=== PATIENT | male | born 1975 | race Two or more races ===

== ENCOUNTER 2022-07-15 07:40 | Day surgery (SDC) | payer MEDICAID, SELFPAY ==
--- NOTE | 2022-07-14 12:22 | HO.ANESPROP2 ---
Documented by User: Kerry Kan NP 07/14/22 12:22 HPI - Anesthesia Eval Consult details Narrative: 47yo M for Colonoscopy [facility] Past Medical History Medical History (Updated 07/14/22 @ 12:02 by Kezia Muller, CASEY) Arthritis Depression H/O non-insulin dependent diabetes mellitus HTN (hypertension) Hyperlipidemia Neuropathy Right cataract Social History Social History Patient Tobacco Use Status: Former Tobacco user Quit Date: 22 years ago Use of substances other than those prescribed or required for medical reasons: No Are you DNR?: No Advance Directives: No Advance Directives Information Provided: Yes Meds Allergies Allergy/AdvReac Type Severity Reaction Status Date / Time No Known Allergies Allergy Unverified 04/16/20 14:38 dust Allergy Unknown Uncoded 11/10/17 00:00 Home Medications Medication Instructions Recorded Confirmed Last Taken Type atorvastatin 20 mg tablet 1 tab PO DAILY 07/14/22 07/14/22 Unknown History dulaglutide 0.75 mg/0.5 mL mg subcut QWEEK 07/14/22 Unknown History subcutaneous pen injector (Trulicity) gabapentin 100 mg capsule 1 cap PO BID 07/14/22 07/14/22 Unknown History metformin 1,000 mg tablet 1 tab PO DAILY 07/14/22 07/15/22 Unknown History ustekinumab 90 mg/mL subcutaneous mg subcut 07/14/22 Unknown History syringe (Stelara) venlafaxine 37.5 mg 1 cap PO DAILY 07/14/22 07/14/22 Unknown History capsule,extended release 24 hr Exam Exam Date and Time: July 14, 2022 1222 Assessment and Plan Assessment Anesthesia Assessment: Chart Reviewed Documented by User: Jackeline Truong MD 07/15/22 09:35 [facility] Active Problems Active Problems: Denies AUDELIA but does snore Past Medical History Medical History (Updated 07/14/22 @ 12:02 by Kezia Muller RN) Arthritis Depression H/O non-insulin dependent diabetes mellitus HTN (hypertension) Hyperlipidemia Neuropathy Right cataract Family History Family history of problems with anesthesia: No Surgical History History of Problems with Anesthesia: No Social History Social History Patient Tobacco Use Status: Former Tobacco user Quit Date: 22 years ago Use of substances other than those prescribed or required for medical reasons: No Are you DNR?: No Advance Directives: No Advance Directives Information Provided: Yes Meds Allergies Allergy/AdvReac Type Severity Reaction Status Date / Time No Known Allergies Allergy Unverified 04/16/20 14:38 dust Allergy Unknown Uncoded 11/10/17 00:00 Home Medications Medication Instructions Recorded Confirmed Last Taken Type atorvastatin 20 mg tablet 1 tab PO DAILY 07/14/22 07/14/22 Unknown History dulaglutide 0.75 mg/0.5 mL mg subcut QWEEK 07/14/22 Unknown History subcutaneous pen injector (Trulicity) gabapentin 100 mg capsule 1 cap PO BID 07/14/22 07/14/22 Unknown History metformin 1,000 mg tablet 1 tab PO DAILY 07/14/22 07/15/22 Unknown History ustekinumab 90 mg/mL subcutaneous mg subcut 07/14/22 Unknown History syringe (Stelara) venlafaxine 37.5 mg 1 cap PO DAILY 07/14/22 07/14/22 Unknown History capsule,extended release 24 hr Exam Height,Weight and Vital Signs: Height 5 ft 5 in Weight 131.542 kg Vital Signs Temp Pulse Resp BP Pulse Ox O2 Del Method 07/15/22 08:13 97.0 F 83 18 159/80 H 97 Room Air Pertinent Lab Results Pertinent Lab Results: Lab Results 07/15/22 Range/Units 08:10 POC Glucose 139 H (60-115) mg/dL Airway Mallampati Class: II (Big neck) TM Dist: >3cm Neck ROM: Full Loose/Missing/Broken Teeth: Yes (Missing bottom left) Heart: RRR Lungs: CTAB Assessment and Plan Assessment Anesthesia Assessment: Anesthesia Plan Discussed Final Anesthetic Review Family History of Problems with Anesthesia: No History of Problems with Anesthesia: No NPO: Yes ASA Class: III Final Preanesthetic Review: No Changes in Pt Med Stat, Meds/Allgs Chart Reviewed, Consent Obtained/Reviewed and Anes Risks/Benef Reviewed Patient Risk: Intermediate Procedure Risk: Low Assessment/Block/Sedation in SS: Assess/Block/Sedation-SS Anesthetic Plan Anesthetic Plan: GA and MAC: Disposition: Standard PACU
[2022-07-15 08:13] VITALS: BP 159/80; PULSE 83; RESP 18; TEMP 36.1; O2SAT 97; BMI 48.2
[2022-07-15 08:22] LABS: Glucose, Whole Blood 139 mg/dL (60-115)
[2022-07-15] MEDS: Sodium Phosphate,Mono-Dibasic 133 ML ENEMA PR ×2 (08:52→09:00)
[2022-07-15] MEDS: Lactated Ringers 1,000 ML 100 ML IVCONT (08:59)
[2022-07-15 09:53] VITALS: BP 126/70; PULSE 100; RESP 20; TEMP 36.9; O2SAT 89
[2022-07-15 09:54] VITALS: O2SAT 98
--- NOTE | 2022-07-15 09:54 | PM.OP ---
Brief Operative Note Date of Service: 07/15/22 Pre-op diagnosis: Screening Post-op diagnosis: other (Diverticulosis) Procedure: Colonoscopy to the cecum and TI Surgeon: Jonathan Harvey Anesthesia: MAC Was an Maritime Guard used for this Procedure?: No Estimated blood loss (mL): 0 Pathology: none sent Condition: stable Disposition: PACU
[2022-07-15 10:08] VITALS: BP 127/69; PULSE 86; RESP 20; TEMP 36.3; O2SAT 97
--- NOTE | 2022-07-15 10:47 | OP_ITS ---
SURGEON: Jonathan Harvey MD INDICATIONS: The patient presents for evaluation of colorectal cancer screening. Full consent has been obtained from him for this, including risks of bleeding and perforation. PREOPERATIVE DIAGNOSIS: Colorectal cancer screening. POSTOPERATIVE DIAGNOSIS: PROCEDURE PERFORMED: Colonoscopy to the cecum and terminal ileum. ESTIMATED BLOOD LOSS: COMPLICATIONS: ANESTHESIA: Monitored anesthesia care. ASSISTANTS: SPECIMENS: POSTOPERATIVE DIAGNOSES: Colorectal cancer screening, mild sigmoid diverticulosis, small internal hemorrhoids. DESCRIPTION OF PROCEDURE: The patient was placed in the left lateral decubitus position. The digital rectal exam revealed no abnormalities. The Olympus video pediatric colonoscope was entered into the rectum and advanced easily to the cecum. Once in the cecum, I did identify a normal-appearing cecal pouch with appendiceal orifice and a normal-appearing ileocecal valve. The terminal ileum was cannulated and appeared normal. The scope was withdrawn back in the colon. The entire cecum and ileocecal valve appeared normal. The scope was slowly withdrawn assessing all mucosal surfaces carefully. For the most part, preparation was very good throughout the colon, although in the portions of the rectum and sigmoid colon, there was some residual stool and liquid, which were all irrigated and suctioned away as best as possible. I did not visualize any sign of polyps, colitis, nor angiodysplasia. There was a mild amount of sigmoid diverticulosis. In the rectum, the scope was retroflexed visualizing some internal hemorrhoids. The scope was straightened and withdrawn from the patient. He tolerated the procedure well and was returned to the recovery area in stable condition. IMPRESSION: 1. Mild sigmoid diverticulosis. 2. Small internal hemorrhoids. PLAN: Given today's negative exam and no family history of colon cancer, I would recommend a followup colonoscopy in 10 years for screening. He will otherwise see me on a p.r.n. basis. MD HE Templeton/ZAYRA / [id number]
== END 2022-07-15 10:50 | disposition home or self-care (01) ==
PROVIDERS: PCP Internal Medicine; Visit Provider Internal Medicine
PROC: 0DJD8ZZ Inspection of Lower Intestinal Tract, Via Natural or Artificial Opening Endoscopic (ICD-10-PCS; CPT 45378; principal; 2022-07-15 09:00)
DX: Z12.11 Encounter for screening for malignant neoplasm of colon (principal); Z83.71 Family history of colonic polyps; K57.30 Diverticulosis of large intestine without perforation or abscess without bleeding; K64.8 Other hemorrhoids; I10 Essential (primary) hypertension; E78.5 Hyperlipidemia, unspecified; E11.9 Type 2 diabetes mellitus without complications; G62.9 Polyneuropathy, unspecified; Z79.85 Long-term (current) use of injectable non-insulin antidiabetic drugs; Z79.899 Other long term (current) drug therapy; Z87.891 Personal history of nicotine dependence
CPT/HCPCS: 45378; 82947

== ENCOUNTER 2022-08-18 13:22 | Outpatient (REF) | payer MEDICAID, SELFPAY ==
--- NOTE | 2022-08-18 08:15 | EMG_ITS ---
Bilateral median and ulnar motor and sensory studies were performed. Bilateral radial sensory studies were performed and paraspinal muscles were tested with a needle. IMPRESSION: 1. Moderately severe bilateral median neuropathy across carpal tunnel. 2. [id number] bilateral ulnar neuropathy across cubital tunnel. MD SOLANGE Justice/JASONL / [id number]
== END 2022-08-18 13:23 | disposition home or self-care (01) ==
LOC: HO.NEURO 13:22
PROVIDERS: PCP Internal Medicine; Visit Provider Family Medicine
DX: R20.0 Anesthesia of skin (principal); E11.65 Type 2 diabetes mellitus with hyperglycemia
CPT/HCPCS: 95886; 95911

== ENCOUNTER → 2022-09-16 10:07 | Outpatient (BNVA) | payer MEDICAID, SELFPAY | PROVIDERS: PCP Internal Medicine; Visit Provider Nurse Practitioner Family | DX: G47.19 Other hypersomnia (principal); R06.83 Snoring; R40.0 Somnolence; I10 Essential (primary) hypertension | CPT/HCPCS: 99202 ==

== ENCOUNTER → 2022-10-07 14:00 | Outpatient (REF) | payer MEDICAID, SELFPAY | LOC: HO.SL 14:00 | PROVIDERS: Visit Provider Nurse Practitioner Family | DX: G47.33 Obstructive sleep apnea (adult) (pediatric) (principal); R06.83 Snoring; G47.19 Other hypersomnia; I10 Essential (primary) hypertension | CPT/HCPCS: 95806 ==

== ENCOUNTER 2022-11-02 10:50 | Outpatient (REF) | payer MEDICAID, SELFPAY ==
--- NOTE | ~2022-11-02 | XR_ITS ---
EXAMINATION: XR FOOT, LEFT CLINICAL INFORMATION: Anterior, dorsal pain. COMPARISON: Radiographs dated 03/30/2017. TECHNIQUE: AP, lateral, and oblique views of the left foot. FINDINGS: Bony alignment and mineralization are normal. No dislocation or right ankle joint effusion is seen. There is mild osteoarthritic change of the tibiotalar joint. At the anterior articular margin of the distal tibia, there are tiny avulsion fragments noted, possibly chronic avulsed osteophytes. An old, healed fracture is noted of the posterior malleolus. Boehler's angle is normal. There is a tiny posterior calcaneal spur. There are atherosclerotic calcifications. No focal soft tissue swelling, gas or foreign body is seen. XR/XR foot LT min 3V IMPRESSION: 1. At the anterior margin of the tibiotalar joint, there are tiny avulsions fragments, possibly chronically avulsed osteophytes. This requires clinical correlation. 2. No dislocation or left ankle joint effusion is seen. 3. There is a tiny posterior calcaneal spur.
== END 2022-11-02 10:51 | disposition home or self-care (01) ==
LOC: HO.XRAY 10:50
PROVIDERS: PCP Family Medicine; Visit Provider Family Medicine
DX: M79.672 Pain in left foot (principal)
CPT/HCPCS: 73630

== ENCOUNTER → 2022-11-30 10:59 | Outpatient (BNVA) | payer MEDICAID, SELFPAY | PROVIDERS: PCP Family Medicine; Visit Provider Orthopaedic Surgery | DX: G56.03 Carpal tunnel syndrome, bilateral upper limbs (principal); G56.23 Lesion of ulnar nerve, bilateral upper limbs | CPT/HCPCS: 99202 ==

== ENCOUNTER 2022-12-05 12:20 | Day surgery (SDC) | payer MEDICAID, SELFPAY ==
--- NOTE | 2022-12-05 09:29 | W.PM.OPN ---
Operative Note Operative Note Date of Service: 12/05/22 Narrative: Preop diagnosis: 1. Right Carpal tunnel syndrome Postop diagnosis: same Procedure: 1. Right Carpal tunnel release Surgeon: Sarah Gary MD Anesthesia: local block using 1% lidocaine with epinephrine Findings: Thickened transverse carpal ligament. EBL: Less than 5 mL Specimens: None Complications: None Disposition: Brought to recovery room in stable condition Plan: Follow-up for 10-14 days for wound check and suture removal Indications: The patient is 47 years old, with right carpal tunnel syndrome that has been unresponsive to nonoperative management. The risks and benefits of operative treatment including but not limited to risk of damage to blood vessels, nerves, tendons, infection, persistent pain, persistent symptoms, or possible need for additional surgery were discussed with the patient and the patient wishes to proceed with surgery. Procedure: Once consent was obtained a local block was performed using a combination of 1% lidocaine with epinephrine. The patient was then brought back to the operating suite and placed on the operative table in supine position. The right upper extremity was prepped and draped in a standard surgical fashion. Once assured that we had a good block, a 2.0 cm longitudinal incision was made centered over the carpal tunnel. The incision was made through the skin to the subcutaneous tissues using a #15 blade. Dissection was made down to the level of the transverse carpal ligament with care being taken to protect the palmar cutaneous nerve. Once the transverse carpal ligament was clearly visualized, a longitudinal incision was made in the transverse carpal ligament 1st using a #15 blade, then using tenotomy scissors under direct visualization. Care was taken to look for and protect the motor branch of the median nerve when seen in this area. Once satisfied with our carpal tunnel release the wound was copiously irrigated with normal saline and hemostasis was obtained with a brief period of local pressure. The skin edges were reapproximated with some 5.0 nylon suture material and a sterile dressing was applied. The patient appears to have tolerated the procedure well and with no complications. All digits were well vascularized at the conclusion of the case.
[2022-12-05 12:30] VITALS: BP 151/82; PULSE 87; RESP 18; TEMP 36.7; O2SAT 97; BMI 50.6
--- NOTE | 2022-12-05 14:45 | MHC.SHP ---
Pre-Procedural Eval Section A Date of Service: 12/05/22 Section B Chief Complaint: Carpal tunnel syndrome, right upper limb Allergies: Allergies Allergy/AdvReac Type Severity Reaction Status Date / Time No Known Allergies Allergy Unverified 11/30/22 11:29 Plan I have reviewed the history and physical and performed a pertinent physical examination on my patient. No changes have occurred unless specified. Time Spent With Patient Time: Total time managing care of this patient today ____ minutes.
--- NOTE | 2022-12-05 15:23 | MHC.SHP ---
Pre-Procedural Eval Section A Date of Service: 12/05/22 The patient is an INPATIENT: No Changes since office visit: No Cold of Flu in the past 2 weeks, No New Medical Problems, No Changes in Medication and No Patient answered all questions The History & Physical has been completed within 30 days and I have reviewed it.: Yes Section B Chief Complaint: Carpal tunnel syndrome, right upper limb Allergies: Allergies Allergy/AdvReac Type Severity Reaction Status Date / Time No Known Allergies Allergy Unverified 11/30/22 11:29 Plan I have reviewed the history and physical and performed a pertinent physical examination on my patient. No changes have occurred unless specified. Time Spent With Patient Time: Total time managing care of this patient today ____ minutes.
== END 2022-12-05 16:04 | disposition home or self-care (01) ==
PROVIDERS: Visit Provider Orthopaedic Surgery
PROC: (CPT 64721; principal; 2022-12-05 16:00)
DX: G56.01 Carpal tunnel syndrome, right upper limb (principal); R20.0 Anesthesia of skin; R20.2 Paresthesia of skin; I10 Essential (primary) hypertension; E78.5 Hyperlipidemia, unspecified; G62.9 Polyneuropathy, unspecified; E11.9 Type 2 diabetes mellitus without complications; L30.9 Dermatitis, unspecified; Z79.899 Other long term (current) drug therapy; Z87.891 Personal history of nicotine dependence
CPT/HCPCS: 64721; J0171

== ENCOUNTER → 2022-12-20 09:14 | Outpatient (BNVA) | payer MEDICAID, SELFPAY | PROVIDERS: Visit Provider Orthopaedic Surgery | DX: G56.03 Carpal tunnel syndrome, bilateral upper limbs (principal); G56.23 Lesion of ulnar nerve, bilateral upper limbs | CPT/HCPCS: 99212 ==

== ENCOUNTER → 2022-12-28 07:57 | Outpatient (BNVA) | payer MEDICAID, SELFPAY | PROVIDERS: PCP Family Medicine; Visit Provider Orthopaedic Surgery | DX: Z48.811 Encounter for surgical aftercare following surgery on the nervous system (principal); G56.02 Carpal tunnel syndrome, left upper limb | CPT/HCPCS: 99212 ==

== ENCOUNTER 2023-01-02 10:55 | Day surgery (SDC) | payer MEDICAID, SELFPAY ==
[2023-01-02 10:02] VITALS: BMI 50.5
[2023-01-02 11:10] VITALS: BP 175/61; PULSE 82; RESP 20; TEMP 36.6; O2SAT 97
--- NOTE | 2023-01-02 13:19 | MHC.SHP ---
Pre-Procedural Eval Section A Date of Service: 01/02/23 The patient is an INPATIENT: No Changes since office visit: No Cold of Flu in the past 2 weeks, No New Medical Problems, No Changes in Medication and No Patient answered all questions The History & Physical has been completed within 30 days and I have reviewed it.: Yes Section B Chief Complaint: Carpal tunnel syndrome, left upper limb Allergies: Allergies Allergy/AdvReac Type Severity Reaction Status Date / Time No Known Allergies Allergy Unverified 12/28/22 08:14 Plan I have reviewed the history and physical and performed a pertinent physical examination on my patient. No changes have occurred unless specified. Time Spent With Patient Time: Total time managing care of this patient today ____ minutes.
--- NOTE | 2023-01-02 13:19 | W.PM.OPN ---
Operative Note Operative Note Date of Service: 01/02/23 Narrative: Preop diagnosis: 1. left Carpal tunnel syndrome Postop diagnosis: same Procedure: 1. left Carpal tunnel release Surgeon: Sarah Gary MD Anesthesia: local block using 1% lidocaine with epinephrine Findings: Thickened transverse carpal ligament. EBL: Less than 5 mL Specimens: None Complications: None Disposition: Brought to recovery room in stable condition Plan: Follow-up for 10-14 days for wound check and suture removal Indications: The patient is 47 years old, with left carpal tunnel syndrome that has been unresponsive to nonoperative management. The risks and benefits of operative treatment including but not limited to risk of damage to blood vessels, nerves, tendons, infection, persistent pain, persistent symptoms, or possible need for additional surgery were discussed with the patient and the patient wishes to proceed with surgery. Procedure: Once consent was obtained a local block was performed using a combination of 1% lidocaine with epinephrine. The patient was then brought back to the operating suite and placed on the operative table in supine position. The left upper extremity was prepped and draped in a standard surgical fashion. Once assured that we had a good block, a 2.0 cm longitudinal incision was made centered over the carpal tunnel. The incision was made through the skin to the subcutaneous tissues using a #15 blade. Dissection was made down to the level of the transverse carpal ligament with care being taken to protect the palmar cutaneous nerve. Once the transverse carpal ligament was clearly visualized, a longitudinal incision was made in the transverse carpal ligament 1st using a #15 blade, then using tenotomy scissors under direct visualization. Care was taken to look for and protect the motor branch of the median nerve when seen in this area. Once satisfied with our carpal tunnel release the wound was copiously irrigated with normal saline and hemostasis was obtained with a brief period of local pressure. The skin edges were reapproximated with some 5.0 nylon suture material and a sterile dressing was applied. The patient appears to have tolerated the procedure well and with no complications. All digits were well vascularized at the conclusion of the case.
== END 2023-01-02 13:40 | disposition home or self-care (01) ==
PROVIDERS: PCP Family Medicine; Visit Provider Orthopaedic Surgery
PROC: (CPT 64721; principal; 2023-01-02 11:20)
DX: G56.02 Carpal tunnel syndrome, left upper limb (principal); E11.9 Type 2 diabetes mellitus without complications; G62.9 Polyneuropathy, unspecified; I10 Essential (primary) hypertension; E78.5 Hyperlipidemia, unspecified; F32.A Depression, unspecified; L30.9 Dermatitis, unspecified; Z87.891 Personal history of nicotine dependence; Z79.899 Other long term (current) drug therapy
CPT/HCPCS: 64721; J0171

== ENCOUNTER → 2023-01-17 08:59 | Outpatient (BNVA) | payer MEDICAID, SELFPAY | PROVIDERS: PCP Family Medicine; Visit Provider Orthopaedic Surgery | DX: Z47.89 Encounter for other orthopedic aftercare (principal); Z86.69 Personal history of other diseases of the nervous system and sense organs | CPT/HCPCS: 99212 ==

== ENCOUNTER 2023-04-05 11:15 | Outpatient (AMB) | payer MEDICAID, SELFPAY ==
--- NOTE | 2023-04-05 11:18 | A.OFFVIS_ITS ---
Intake Vital Signs 04/05/23 11:27 Weight 289 lb BP 128/82 Blood Pressure Location Lt brachial Position Sitting Pulse 78 Pulse Source Pulse Oximeter Pulse Oximetry (%) 97 Oxygen Delivery Method Room Air Intake Visit Reasons: 2m follow up AUDELIA-Confirmed Intake Note: F/U AUDELIA Garment Fitter Required: No Allergies No Known Allergies Allergy (Unverified 04/05/23 11:19) HPI HPI Comments History of Present Illness Details 47 y/o male patient presents for follow up of sleep study. The home sleep study result was significant for severe degree of sleep apnea. The AHI was 32/hr and oxygen rukhsana was 73%. Pt started APAP [id number]. The CPAP compliance and therapy response reviewed. Pt is not compliant his CPAP. He reports PTSD and having difficulty using CPAP mask. He has psychiatry and having next and plans to start some medications. He only can sleep 4 hrs with CPAP. [facility] Medical History (Updated 05/03/23 @ 22:11 by Brittney Pierre CNP) Cataract Right cataract Neuropathy Depression Hyperlipidemia Arthritis HTN (hypertension) H/O non-insulin dependent diabetes mellitus Surgical History (Updated 04/05/23 @ 11:26 by Manasa Lacey CMA) History of carpal tunnel surgery Family History Mother HTN (hypertension) Age related osteoporosis Cancer Dementia Father Alzheimer disease Social History (Updated 04/05/23 @ 11:26 by Manasa Lacey CMA) Alcohol intake: never Patient Tobacco Use Status: Former Tobacco user Quit Date: 22 years ago Review of Systems Const All systems reviewed & are unremarkable except as noted in HPI and below ENT Reports Normal hearing present Neuro Reports Normal hearing present Physical Exam Vital Signs: Last Vital Signs Pulse 78 04/05/23 11:27 BP 128/82 04/05/23 11:27 Pulse Ox 97 04/05/23 11:27 Oxygen Delivery Method Room Air 04/05/23 11:27 Const General: cooperative Nutritional Appearance: obese Orientation/consciousness: patient oriented x3 HEENT Throat: Yes other (mallampati grade 4) Neck Neck: Yes full ROM and Yes supple Resp Effort & Inspection: normal respiratory effort and able to speak in complete sentences Neuro General: patient oriented x3, gait normal and moves all extremities Cranial nerves: Yes Bilaterally intact EOM present, Yes Normal facial strength present, Yes Midline tongue present, Yes Symmetric palate elevation present, Yes Normal hearing present, Yes Ability to bilaterally rotate head present and Yes Ability to bilaterally elevate shoulders present Cognition (Neuro): normal cognition Gait exam (Neuro): Normal gait present Motor exam (neuro): 5/5 motor strength present throughout, Pronator motor function not present and no tremor noted Psych Appearance: grossly normal Mental Status: mental status grossly normal Affect: normal affect Attitude: cooperative Assessment & Plan Assessment & Plan (1) AUDELIA on CPAP: Code(s): G47.33 - Obstructive sleep apnea (adult) (pediatric) Plan Advised patient to try CPAP while he is awake, when he watches TV or rest. Contineu to try to use CPAP nightly and more than 4 hrs to get use to it. F/u with psychiatrist to treat PTSD. Coding Level of Care Code Est Pt Level 3 (54671) Diagnoses AUDELIA on CPAP G47.33
[2023-04-05 11:27] VITALS: BP 128/82; PULSE 78; O2SAT 97
== END 2023-04-05 11:38 | disposition home or self-care (01) ==
PROVIDERS: Visit Provider Nurse Practitioner Family
DX: G47.33 Obstructive sleep apnea (adult) (pediatric) (principal)
CPT/HCPCS: 99213

== ENCOUNTER → 2023-04-05 11:15 | Outpatient (BNVA) | payer MEDICAID, SELFPAY | PROVIDERS: Visit Provider Nurse Practitioner Family | DX: G47.33 Obstructive sleep apnea (adult) (pediatric) (principal) | CPT/HCPCS: 99212 ==

== ENCOUNTER 2023-06-14 11:52 | Outpatient (REF) | payer MEDICAID, SELFPAY ==
[2023-06-14 13:23] LABS: MANUAL DIFF FLAG NO
[2023-06-14 13:35] LABS: Basophils Absolute Auto 0.1 X10*3/uL (0.0-0.2); Basophils Percent Auto 0.7 % (0-2); Eosinophils Absolute Auto 0.5 X10*3/uL (0.0-0.4); Hematocrit 40.2 % (42.0-52.0); Hemoglobin 13.2 g/dl (14.0-18.0); Imm Gran Abs Auto 0.04 X10*3/uL (0.00-0.03); Imm Gran Pct Auto 0.4 % (0.0-0.4); Lymphocytes Absolute Auto 2.7 X10*3/uL (1.2-4.9); Lymphocytes Percent Auto 26.5 % (20-40); Mean Corpuscular HGB Conc 32.8 g/dl (31.0-36.0); Mean Corpuscular Hemoglobin 27.5 pg (27.0-33.0); Mean Corpuscular Volume 83.8 fL (80.0-98.0); Mean Platelet Volume 10.1 fL (9.4-12.4); Monocytes Absolute Auto 0.6 X10*3/uL (0.1-1.2); Monocytes Percent Auto 6.4 % (2-11); Neutrophils Absolute Auto 6.1 x10*3/uL (2.0-8.3); Platelet Count 266 X10*3/uL (160-400); Red Cell Distribution Width 13.2 % (11.0-16.0); White Blood Count 10.1 X10*3/uL (4.8-10.8)
[2023-06-14 13:51] LABS: Alanine Aminotransferase 68 U/L (0-40); Alkaline Phosphatase 92 U/L (39-117); Anion Gap 9 (12-20); Aspartate Amino Transferase 31 U/L (5-37); Bilirubin Total 0.3 mg/dL (0.0-1.0); Blood Urea Nitrogen 9 mg/dL (9-16); C Reactive Protein 0.81 mg/dL (< or = 0.50); Calcium 9.5 mg/dL (8.4-10.2); Carbon Dioxide 28 mmol/L (22-29); Chloride 104 mmol/L (96-108); Estimated Glomerular Filt Rate > 60; Glucose Random 168 mg/dL (60-115); Potassium 4.4 mmol/L (3.3-5.1); Sodium 137 mmol/L (135-145); Total Protein 7.4 g/dL (6.5-8.0)
[2023-06-14 14:06] LABS: TSH reflex Free T4 1.35 uIU/mL (0.32-4.0)
[2023-06-14 14:07] LABS: Cholesterol 103 mg/dL (<200); HDL Cholesterol 33 mg/dL (>40); LDL Cholesterol Calculated 48 mg/dL (<100); Triglycerides 113 mg/dL (<150)
[2023-06-14 14:16] LABS: Erythrocyte Sedimentation Rate 26 MM/HR (0-15)
[2023-06-14 14:32] LABS: Creatinine Urine 74.34 mg/dL
[2023-06-14 14:52] LABS: Reflex LDLD? No
== END 2023-06-14 11:53 | disposition home or self-care (01) ==
LOC: HO.HHCL 11:52
PROVIDERS: Visit Provider Family Medicine
DX: M25.50 Pain in unspecified joint (principal); M79.10 Myalgia, unspecified site; E11.65 Type 2 diabetes mellitus with hyperglycemia
CPT/HCPCS: 36415; 80053; 80061; 82043; 82550; 82570; 84443; 85025; 85652; 86140

== ENCOUNTER 2023-07-12 13:41 | Outpatient (REF) | payer MEDICAID, SELFPAY ==
--- NOTE | ~2023-07-12 | XR_ITS ---
EXAMINATION: Bilateral hand series. Bilateral foot series. CLINICAL INFORMATION: Pain in the joints COMPARISON: X-ray the left foot October 2022 TECHNIQUE: 3 views of each hand. 3 views of each foot FINDINGS: Right hand: Bones joints and soft tissues are normal. No erosions. Arterial calcification noted. Left hand: The bones joints and soft tissues are normal. No erosions. Arterial calcification noted. Right foot: There is mild to moderate osteoarthritis of the first metatarsophalangeal joint with marginal osteophytes and mild joint space narrowing. There are small calcaneal spurs. Radiopaque metallic object overlies the ankle region. Arterial calcification. Left foot: Small calcaneal spurs. Arterial calcification. Bones joints and soft tissues otherwise unremarkable. XR/XR hand RT min 3V IMPRESSION: RIGHT HAND: Normal. Calcific atherosclerotic disease LEFT HAND: Normal. Calcific atherosclerotic disease. Right foot: Mild to moderate osteoarthritis of the first metatarsophalangeal joint. Calcific atherosclerotic disease. Calcaneal spurs Left foot: Calcaneal spurs. Calcific atherosclerotic disease.
--- NOTE | ~2023-07-12 | XR_ITS ---
EXAMINATION: XR SACROILIAC JOINTS CLINICAL INFORMATION: Pain in the joint COMPARISON: None available. TECHNIQUE: 3 views of the sacroiliac joints FINDINGS: Bones and soft tissues are normal. No fracture. Alignment is anatomic. Sacroiliac joint spaces are well-maintained without erosions or surrounding sclerosis. XR/XR sacroiliac joint min 3V IMPRESSION: Normal sacroiliac joints.
--- NOTE | ~2023-07-12 | XR_ITS ---
EXAMINATION: Bilateral hand series. Bilateral foot series. CLINICAL INFORMATION: Pain in the joints COMPARISON: X-ray the left foot October 2022 TECHNIQUE: 3 views of each hand. 3 views of each foot FINDINGS: Right hand: Bones joints and soft tissues are normal. No erosions. Arterial calcification noted. Left hand: The bones joints and soft tissues are normal. No erosions. Arterial calcification noted. Right foot: There is mild to moderate osteoarthritis of the first metatarsophalangeal joint with marginal osteophytes and mild joint space narrowing. There are small calcaneal spurs. Radiopaque metallic object overlies the ankle region. Arterial calcification. Left foot: Small calcaneal spurs. Arterial calcification. Bones joints and soft tissues otherwise unremarkable. XR/XR hand LT min 3V IMPRESSION: RIGHT HAND: Normal. Calcific atherosclerotic disease LEFT HAND: Normal. Calcific atherosclerotic disease. Right foot: Mild to moderate osteoarthritis of the first metatarsophalangeal joint. Calcific atherosclerotic disease. Calcaneal spurs Left foot: Calcaneal spurs. Calcific atherosclerotic disease.
--- NOTE | ~2023-07-12 | XR_ITS ---
EXAMINATION: Bilateral hand series. Bilateral foot series. CLINICAL INFORMATION: Pain in the joints COMPARISON: X-ray the left foot October 2022 TECHNIQUE: 3 views of each hand. 3 views of each foot FINDINGS: Right hand: Bones joints and soft tissues are normal. No erosions. Arterial calcification noted. Left hand: The bones joints and soft tissues are normal. No erosions. Arterial calcification noted. Right foot: There is mild to moderate osteoarthritis of the first metatarsophalangeal joint with marginal osteophytes and mild joint space narrowing. There are small calcaneal spurs. Radiopaque metallic object overlies the ankle region. Arterial calcification. Left foot: Small calcaneal spurs. Arterial calcification. Bones joints and soft tissues otherwise unremarkable. XR/XR foot RT 2V IMPRESSION: RIGHT HAND: Normal. Calcific atherosclerotic disease LEFT HAND: Normal. Calcific atherosclerotic disease. Right foot: Mild to moderate osteoarthritis of the first metatarsophalangeal joint. Calcific atherosclerotic disease. Calcaneal spurs Left foot: Calcaneal spurs. Calcific atherosclerotic disease.
--- NOTE | ~2023-07-12 | XR_ITS ---
EXAMINATION: Bilateral hand series. Bilateral foot series. CLINICAL INFORMATION: Pain in the joints COMPARISON: X-ray the left foot October 2022 TECHNIQUE: 3 views of each hand. 3 views of each foot FINDINGS: Right hand: Bones joints and soft tissues are normal. No erosions. Arterial calcification noted. Left hand: The bones joints and soft tissues are normal. No erosions. Arterial calcification noted. Right foot: There is mild to moderate osteoarthritis of the first metatarsophalangeal joint with marginal osteophytes and mild joint space narrowing. There are small calcaneal spurs. Radiopaque metallic object overlies the ankle region. Arterial calcification. Left foot: Small calcaneal spurs. Arterial calcification. Bones joints and soft tissues otherwise unremarkable. XR/XR foot LT 2V IMPRESSION: RIGHT HAND: Normal. Calcific atherosclerotic disease LEFT HAND: Normal. Calcific atherosclerotic disease. Right foot: Mild to moderate osteoarthritis of the first metatarsophalangeal joint. Calcific atherosclerotic disease. Calcaneal spurs Left foot: Calcaneal spurs. Calcific atherosclerotic disease.
--- NOTE | ~2023-07-12 | XR_ITS ---
EXAMINATION: XR CERVICAL SPINE CLINICAL INFORMATION: Psoriasis, unspecified COMPARISON: None available. TECHNIQUE: 4 views of the cervical spine were obtained. FINDINGS: The tip of the odontoid is obscured on the open-mouth view. C7 is obscured by the soft tissues of the patient's shoulder on the lateral view. Is partly seen on the Swimmer's view. There is straightening of the usual cervical lordosis which can be seen with muscle spasm or be due to patient positioning. There is no fracture or subluxation. Prevertebral soft tissues are within normal limits. Anterior marginal osteophytes extend off the inferior endplate of C6. There is no significant disc space narrowing. XR/XR cervical spine 3V IMPRESSION: 1. Straightening of the usual cervical lordosis which can be seen with muscle spasm or be due to patient positioning. 2. Anterior marginal osteophytes extend off the inferior endplate of C6.
--- NOTE | ~2023-07-12 | XR_ITS ---
EXAMINATION: XR LUMBOSACRAL SPINE CLINICAL INFORMATION: Pain in unspecified joint COMPARISON: None available. TECHNIQUE: Three views of the lumbosacral spine. FINDINGS: There are 5 nonrib-bearing lumbar-type vertebral bodies. The height of the vertebral bodies is well-maintained. There is no disc space narrowing. There is no spondylolisthesis. There is slight straightening of the usual lumbar lordosis which can be seen with muscle spasm. There are small early anterior marginal osteophytes from L2 through L5. Mild degenerative facet joint disease seen at L4-L5 and L5-S1. There is mild sclerosis noted about the inferior aspects of both sacroiliac joints. XR/XR lumbar spine 2-3V IMPRESSION: 1. Muscle spasm. 2. Mild degenerative facet joint disease at L4-L5 and L5-S1. 3. Mild sclerosis about the inferior aspects of the sacroiliac joints. Dedicated radiographs of the cingulate joints could be obtained.
[2023-07-12 15:12] LABS: MANUAL DIFF FLAG NO
[2023-07-12 15:28] LABS: Basophils Absolute Auto 0.1 X10*3/uL (0.0-0.2); Basophils Percent Auto 0.7 % (0-2); Eosinophils Absolute Auto 0.4 X10*3/uL (0.0-0.4); Eosinophils Percent Auto 4.1 % (0-4); Hemoglobin 12.9 g/dl (14.0-18.0); Imm Gran Abs Auto 0.05 X10*3/uL (0.00-0.03); Imm Gran Pct Auto 0.5 % (0.0-0.4); Lymphocytes Absolute Auto 2.8 X10*3/uL (1.2-4.9); Lymphocytes Percent Auto 27.9 % (20-40); Mean Corpuscular HGB Conc 33.9 g/dl (31.0-36.0); Mean Corpuscular Hemoglobin 28.5 pg (27.0-33.0); Mean Corpuscular Volume 84.1 fL (80.0-98.0); Mean Platelet Volume 10.3 fL (9.4-12.4); Monocytes Absolute Auto 0.7 X10*3/uL (0.1-1.2); Monocytes Percent Auto 6.7 % (2-11); Neutrophils Percent Auto 60.1 % (45-73); Platelet Count 236 X10*3/uL (160-400); Red Blood Count 4.52 X10*6/uL (4.60-5.80); Red Cell Distribution Width 13.2 % (11.0-16.0); White Blood Count 9.9 X10*3/uL (4.8-10.8)
[2023-07-12 16:53] LABS: Alanine Aminotransferase 92 U/L (0-40); Alkaline Phosphatase 95 U/L (39-117); Anion Gap 12 (12-20); Aspartate Amino Transferase 46 U/L (5-37); Bilirubin Total 0.3 mg/dL (0.0-1.0); Blood Urea Nitrogen 11 mg/dL (9-16); Calcium 9.6 mg/dL (8.4-10.2); Carbon Dioxide 28 mmol/L (22-29); Chloride 101 mmol/L (96-108); Estimated Glomerular Filt Rate > 60; Glucose Random 164 mg/dL (60-115); Potassium 3.9 mmol/L (3.3-5.1); Sodium 137 mmol/L (135-145); Total Protein 7.4 g/dL (6.5-8.0)
[2023-07-14 14:28] LABS: SM/Ribonucleoprotein Ab <1.0 NEG AI (<1.0 NEG); Smith Protein <1.0 NEG AI (<1.0 NEG)
[2023-07-17 23:03] LABS: HLA B27 Negative (Negative)
[2023-07-18 11:14] LABS: Anti Nuclear Antibody Screen NEGATIVE (NEGATIVE)
== END 2023-07-12 13:42 | disposition home or self-care (01) ==
LOC: HO.XRAY 13:41
PROVIDERS: PCP Family Medicine; Visit Provider Nurse Practitioner Family
DX: M25.50 Pain in unspecified joint (principal); L40.9 Psoriasis, unspecified; E11.42 Type 2 diabetes mellitus with diabetic polyneuropathy; M15.9 Polyosteoarthritis, unspecified
CPT/HCPCS: 36415; 72040; 72100; 72202; 73130; 73620; 80053; 85025; 86038; 86235; 86812; 99212

== ENCOUNTER 2023-07-12 13:41 | Outpatient (AMB) | payer MEDICAID, SELFPAY ==
--- NOTE | 2023-07-12 13:52 | MHC.OFFVIS ---
Intake Vital Signs 07/12/23 13:54 Height 5 ft 5 in Weight 287 lb 11.252 oz BMI 47.9 BP 140/72 H Blood Pressure Location Lt brachial Position Sitting Respiration 17 Pulse 63 Pulse Source Pulse Oximeter Temp 97.2 F Temp Source Tympanic Pulse Oximetry (%) 98 Oxygen Delivery Method Room Air Intake Visit Reasons: Polyarthralgia Local Delivery Truck Driver Required: No Allergies No Known Allergies Allergy (Unverified 07/12/23 13:55) Medication List - Last Reconciled 07/12/23 by Cece Ruiz RN atorvastatin 20 mg PO BEDTIME dulaglutide (Trulicity) mg subcut QWEEK gabapentin 1 cap PO BID losartan 100 mg PO DAILY metformin 1,000 mg PO BID sertraline 25 mg PO QAM sildenafil (Viagra) 50 mg PO DAILY PRN triamcinolone acetonide 0.1% appl topical ustekinumab (Stelara) mg subcut HPI HPI Comments History of Present Illness Details Dalton is a 47 y/o male patient with history of psoriasis, HTN and T2DM, sleep apnea, who presents for evaluation of joint pain, possibly psoriatic arthritis. The patient reports he has been suffering from increasing joint pain for many years, more in the last 2 years. He does endorse that his knees are [id number] per Ortho and the pain has lessened in both knees since he has lost weight. His main concern is stiffness and pain in upper back, his neck and shoulders. He also reports pain/tenderness at the dorsum of his feet and burning to the dorsum of his hands. He has had bilateral carpal tunnel surgery less than a year ago and reports residual tenderness to the incision sites. He currently is on Stelara for psoriasis. He has had 3 injections for Stelara and is due for the next injection within a month. He reports that Stelara has been very effective in clearing up and managing his psoriasis. He denies any side effects from Stelara. His psoriasis was always treated with topicals, therefore Stelara is the 1st immunomodulator he is prescribed. When asked, the patient denies erythematous, warm, swollen joints, plantar fasciitis, uveitis, sacroiliitis and SI joint pain, lower back pain, chronic tendinitis, and Achilles tendons pain. He denies morning stiffness lasting more than 10 minutes. He states when he gets up in the morning he does feel some stiffness but once he gets moving he is fine within 5-10 minutes. Patient denies Raynaud's phenomenon, butterfly rash on face or other rashes; denies photosensitivity - getting sick or developing a rash from being out in the sun; denies blood or froth in urine; patient denies SOB urelated to his deconditioned state, chest pain. Patient denies hx of Carditis or Pleuritis. Patient denies any history of DVT/PE. Denies fevers, excessive fatigue, unexplained weight-loss or weight-gain; Denies: thinning hair or hair loss. Denies: dry, itchy eyes, red burning eyes needing steroids to treat; dry mouth, mouth sores or ulcers; nose bleed; ringing in the ear Denies abdominal pain, blood or mucous in stool; nausea, vomiting and diarrhea , difficulty swallowing, heartburn. He has no personal or known family history of inflammatory or autoimmune processes, Crohn's or ulcerative colitis. FOR[facility]LY [facility] Medical History Cataract Right cataract Neuropathy Depression Hyperlipidemia Arthritis HTN (hypertension) H/O non-insulin dependent diabetes mellitus Surgical History History of carpal tunnel surgery Family History Mother HTN (hypertension) Age related osteoporosis Cancer Dementia Father Alzheimer disease Social History Alcohol intake: never Patient Tobacco Use Status: Former Tobacco user Quit Date: 22 years ago Review of Systems Const All systems reviewed & are unremarkable except as noted in HPI and below Physical Exam Vital Signs: Last Vital Signs Temp 97.2 F 07/12/23 13:54 Pulse 63 07/12/23 13:54 Resp 17 07/12/23 13:54 BP 140/72 H 07/12/23 13:54 Pulse Ox 98 07/12/23 13:54 Oxygen Delivery Method Room Air 07/12/23 13:54 BMI result Body Mass Index 47.9 APPEARANCE: Patient in no acute distress EYES no redness, pupils equal and reactive to light, eyelids normal EARS:? External ear normal, canal clear and tympanic membrane normal. NOSE/SINUS:? Airflow through both nares, no nasal discharge, no bleeding THROAT:? Oral mucosa moist, no ulcerations NECK:? No thyromegaly or masses, no adenopathy, trachea midline. HEART:? Regular rhythm, S1-S2 heard, no murmurs, rubs or gallops. LUNG:? Clear to percussion and auscultation ABD:? Normal bowel sounds, no organomegaly, masses or tenderness. EXTREMITIES:? No edema, no calf tenderness, normal peripheral pulses. NEURO:? Oriented and alert x3.? No focal weakness.? Reflexes symmetric.? Gait normal. SKIN:? There are no skin lesions evident. No objective signs of Raynaud's phenomenon. JOINT EXAM: ?? Cervical Spine:.? Full range of motion without pain; no tenderness. Thoracic Spine:.? No scoliosis.? No tenderness on palpation. Lumbar Spine:.? Alignment normal.? Full range of motion without pain, no tenderness. Chest Wall:.? No tenderness, swelling, increased warmth or erythema. Hands:.? Normal pain-free range of motion without tenderness, swelling, increased warmth or erythema. Able to make a full fist and has a good blower insulator strength. No active synovitis otherwise Wrists:.? Normal pain-free range of motion without tenderness, swelling, increased warmth or erythema. Elbows:. Normal pain-free range of motion without tenderness, swelling, increased warmth or erythema. Shoulders:.?? Full range of motion without pain. No tenderness, weakness, swelling, increased warmth or erythema. Hips:.? Full range of motion without pain. Hip bursa:.? No tenderness. Knees:.?? Normal pain-free range of motion without tenderness, swelling, increased warmth or erythema.? There is no effusion or crepitation Ankles:.? Bilateral Normal range of motion with mild discomfort on the left ankle, with tenderness, trace swelling but no increased warmth or erythema. Ankle monitor in place Feet:.? Normal pain-free range of motion without swelling, increased warmth or erythema. Tenderness to bilateral dorsum Tender points:? No tenderness to digital palpation at the occiput, trapezius, second rib, lateral epicondyle, knees, greater trochanter and gluteal area bilaterally. ? Results Reviewed Results Reviewed: Laboratory Tests 06/14/23 06/14/23 11:57 11:59 Hgb 13.2 L Hct 40.2 L Eos % (Auto) 5.0 H ESR 26 H ALT 68 H C-Reactive Protein 0.81 H Microalb/Creat Ratio 47.0 H 11/02/2022 EXAMINATION: XR FOOT, LEFT CLINICAL INFORMATION: Anterior, dorsal pain. COMPARISON: Radiographs dated 03/30/2017. TECHNIQUE: AP, lateral, and oblique views of the left foot. FINDINGS: Bony alignment and mineralization are normal. No dislocation or right ankle joint effusion is seen. There is mild osteoarthritic change of the tibiotalar joint. At the anterior articular margin of the distal tibia, there are tiny avulsion fragments noted, possibly chronic avulsed osteophytes. An old, healed fracture is noted of the posterior malleolus. Boehler's angle is normal. There is a tiny posterior calcaneal spur. There are atherosclerotic calcifications. No focal soft tissue swelling, gas or foreign body is seen. XR/XR foot LT min 3V IMPRESSION: 1. At the anterior margin of the tibiotalar joint, there are tiny avulsions fragments, possibly chronically avulsed osteophytes. This requires clinical correlation. 2. No dislocation or left ankle joint effusion is seen. 3. There is a tiny posterior calcaneal spur. Assessment & Plan Assessment & Plan (1) Polyarthralgia: Code(s): M25.50 - Pain in unspecified joint (2) Psoriasis: Code(s): L40.9 - Psoriasis, unspecified (3) Type 2 diabetes mellitus with diabetic polyneuropathy: Code(s): E11.42 - Type 2 diabetes mellitus with diabetic polyneuropathy Qualifiers: Diabetes mellitus jail insulin use: without jail use Qualified Code(s): E11.42 - Type 2 diabetes mellitus with diabetic polyneuropathy (4) Primary osteoarthritis involving multiple joints: Code(s): M15.9 - Polyosteoarthritis, unspecified Plan #Polyarthralgia: Zeferino, 46 year old male, is here on referral from his PCP for evaluation of arthralgias, questioning psoriatic arthritis (PsA), given his history of psoriasis and mild elevations in the ESR(26) and CRP(0.81). After careful initial review of his medical history, diagnostic and a physical examination, it is not clear to me that patient has an inflammatory arthritis, psoriatic arthritis. Features of psoriatic arthritis can include uveitis, chronic tendinitis, Achilles tendonitis, lower back pain and red, warm, swollen joints. The patient has denied these features and none observed on PE. The mild elevations in his acute phase reactants may be related to his T2DM. Patients with type 2 diabetes mellitus can have persistent elevation in the sed rate. Additionally, if the patient does have (PsA), the joint pain attributed to PSA is likely being addressed by Stelara. Consequently, I believe the residual joint discomfort is related to osteoarthritis. If were were to treat the patient for PsA, the options would be limited a non-biologic DMARD such as Methotrexate, Leflunomide or sulfasalzine. However, a review of his labs show elevation in the ALT (68) which already shows a potential risk for liver toxicity on these medications. Patient is unaware that is liver enzyme is elevated and denies a known history of fatty liver. The ALT could be due to the STELARA or the atorvastatin. I will start him on a 1 month course of Prednisone and reassess for improvement to joint pain of neck and shoulder, dorsum of feet and hands. #Osteoarthritis: I do think he has osteoarthritis that may be complicated by obesity. Patient did share that his knees are [id number] per Ortho and his knee pains did improve after his weight loss (down from 350 to 287). I also think that the pain and tenderness to the dorsum of his bilateral feet is likely related to his weight. I encouraged patient to continue with his weight loss and to make sure to wear proper shoes that support the arches of his foot. In addition he does have diabetic neuropathy. I will order labs and x-rays for further evaluation. #Psoriasis:His skin is clear and there was no evidence of rash on PE. The patient should continue with the Stelara as prescribed and continue to follow with derm. #T2DM: Patient will be taking the prednisone, I cautioned him to monitor his blood sugar closely. Patient had reported that he does not do fingersticks daily. I encouraged him that it is important to keep his blood sugar under 200 while on prednisone and patient knows to call the office. If his blood sugar consistently gets over 200 we will temporarily prescribe after sliding scale insulin. Orders: Orders XR sacroiliac joint min 3V 07/12/23 L40.9 - Psoriasis, unspecified, M25.50 - Pain in unspecified joint HLA B27 07/12/23 L40.9 - Psoriasis, unspecified, M25.50 - Pain in unspecified joint BELA Reflex Titer and Pattern 07/12/23 L40.9 - Psoriasis, unspecified, M25.50 - Pain in unspecified joint Anti Extractable Nuclear Ag 07/12/23 L40.9 - Psoriasis, unspecified, M25.50 - Pain in unspecified joint XR cervical spine 3V 07/12/23 L40.9 - Psoriasis, unspecified, M25.50 - Pain in unspecified joint XR hand LT min 3V 07/12/23 L40.9 - Psoriasis, unspecified, M25.50 - Pain in unspecified joint XR foot RT 2V 07/12/23 L40.9 - Psoriasis, unspecified, M25.50 - Pain in unspecified joint XR lumbar spine 2-3V 07/12/23 L40.9 - Psoriasis, unspecified, M25.50 - Pain in unspecified joint Complete Blood Count Auto Diff 07/12/23 L40.9 - Psoriasis, unspecified, M25.50 - Pain in unspecified joint Comprehensive Met. Panel 07/12/23 L40.9 - Psoriasis, unspecified, M25.50 - Pain in unspecified joint XR hand RT min 3V 07/12/23 L40.9 - Psoriasis, unspecified, M25.50 - Pain in unspecified joint XR foot LT 2V 07/12/23 L40.9 - Psoriasis, unspecified, M25.50 - Pain in unspecified joint Medications: New prednisone 4 tablets per day x 7 days, 3 tablets per day x 7 days; 2 tablets per day x 7 days, 1 tablet per day x 7 days stop; 75 tabs 0RF Coding Level of Care Code New Pt Level 5 (60936) Diagnoses Polyarthralgia M25.50 Psoriasis L40.9 Type 2 diabetes mellitus with diabetic polyneuropathy, without long-term current use of insulin E11.42 Diabetes mellitus credit cashier insulin use: without jail use Primary osteoarthritis involving multiple joints M15.9
[2023-07-12 13:54] VITALS: BP 140/72; PULSE 63; RESP 17; TEMP 36.2; O2SAT 98; BMI 47.9
== END 2023-07-12 14:38 | disposition home or self-care (01) ==
LOC: HO.RHE 13:41
PROVIDERS: PCP Family Medicine; Visit Provider Nurse Practitioner Family
DX: M15.9 Polyosteoarthritis, unspecified (principal); M25.50 Pain in unspecified joint; L40.9 Psoriasis, unspecified; E11.42 Type 2 diabetes mellitus with diabetic polyneuropathy
CPT/HCPCS: 99204

== ENCOUNTER 2023-08-04 11:47 | Outpatient (REF) | payer MEDICAID, SELFPAY | END 2023-08-04 11:48 | disposition home or self-care (01) | LOC: HO.HHCL 11:47 | PROVIDERS: Visit Provider Internal Medicine | DX: Z11.1 Encounter for screening for respiratory tuberculosis (principal); L40.9 Psoriasis, unspecified | CPT/HCPCS: 36415; 86481 ==

== ENCOUNTER 2023-08-15 08:03 | Outpatient (REF) | payer MEDICAID, SELFPAY ==
--- NOTE | ~2023-08-15 | US_ITS ---
EXAMINATION: US ABDOMEN COMPLETE CLINICAL INFORMATION: Elevated ALT. COMPARISON: None available. TECHNIQUE: Real-time imaging of the abdominal viscera. FINDINGS: PANCREAS: Normal. ABDOMINAL AORTA: The proximal, mid, and distal segments are normal in caliber. INFERIOR VENA CAVA: Visualized portions are normal. LIVER: The liver is normal in size. The liver contour is normal. Diffuse increased echogenicity of liver parenchyma. No focal hepatic lesion. There is no intrahepatic biliary duct dilatation seen. GALLBLADDER: Normal. The gallbladder is physiologically distended without evidence of stones, sludge, polyps, wall thickening or pericholecystic fluid. COMMON BILE DUCT: Normal in caliber measuring 0.20 cm in diameter. RIGHT KIDNEY: Normal. No hydronephrosis. No renal calculi or focal parenchymal lesions. The kidney measures 12.2 cm in maximum dimension. LEFT KIDNEY: Normal. No hydronephrosis. No renal calculi or focal parenchymal lesions. The kidney measures 14.4 cm in maximum dimension. SPLEEN: Spleen is enlarged. The spleen measures 15.0 cm in maximum dimension. FREE FLUID: None. US/US abdomen complete IMPRESSION: * Splenomegaly. * Diffuse increased echogenicity of liver parenchyma likely reflects hepatic steatosis.
== END 2023-08-15 08:04 | disposition home or self-care (01) ==
LOC: HO.US 08:03
PROVIDERS: PCP Family Medicine; Visit Provider Family Medicine
DX: R74.01 Elevation of levels of liver transaminase levels (principal)
CPT/HCPCS: 76700

== ENCOUNTER 2023-08-23 11:54 | Outpatient (AMB) | payer MEDICAID, SELFPAY ==
[2023-08-23 12:24] VITALS: BP 136/68; PULSE 86; RESP 16; TEMP 36.3; O2SAT 95; BMI 47.9
--- NOTE | 2023-08-23 12:24 | MHC.OFFVIS ---
Intake Vital Signs 08/23/23 12:24 Height 5 ft 5 in Weight 287 lb 11.252 oz BMI 47.9 BP 136/68 Blood Pressure Location Lt brachial Position Sitting Respiration 16 Pulse 86 Pulse Source Pulse Oximeter Temp 97.3 F Temp Source Tympanic Pulse Oximetry (%) 95 Oxygen Delivery Method Room Air Intake Visit Reasons: Polyarthralgia, PsO Web Press Operator Assistant Required: No Accompanied by: partner Allergies No Known Allergies Allergy (Unverified 08/23/23 12:26) Medication List - Last Reconciled 08/23/23 by Cece Ruiz RN atorvastatin 20 mg PO BEDTIME dulaglutide (Trulicity) mg subcut QWEEK gabapentin 1 cap PO BID losartan 100 mg PO DAILY metformin 1,000 mg PO BID prednisone 4 tablets per day x 7 days, 3 tablets per day x 7 days; 2 tablets per day x 7 days, 1 tablet per day x 7 days stop; sertraline 25 mg PO QAM sildenafil (Viagra) 50 mg PO DAILY PRN triamcinolone acetonide 0.1% appl topical ustekinumab (Stelara) mg subcut HPI HPI Comments History of Present Illness Details Dalton is a 47 y/o male patient with history of psoriasis, returns for follow-up evaluation of Polyarthralgia. Since last visit, patient is reporting that the joint pain has resolved. He has taken the prednisone completely and that could be the reason or he is saying his mind is now preoccupied with the challenges of his dying father and concerns for his mother. Either way hos joints are feeling better. He continues on Stelara. He reports that his PCP ordered an US of the Abdomen to check his liver because of the elevated liver enzymes I had called him about. Prior Visit: Dalton is a 47 y/o male patient with history of psoriasis, HTN and T2DM, sleep apnea, who presents for evaluation of joint pain, possibly psoriatic arthritis. The patient reports he has been suffering from increasing joint pain for many years, more in the last 2 years. He does endorse that his knees are [id number] per Ortho and the pain has lessened in both knees since he has lost weight. His main concern is stiffness and pain in upper back, his neck and shoulders. He also reports pain/tenderness at the dorsum of his feet and burning to the dorsum of his hands. He has had bilateral carpal tunnel surgery less than a year ago and reports residual tenderness to the incision sites. He currently is on Stelara for psoriasis. He has had 3 injections for Stelara and is due for the next injection within a month. He reports that Stelara has been very effective in clearing up and managing his psoriasis. He denies any side effects from Stelara. His psoriasis was always treated with topicals, therefore Stelara is the 1st immunomodulator he is prescribed. When asked, the patient denies erythematous, warm, swollen joints, plantar fasciitis, uveitis, sacroiliitis and SI joint pain, lower back pain, chronic tendinitis, and Achilles tendons pain. He denies morning stiffness lasting more than 10 minutes. He states when he gets up in the morning he does feel some stiffness but once he gets moving he is fine within 5-10 minutes. Patient denies Raynaud's phenomenon, butterfly rash on face or other rashes; denies photosensitivity - getting sick or developing a rash from being out in the sun; denies blood or froth in urine; patient denies SOB urelated to his deconditioned state, chest pain. Patient denies hx of Carditis or Pleuritis. Patient denies any history of DVT/PE. Denies fevers, excessive fatigue, unexplained weight-loss or weight-gain; Denies: thinning hair or hair loss. Denies: dry, itchy eyes, red burning eyes needing steroids to treat; dry mouth, mouth sores or ulcers; nose bleed; ringing in the ear Denies abdominal pain, blood or mucous in stool; nausea, vomiting and diarrhea , difficulty swallowing, heartburn. He has no personal or known family history of inflammatory or autoimmune processes, Crohn's or ulcerative colitis. [facility] Medical History (Updated 08/23/23 @ 12:53 [facility] Fatty liver disease, nonalcoholic Elevated liver enzymes Cataract Right cataract Neuropathy Depression Hyperlipidemia Arthritis HTN (hypertension) H/O non-insulin dependent diabetes mellitus Surgical History History of carpal tunnel surgery Family History Mother HTN (hypertension) Age related osteoporosis Cancer Dementia Father Alzheimer disease Social History Alcohol intake: never Patient Tobacco Use Status: Former Tobacco user Quit Date: 22 years ago Physical Exam Vital Signs: Last Vital Signs Temp 97.3 F 08/23/23 12:24 Pulse 86 08/23/23 12:24 Resp 16 08/23/23 12:24 BP 136/68 08/23/23 12:24 Pulse Ox 95 08/23/23 12:24 Oxygen Delivery Method Room Air 08/23/23 12:24 BMI result Body Mass Index 47.9 APPEARANCE: Patient in no acute distress EYES no redness, eyelids normal HEART:? Regular rhythm, S1-S2 heard, no murmurs, rubs or gallops. LUNG:? Clear to percussion and auscultation EXTREMITIES:? No edema, no calf tenderness, normal peripheral pulses. NEURO:? Oriented and alert x3.? No focal weakness.? Reflexes symmetric.? Gait normal. SKIN:? There are no skin lesions evident. No objective signs of Raynaud's phenomenon. JOINT EXAM: Cervical Spine:.? Full range of motion without pain; no tenderness. Thoracic Spine:.? No scoliosis.? No tenderness on palpation. Lumbar Spine:.? Alignment normal.? Full range of motion without pain, no tenderness. Chest Wall:.? No tenderness, swelling, increased warmth or erythema. Hands:.? Normal pain-free range of motion without tenderness, swelling, increased warmth or erythema. Able to make a full fist and has a good patient care secretary strength. No active synovitis otherwise Wrists:.? Normal pain-free range of motion without tenderness, swelling, increased warmth or erythema. Elbows:. Normal pain-free range of motion without tenderness, swelling, increased warmth or erythema. Shoulders:.?? Full range of motion without pain. No tenderness, weakness, swelling, increased warmth or erythema. Hips:.? Full range of motion without pain. Hip bursa:.? No tenderness. Knees:.?? Normal pain-free range of motion without tenderness, swelling, increased warmth or erythema.? There is no effusion or crepitation Ankles:.? Bilateral Normal range of motion with mild discomfort on the left ankle, with tenderness, trace swelling but no increased warmth or erythema. Ankle monitor in place Feet:.? Normal pain-free range of motion without swelling, increased warmth or erythema. Tenderness to bilateral dorsum Tender points:? No tenderness to digital palpation at the occiput, trapezius, second rib, lateral epicondyle, knees, greater trochanter and gluteal area bilaterally. ? Assessment & Plan Assessment & Plan (1) Polyarthralgia: Code(s): M25.50 - Pain in unspecified joint (2) Psoriasis: Code(s): L40.9 - Psoriasis, unspecified (3) Primary osteoarthritis involving multiple joints: Code(s): M15.9 - Polyosteoarthritis, unspecified (4) Elevated liver enzymes: Code(s): R74.8 - Abnormal levels of other serum enzymes (5) Fatty liver disease, nonalcoholic: Code(s): K76.0 - Fatty (change of) liver, not elsewhere classified Plan #Polyarthralgia: Zeferino, 46 year old male, is reporting today that his joint pain have resolved for the last month. He did have some heartburn side effects from the prednisone. I believe the prednisone has help to resolve and provide improvement to joint pain of neck and shoulder, dorsum of feet and hands and such that his back is not bothersome to him currently. He is satisfied right now and wants to hold off on further treatment. If we were to treat the patient for PsA, the options would be limited to a non-biologic DMARD such as Methotrexate, Leflunomide or sulfasalzine. However, a review of the last two sets of labs show a trending elevation in liver enzymes, which means a potential risk for liver toxicity on these medications. Elevated Liver Enzymes/Fatty Liver: PCP ordered an US which shows fatty liver but one also wonders if the atorvastatin is contributory to the elevated liver enzymes. Upon further discussion, the patient shares that he remembers that a different times in the past that there was mention of liver enzymes being elevated. As I shared with the patient, I do not have enough history to speak on the prior values. We will continue to monitor to see if this up trend continues or it is cyclical. It may be necessary to use an alternate to Atorvastatin. For now we will hold to start any medication and will reassess in 5 months, or patient will call earlier if the need arise. #Osteoarthritis: I do think he has osteoarthritis that may be complicated by obesity. Patient did share that his knees are [id number] per Ortho and his knee pains did improve after his weight loss (down from 350 to 287). I also think that the pain and tenderness to the dorsum of his bilateral feet is likely related to his weight. I encouraged patient to continue with his weight loss and to make sure to wear proper shoes that support the arches of his foot. In addition he does have diabetic neuropathy. I will order labs and x-rays for further evaluation. #Psoriasis:His skin is clear and there was no evidence of rash on PE. The patient should continue with the Stelara as prescribed and continue to follow with derm. I spent 20 minutes reviewing chart, evaluating the patient and documenting. F/u 5 mths Orders: Orders C Reactive Protein Today K76.0 - Fatty (change of) liver, not elsewhere classified, L40.9 - Psoriasis, unspecified, R74.8 - Abnormal levels of other serum enzymes Erythrocyte Sedimentation Rate Today K76.0 - Fatty (change of) liver, not elsewhere classified, L40.9 - Psoriasis, unspecified, R74.8 - Abnormal levels of other serum enzymes Alanine Aminotransferase Today K76.0 - Fatty (change of) liver, not elsewhere classified, L40.9 - Psoriasis, unspecified, R74.8 - Abnormal levels of other serum enzymes, Z79.899 - Other intermediate designer (current) drug therapy Aspartate Amino Transferase Today K76.0 - Fatty (change of) liver, not elsewhere classified, L40.9 - Psoriasis, unspecified, R74.8 - Abnormal levels of other serum enzymes, Z79.899 - Other intermediate designer (current) drug therapy Coding Level of Care Code Est Pt Level 3 (48448) Diagnoses Polyarthralgia M25.50 Psoriasis L40.9 Primary osteoarthritis involving multiple joints M15.9 Elevated liver enzymes R74.8 Fatty liver disease, nonalcoholic K76.0
== END 2023-08-23 12:55 | disposition home or self-care (01) ==
PROVIDERS: PCP Family Medicine; Visit Provider Nurse Practitioner Family
DX: M25.50 Pain in unspecified joint (principal); L40.9 Psoriasis, unspecified; M15.9 Polyosteoarthritis, unspecified; R74.8 Abnormal levels of other serum enzymes; K76.0 Fatty (change of) liver, not elsewhere classified
CPT/HCPCS: 99213

== ENCOUNTER → 2023-08-23 11:54 | Outpatient (BNVA) | payer MEDICAID, SELFPAY | PROVIDERS: PCP Family Medicine; Visit Provider Nurse Practitioner Family | DX: M25.50 Pain in unspecified joint (principal); M15.9 Polyosteoarthritis, unspecified; L40.9 Psoriasis, unspecified; R74.8 Abnormal levels of other serum enzymes; K76.0 Fatty (change of) liver, not elsewhere classified | CPT/HCPCS: 99212 ==

== ENCOUNTER 2023-10-10 13:38 | Outpatient (REF) | payer MEDICAID, SELFPAY ==
[2023-10-10 16:18] LABS: Appearance Urine Clear; Color Urine Yellow; Glucose Urine UA Negative (Negative); Leukocyte Esterase Urine Trace (Negative); Nitrite Urine Negative (Negative); PH 7.5 (5.0-9.0); UMIC TRIGGER UACC YES; Urine Blood Negative (Negative); Urine Ketones Negative (Negative); Urine Protein Negative (Neg-Trace)
[2023-10-10 16:28] LABS: Bacteria Urine Trace (None Seen); Hyaline Casts Urine 0-2 /LPF (0-2); RBC Urine 0-2 /HPF (0-2); UACC Culture Trigger YES
[2023-10-10 16:57] LABS: Alanine Aminotransferase 64 U/L (0-40); Aspartate Amino Transferase 36 U/L (5-37); C Reactive Protein 0.87 mg/dL (< or = 0.50)
[2023-10-10 17:55] LABS: Prostate Specific Antigen 0.98 ng/mL (<0.05-4.0)
[2023-10-10 18:10] LABS: Erythrocyte Sedimentation Rate 30 MM/HR (0-15)
[2023-10-11 05:49] LABS: CT PCR NOT DETECTED (Not Detect.); NG PCR NOT DETECTED (Not Detect.)
[2023-10-15 14:43] LABS: Testosterone, Total 386 ng/dL (250-1100)
== END 2023-10-10 13:39 | disposition home or self-care (01) ==
LOC: HO.HHCL 13:38
PROVIDERS: Nurse Practitioner Family; Visit Provider Family Medicine
DX: R39.12 Poor urinary stream (principal); N52.9 Male erectile dysfunction, unspecified; R30.0 Dysuria; L40.9 Psoriasis, unspecified; R74.8 Abnormal levels of other serum enzymes; K76.0 Fatty (change of) liver, not elsewhere classified; Z79.899 Other long term (current) drug therapy
CPT/HCPCS: 0353U; 36415; 81001; 84153; 84403; 84450; 84460; 85652; 86140; 87086

== ENCOUNTER 2024-09-24 10:45 | Outpatient (REF) | payer MEDICAID, SELFPAY ==
--- NOTE | ~2024-09-24 | XR_ITS ---
EXAMINATION: XR ELBOW, LEFT CLINICAL INFORMATION: PAIN COMPARISON: None available. TECHNIQUE: AP, lateral, and oblique views of the left elbow. FINDINGS: No acute cortical disruption or malalignment. Small marginal osteophyte formation along the ulnar aspect of the coronoid process of the ulna. No joint effusion. No lytic or blastic lesions. No subcutaneous emphysema. No metallic or radiopaque foreign body. XR/XR elbow LT min 3V IMPRESSION: Degenerative changes, coronoid processes of the ulna. Electronically signed by: Blake Pacheco MD 09/24/2024 12:30 PM [facility]
[2024-09-24 12:28] LABS: Creatinine Urine 216.86 mg/dL; Microalbum/Creatinine Ratio Ur 20.2 ug/mg cr (<30)
[2024-09-24 12:48] LABS: Alanine Aminotransferase 106 U/L (0-40); Albumin Level 4.1 g/dL (3.5-5.0); Alkaline Phosphatase 110 U/L (39-117); Anion Gap 12 (12-20); Aspartate Amino Transferase 52 U/L (5-37); Bilirubin Direct 0.1 mg/dL (0.0-0.5); Bilirubin Total 0.3 mg/dL (0.0-1.0); Blood Urea Nitrogen 14 mg/dL (9-16); Calcium 9.7 mg/dL (8.4-10.2); Carbon Dioxide 28 mmol/L (22-29); Chloride 101 mmol/L (96-108); Cholesterol 95 mg/dL (<200); Estimated Glomerular Filt Rate > 60; Glucose Fasting 253 mg/dL (60-99); HDL Cholesterol 31 mg/dL (>40); LDL Cholesterol Calculated 32 mg/dL (<100); Potassium 4.1 mmol/L (3.3-5.1); Sodium 137 mmol/L (135-145); Total Protein 7.8 g/dL (6.5-8.0); Triglycerides 160 mg/dL (<150)
--- OUTSIDE RECORDS SUMMARY | 2024-09-24 12:54 | XMS_ITS | Encounter Summary ---
Author Organization [employer] Address [address] [place] [address] Care Team Providers Care Paper Core Machine Operator Name Role Phone Maria A Chavez MD Primary Care Provider [phone] Florian Rojas PharmD Unavailable [phone] Reason for Visit * Reason Comments Med Refill Encounter Details Date Type Department Care Team ([facility] st Contact Info) Description 09/24/2024 Refill [facility] [address] [place], [place] [phone] Florian Rojas, PharmD [address] [place] [address] Type 2 diabetes mellitus with hyperglycemia, without long-term current use of insulin ([facility]) Social History Tobacco Use Types Packs/Day Years Used Date Smoking Tobacco: Former Cigarettes 2 1997 Passive Smoke Exposure: Never Smokeless Tobacco: Never Housing Stability Answer Date Recorded What is your housing situation today? I have realsarah jack 05/24/[address] you li ve. Do you have problems with any of the following? None of the above 05/24/2023 Food Insecurity Answer Date Recorded Within the past 12 months, y ou worried that your food would run out before you got money to buy more: Never True 05/24/2023 Within the past 12 months,th e food you bought just didn't last and you didn't have enough money to get more: Never True Transportation Answer Date Recorded In the past 12 months, has l ack of transportation kept you from medical appts, meetings, work or from getting things needed for daily living? No 05/24/2023 Utilities Answer Date Recorded In the past 12 months, has t he electric, gas, oil or water company threatened to shut off services in your home? No 05/24/2023 Sex and Gender Information Value Date Recorded Sex Assigned at Male 05/30/2022 10:31 AM EDT Legal Sex Male 10:31 AM EDT Gender Identity Male 05/30/2022 10:31 AM EDT Sexual Orientation Straight 05/30/2022 10 :31 AM EDT documented as of this encounter Plan of Treatment Upcoming Encounters Date Type Department Care Team (Late st Contact Info) Description 09/25/2024 2:00 PM EST Telemedicine [facility] MEDICINE [address] [place] [address] Florian Rojas PharmD [address] [place] [address] documented as of this encounter Goals Goal Patient Goal Type Associated Problems Recent Progress Patient-Stated? Author Blood Pressure < 140/90 Blood Pressure 140/80(2024 10:20 AM EST) No Florian Rojas PharmD Hemoglobin A1c < 7 Result Component 12.6(09/24/19 10:05 AM EST) No Florian Rojas PharmD documented as of this encounter Visit Diagnoses Diagnosis Type 2 diabetes mellitus with hyperglycemia, without long-term current use of insulin ([facility]) documented in this encounter Care Teams Paper Core Machine Operator Relationship Specialty Start Date End Date Maria A Chavez MD [address] [place] [id number] PCP - General Family Medicine 06/20/22 Florian Rojas, RayaD [address] [place] [phone] Pharmacist Internal Medicine 05/03/23 documented as of this encounter
--- OUTSIDE RECORDS SUMMARY | 2024-09-24 12:54 | XMS_ITS | Encounter Summary ---
Author Organization [employer] Address [address] [facility] [address] [place] [address] Care Team Providers Care Wood Engraver Name Role Phone Maria A Chavez MD Primary Care Provider [phone] Florian Rojas PharmD Unavailable [phone] Reason for Visit * Reason Comments Med Refill Encounter Details Date Type Department Care Team ([facility] st Contact Info) Description 06/28/2024 Refill [facility] [address] [place], [place] [phone] Maria A Chavez MD [address] [place], [place] [phone] Neuropathy Social History Tobacco Use Types Packs/Day Years Used Date Smoking Tobacco: Former Cigarettes 2 - 1997 Passive Smoke Exposure: Never Smokeless Tobacco: Never Housing Stability Answer Date Recorded What is your housing situation today? I have rela jack 05/24/[address] you [...] Info) Description 09/25/2024 2:00 PM EST Telemedicine [facility] [address] [place] [address] Florian Rojas PharmD [address] [place] [address] documented as of this encounter Goals Goal Patient Goal Type Associated Problems Recent Progress Patient-Stated? Author Blood Pressure < 140/90 Blood Pressure 140/80(2024 10:20 AM EST) No Florian Rojas PharmD Hemoglobin A1c < 7 Result Component 12.6(09/24/19 10:05 AM EST) No Florian Rojas PharmD documented as of this encounter Visit Diagnoses Diagnosis Neuropathy Mononeuritis of unspecified site documented in this encounter Care Teams Wood Engraver Relationship Specialty Start Date End Date Maria A Chavez MD [address] [place] [id number] PCP - General Family Medicine 06/20/22 Florian Rojas PharmD [address] [place] [id number] Pharmacist Internal Medicine 05/03/23 documented as of this encounter
--- OUTSIDE RECORDS SUMMARY | 2024-09-24 12:54 | XMS_ITS | Encounter Summary ---
Author Organization [employer] Address [address] [place] [address] Care Team Providers Care Digital Asset Specialist Name Role Phone Mari aA Chavez MD Primary Care Provider [phone] Florian Rojas PharmD Unavailable [phone] Reason for Referral * Consultation (Routine) - Pending Review Specialty Diagnoses / Procedures Referred By Prudence rainey Referred To Contact Pharmacy Diagnoses Type 2 diabetes mellitus with hyperglycemia, without long-term current use of insulin (CMS/HCC) Hypertension, unspecified type Maria A Chavez MD [address] [place] [address] Phone: tel: fax: Referral ID Status Reason Start Date Expiration Date Visits Requested Visits Authorized [id number] Pending Review Consult and Treat 4 06/11/2025 6 6 Encounter Details Date Type Department Care Team (Late st Contact Info) Description 06/11/2024 Orders Only [facility] MEDICINE [address] [place], [place] [phone] Maria A Chavez MD [address] [place], [place] [phone] Type 2 diabetes mellitus with hyperglycemia, without long-term current use of insulin (CMS/HCC) (Primary Dx); Hypertension, unspecified type Social History Tobacco Use Types Packs/Day Years Used Date Smoking Tobacco: Former Cigarettes 2 10 988 - 1997 Passive Smoke Exposure: Never Smokeless Tobacco: Never Housing Stability Answer Date Recorded What is your housing situation today? I have real jack 05/24/[address] you [...] Info) Description 09/25/2024 2:00 PM EST Telemedicine [facility] MEDICINE [address] [place] [address] Florian Rojas PharmD [address] [place] [address] Scheduled Referrals Name Type Priority Associated Diagnoses Orde r Schedule Referral to Pharmacy CDTM Outpatient Referral Routine Type 2 diabetes mellitus with hyperglycemia, without long-term current use of insulin ([facility]) Hypertension, unspecified type Ordered: 06/11/2024 documented as of this encounter Goals Goal Patient Goal Type Associated Problems Recent Progress Patient-Stated? Author Blood Pressure < 140/90 Blood Pressure 140/80(2024 10:20 AM EST) No Florian Rojas, Esa Hemoglobin A1c < 7 Result Component 12.6(09/24/19 10:05 AM EST) No Florian Rojas PharmD documented as of this encounter Visit Diagnoses Diagnosis Type 2 diabetes mellitus with hyperglycemia, without long-term current use of insulin ([facility])- Primary Hypertension, unspecified type documented in this encounter Care Teams Digital Asset Specialist Relationship Specialty Start Date End Date Maria A Chavez MD [address] [place], [place] [phone] PCP - General Family Medicine 06/20/22 Florian Rojas, RayaD [address] [place] [address] Pharmacist Internal Medicine 05/03/23 documented as of this encounter
--- OUTSIDE RECORDS SUMMARY | 2024-09-24 12:54 | XMS_ITS | Encounter Summary ---
Author Organization [employer] Address 75 [facility] [address] [place] [address] Care Team Providers Care Resident Service Coordinator Name Role Phone Maria A Chavez MD Primary Care Provider [phone] Florian Rojas PharmD Unavailable [phone] Encounter Details Date Type Department Care Team (Latest Contact Info) Description 09/24/2024 10:30 AM EST Office Visit [facility] [address] [place], [place] [phone] Maria A Chavez MD [address] [place], [place] [phone] AUDELIA (obstructive sleep apnea) (Primary Dx); Hypertension, unspecified type; Type 2 diabetes mellitus with hyperglycemia, without long-term current use of insulin (CMS/HCC); Dyslipidemia; At increased risk for cardiovascular disease; Psoriasis; Moderate major depression, single episode (CMS/HCC); Elevated alanine aminotransferase (ALT) level; Left elbow pain Social History Tobacco Use Types Packs/Day Years [...] AM EDT documented as of this encounter Last Filed Vital Signs Vital Sign Reading Time Taken Comments Blood Pressure 140/80 09/24/2024 10:20 AM EST Pulse 74 09/24/2024 10:03 AM EST Temperature 36.3 ??C (97.3 ??F) 09/24/2024 10:[address] Respiratory Rate 15 09/24/2024 10:03 AM EST Oxygen Saturation 99% 09/24/2024 10:03 AM EST Inhaled Oxygen Concentration - - Weight 128 kg (282 lb 12.8 oz) 09/24/2024 10:03 AM EST Height 165.1 cm (5' 5 ) 09/24/2024 10:03 AM EST Body Mass Index 47.06 09/24/2024 10:03 AM EST documented in this encounter Miscellaneous Notes * Assessment & Plan Note - Anna Maharaj MA - 09/24/2024 8:56 AM ESTAssociated Problem(s): Elevated alanine aminotransferase (ALT) level - negative hepatitis profile - will recommend hepatitis A and B immunizations - evaluate with US - avoid hepatotoxic substances * Assessment & Plan Note - Anna Maharaj MA - 09/24/2024 8:56 AM ESTAssociated Problem(s): At increased risk for cardiovascular disease - last lipid profile: 06/14/23 total cholesterol 103; triglyceride 113; LDL 48; HDL 33 - current medication: Atorvastatin 20 mg at bedtime - continue current medication and lifestyle modifications * Assessment & Plan Note - Anna Maharaj MA - 09/24/2024 8:56 AM ESTAssociated Problem(s): Dyslipidemia - last lipid profile: 06/14/23 total cholesterol 103; triglyceride 113; LDL 48; HDL 33 - current medication: Atorvastatin 20 mg at bedtime - continue current medication and lifestyle modifications * Assessment & Plan Note - Anna Maharaj MA - 09/24/2024 8:56 AM ESTAssociated Problem(s): Psoriasis Following with Catalyst Operator Chief -Continue Triamcinolone 0.1% cream, 80g compounded with 1lb of CeraVe after showers and before bedtime. -Continue ustekunimab injection as prescribed -Evaluated by fitness teacher for possible arthritis. Unlikely to have psoriatic arthritis. ElevatedESR and CRP likely due to obesity. * Assessment & Plan Note - Anna Maharaj MA - 09/24/2024 8:56 AM ESTAssociated Problem(s): Moderate major depression, single episode (CMS/HCC) -[facility] provider: Glo, therapist Diana Balderrama -pt is interested in trying a new antidepressant -previously tried venlafaxine, which was discontinued due to ineffectiveness -continue sertraline 25 mg daily. -continue exercising at gym, which seems to help with his symptoms -able to contract his safety today * Assessment & Plan Note - Anna Maharaj MA - 09/24/2024 8:55 AM ESTAssociated Problem(s): Type 2 diabetes mellitus (CMS/HCC) - A1c 12.6% on 09/24/24, 9.2% on 06/14/23, no significant improvement from 9.5% on 6/21/23 despite increasing dulaglutide - questionable medication adherence and dietary modification (Hx self-adjustment of medications) -Continue Metformin 1000 mg BID -Continue dulaglutide to 3.0 mg weekly -He will benefit from having CGM Last Eye Exam: 07/19/23 Eye and Lasik. Mild non-proliferative diabetic retinopathy bilateral. Last Foot Exam: 10/24/22 Last Microalbumin Test: 06/14/23 UACR 47 Last Lipid profile: 06/14/23 total cholesterol 103; triglyceride 113; LDL 48; HDL 33 Follow up in 3 mo or sooner prn * Assessment & Plan Note - Anna Maharaj MA - 09/24/2024 8:55 AM ESTAssociated Problem(s): HTN (hypertension) Goal BP <140/90 per JNC-8, < 130/80 per ACC/AHA guideline -BP not at goal today (consecutively) -Co-managed with our pharmacist, Florian Rojas [facility], PharmD, through [facility] -Continue working on lifestyle modifications -continue monitoring BP at home (send a new script) -continue Losartan 100mg daily -continue chlorthalidone 12.5 mg daily -continue working on lifestyle modifications - follow up in 3 mo or sooner prn * Assessment & Plan Note - Anna Maharaj MA - 09/24/2024 8:55 AM ESTAssociated Problem(s): AUDELIA (obstructive sleep apnea) Following with [facility] -Sleep Study on 10/17/22 confirmed AUDELIA Patient has difficulty using CPAP due to discomfort. Patient will consult with Sleep Medicine Clinic Provider. documented in this encounter Plan of Treatment Upcoming Encounters Date Type Department Care Team (Late st Contact Info) Description 09/25/2024 2:00 PM EST Telemedicine [facility] [address] [place] [address] Florian Rojas, Esa [address] [place] [address] Scheduled Orders Name Type Priority Associated Diagnoses Orde r Schedule XR Elbow 3+ Views Left Imaging Routine Left elbow pain Expected: 09/24/2024, Expires: 09/24/2025 documented as of this encounter Goals Goal Patient Goal Type Associated Problems Recent Progress Patient-Stated? Author Blood Pressure < 140/90 Blood Pressure 140/80(2024 10:20 AM EST) No Florian Rojas, Esa Hemoglobin A1c < 7 Result Component 12.6(09/24/19 10:05 AM EST) No Florian Rojas PharmD documented as of this encounter Procedures Procedure Name Priority Date/Time Associated Diagnosis Comments HEPATIC FUNCTION PANEL Routine 09/24/2024 10:47 AM EST Dyslipidemia POCT GLYCOSYLATED HEMOGLOBIN (HGB A1C) Routine 09/24/2024 10:05 AM EST Type 2 diabetes mellitus with hyperglycemia, without long-term current use of insulin ([facility]) POCT GLUCOSE Routine 09/24/2024 10:04 AM EST Type 2 diabetes mellitus with hyperglycemia, without long-term current use of insulin ([facility]) documented in this encounter Results * (ABNORMAL) Hepatic Function Panel (09/24/2024 10:47 AM EST) Bilirubin, Total 0.3 0.0 - 1.0 mg/dL [facility] Bilirubin, Direct 0.1 0.0 - 0.5 mg/dL [facility] Aspartate Amino Transferase 52(H) 5 - 37 U/L [facility] Alanine Aminotransferase 106(H) 0 - 40 U/L [facility] Total Protein 7.8 6.5 - 8.0 g/dL [facility] Albumin Level 4.1 3.5 - 5.0 g/dL [facility] Alkaline Phosphatase 110 39 - 117 U/L [facility] Blood Venous blood specimen / Unknown 09/24/2024 10:47 AM EST 09/24/2024 11:35 AM EST Maria A Chavez MD LAB BLOOD ORDERABLES Final Resul t [facility] [address] [place] [address] [phone] * (ABNORMAL) POCT glycosylated hemoglobin (Hgb A1c) (09/24/2024 10:05 AM EST) Hemoglobin A1C 12.6(A) 4.0 - 6.0 % QC Media Lot # [id number] Lot# Expiration Date Blood Capillary blood specimen / Unknown 09/24/2024 10:05 AM EST Maria A Chavez MD POINT OF CARE TEST ENTER/EDIT OR DERABLES Final Result * (ABNORMAL) POCT glucose manually resulted (09/24/2024 10:04 AM EST) Glucose Blood, POC 308(A) 60 - 200 mg/dL QC Media Lot # [id number] Lot# Expiration Date 025 Blood Capillary blood specimen / Unknown 09/24/2024 10:04 AM EST Maria A Chavez MD POINT OF CARE TEST ENTER/EDIT OR DERABLES Final Result documented in this encounter Visit Diagnoses Diagnosis AUDELIA (obstructive sleep apnea)- Primary Obstructive sleep apnea (adult) (pediatric) Hypertension, unspecified type Type 2 diabetes mellitus with hyperglycemia, without long-term current use of insulin (CMS/[facility]) Dyslipidemia Other and unspecified hyperlipidemia At increased risk for cardiovascular disease Psoriasis Other psoriasis Moderate major depression, single episode (CMS/HCC) Major depressive disorder, single episode, moderate Elevated alanine aminotransferase (ALT) level Left elbow pain Pain in joint, upper arm documented in this encounter Care Teams Resident Service Coordinator Relationship Specialty Start Date End Date Maria A Chavez MD [address] [place] [address] PCP - General Family Medicine 06/20/22 Florian Rojas, PharmD [address] [place] [address] [place] [address] Pharmacist Internal Medicine 05/03/23 documented as of this encounter
--- OUTSIDE RECORDS SUMMARY | 2024-09-24 12:54 | XMS_ITS | Encounter Summary ---
Author Organization [employer] Address [address] [place] [address] Care Team Providers Care Dividing Machine Operator Name Role Phone Maria A Chavez MD Primary Care Provider [phone] Florian Rojas PharmD Unavailable [phone] Reason for Visit * Reason Comments Med Refill Encounter Details Date Type Department Care Team ([facility] Contact Info) Description 07/26/2024 Refill [facility] [address] [place], [place] [phone] Maria A Chavez MD [address] [place] [address] Social History Tobacco Use Types Packs/Day Years [...] Info) Description 09/25/2024 2:00 PM EST Telemedicine [facility] [address] [place] [address] Florian Rojsa PharmD [address] [place] [address] documented as of this encounter Goals Goal Patient Goal Type Associated Problems Recent Progress Patient-Stated? Author Blood Pressure < 140/90 Blood Pressure 140/80(2024 10:20 AM EST) No Florian Rojas PharmD Hemoglobin A1c < 7 Result Component 12.6(09/24/19 10:05 AM EST) No Florian Rojas PharmD documented as of this encounter Visit Diagnoses Not on filedocumented in this encounter Care Teams Dividing Machine Operator Relationship Specialty Start Date End Date Maria A Chavez MD [address] [place] [address] PCP - General Family Medicine 06/20/22 Florian Rojas PharmD [address] [place] [phone] Pharmacist Internal Medicine 05/03/23 documented as of this encounter
--- OUTSIDE RECORDS SUMMARY | 2024-09-24 12:54 | XMS_ITS | Encounter Summary ---
Author Organization [employer] Address [address] [place] [address] Care Team Providers Care Human Resources District Manager Name Role Phone Maria A Chavez MD Primary Care Provider [phone] Florian Rojas PharmD Unavailable [phone] Reason for Visit * Reason Comments Med Refill Encounter Details Date Type Department Care Team ([facility] Contact Info) Description 07/25/2024 Refill [facility] [address] [place], [place] [phone] Maria A Chavez MD [address] [place] [address] Social History Tobacco Use Types Packs/Day Years [...] Info) Description 09/25/2024 2:00 PM EST Telemedicine [facility] [address] [place] [address] Florian Rojas PharmD [address] [place] [address] documented as of this encounter Goals Goal Patient Goal Type Associated Problems Recent Progress Patient-Stated? Author Blood Pressure < 140/90 Blood Pressure 140/80(2024 10:20 AM EST) No Florian Rojas PharmD Hemoglobin A1c < 7 Result Component 12.6(09/24/19 10:05 AM EST) No Florian Rojas PharmD documented as of this encounter Visit Diagnoses Not on filedocumented in this encounter Care Teams Human Resources District Manager Relationship Specialty Start Date End Date Maria A Chavez MD [address] [place] [phone] PCP - General Family Medicine 06/20/22 Florian Rojas PharmD [address] [place] [phone] Pharmacist Internal Medicine 05/03/23 documented as of this encounter
--- OUTSIDE RECORDS SUMMARY | 2024-09-24 12:55 | XMS_ITS | Encounter Summary ---
Author Organization [employer] Address [address] [place] [address] Care Team Providers Care Administrative Underwriter Name Role Phone Maria A Chavez MD Primary Care Provider [phone] Florian Rojas PharmD Unavailable [phone] Reason for Visit * Reason Comments Med Refill Encounter Details Date Type Department Care Team ([facility] Contact Info) Description 07/18/2023 Refill [facility] [address] [place], [place] [phone] Name, MD Franck [address] [place] [address] Essential hypertension Social History Tobacco Use Types Packs/Day Years [...] Info) Description 09/25/2024 2:00 PM EST Telemedicine [facility] [address] [place] [address] Florian Rojas PharmD [address] [place] [address] documented as of this encounter Goals Goal Patient Goal Type Associated Problems Recent Progress Patient-Stated? Author Blood Pressure < 140/90 Blood Pressure 140/80(2024 10:20 AM EST) No Florian Rojas PharmD Hemoglobin A1c < 7 Result Component 12.6(09/24/19 10:05 AM EST) No Florian Rojas PharmD documented as of this encounter Visit Diagnoses Diagnosis Essential hypertension Unspecified essential hypertension documented in this encounter Care Teams Administrative Underwriter Relationship Specialty Start Date End Date Maria A Chavez MD [address] [place] [address] PCP - General Family Medicine 06/20/22 Florian Rojas PharmD [address] [place] [address] Pharmacist Internal Medicine 05/03/23 documented as of this encounter
--- OUTSIDE RECORDS SUMMARY | 2024-09-24 12:55 | XMS_ITS | Encounter Summary ---
Author Organization [employer] Address [address] [place] [address] Care Team Providers Care Knuckle Bender Name Role Phone Maria A Chavez MD Primary Care Provider [phone] Florian Rojas PharmD Unavailable [phone] Reason for Visit * Reason Onset Date Comments Chart Prep 09/18/2024 Encounter Details Date Type Department Care Team ([facility] st Contact Info) Description 09/18/2024 Telephone [facility] [address] [place], [place] [phone] Maria A Chavez MD [address] [place], [place] [phone] Chart Prep Social History Tobacco Use Types Packs/Day Years [...] AM EDT documented as of this encounter Miscellaneous Notes * Telephone Encounter - Lynn Franklin MA - 09/18/2024 11:53 AM EST Chart Prep Labs: done Images: not applicable Vaccines due: Covid Due, Flu Due, and Shingles in pharmacy Due Referrals: Not Applicable Screenings: Eye Exam and Foot Exam Overdue care gaps: A1C, Glucose, Sbirt, SDOH, PHQ-9, and Oral Health documented in this encounter Plan of Treatment Upcoming Encounters Date Type Department Care Team (Late st Contact Info) Description 09/25/2024 2:00 PM EST Telemedicine [facility] [address] [place] [address] Florian Rojas PharmD [address] [place] [address] documented as of this encounter Goals Goal Patient Goal Type Associated Problems Recent Progress Patient-Stated? Author Blood Pressure < 140/90 Blood Pressure 140/80(2024 10:20 AM EST) No Florian Rojas PharmD Hemoglobin A1c < 7 Result Component 12.6(09/24/19 10:05 AM EST) No Florian Rojas PharmD documented as of this encounter Visit Diagnoses Not on filedocumented in this encounter Care Teams Knuckle Bender Relationship Specialty Start Date End Date Maria A Chavez MD [address] [place] [address] PCP - General Family Medicine 06/20/22 Florian Rojas PharmD [address] [place] [phone] Pharmacist Internal Medicine 05/03/23 documented as of this encounter
--- OUTSIDE RECORDS SUMMARY | 2024-09-24 12:55 | XMS_ITS | Encounter Summary ---
Author Organization [employer] Address 75 [facility] 7 [place] [address] Care Team Providers Care Front Desk Attendant Name Role Phone Maria A Chavez MD Primary Care Provider [phone] Florian Rojas PharmD Unavailable Encounter Details Date Type Department Care Team (Latest Contact Info) Description 09/24/2024 Travel Social History Tobacco Use Types Packs/Day Years Used Date Smoking Tobacco: Former Cigarettes 2 10 988 - 1997 Passive Smoke Exposure: Never Smokeless Tobacco: Never Housing Stability Answer Date Recorded What is your housing situation today? I have real marcie 05/24/[address] you li [...] 09/25/2024 2:00 PM EST Telemedicine [facility] [address] [place] [address] Florian Rojas PharmD [address] [place] [address] documented as of this encounter Goals Goal Patient Goal Type Associated Problems Recent Progress Patient-Stated? Author Blood Pressure < 140/90 Blood Pressure 140/80(2024 10:20 AM EST) No Florian Rojas PharmD Hemoglobin A1c < 7 Result Component 12.6(09/24/19 10:05 AM EST) No Florian Rojas PharmD documented as of this encounter Visit Diagnoses Not on filedocumented in this encounter Care Teams Front Desk Attendant Relationship Specialty Start Date End Date Maria A Chavez MD [address] [place] [address] PCP - General Family Medicine 06/20/22 Florian Rojas PharmD [address] [place] [phone] Pharmacist Internal Medicine 05/03/23 documented as of this encounter
--- OUTSIDE RECORDS SUMMARY | 2024-09-24 12:55 | XMS_ITS | Encounter Summary ---
Author Organization [employer] Address [address] [place] [address] Care Team Providers Care Diesel Fitter Mechanic Name Role Phone Maria A Chavez MD Primary Care Provider Florian Rojas PharmD Unavailable [phone] Reason for Visit * Reason Comments Med Refill Encounter Details Date Type Department Care Team ([facility] Contact Info) Description 07/18/2023 Refill [facility] [address] [place], [place] [phone] Libby Rodriguez MD [address] [place] [address] Pruritus Social History Tobacco Use Types Packs/Day Years [...] Info) Description 09/25/2024 2:00 PM EST Telemedicine [facility] [address] [place] [address] Florian Rojas PharmD [address] [place] [address] documented as of this encounter Goals Goal Patient Goal Type Associated Problems Recent Progress Patient-Stated? Author Blood Pressure < 140/90 Blood Pressure 140/80(2024 10:20 AM EST) No Florian Rojas PharmD Hemoglobin A1c < 7 Result Component 12.6(09/24/19 10:05 AM EST) No Florian Rojas PharmD documented as of this encounter Visit Diagnoses Diagnosis Pruritus Unspecified pruritic disorder documented in this encounter Care Teams Diesel Fitter Mechanic Relationship Specialty Start Date End Date Maria A Chavez MD [address] [place] [phone] PCP - General Family Medicine 06/20/22 Florian Rojas PharmD [address] [place] [phone] Pharmacist Internal Medicine 05/03/23 documented as of this encounter
--- OUTSIDE RECORDS SUMMARY | 2024-09-24 12:55 | XMS_ITS | Encounter Summary ---
Author Organization [employer] Address [address] [place] [address] Care Team Providers Care Manuscript Editor Name Role Phone Maria A Chavez MD Primary Care Provider [phone] Florian Rojas PharmD Unavailable [phone] Reason for Visit * Reason Comments Med Refill Encounter Details Date Type Department Care Team ([facility] st Contact Info) Description 09/13/2023 Refill [facility] [address] [place], [place] [phone] Maria A Chavez MD [address] [place] [address] Social History Tobacco Use Types Packs/Day Years [...] Info) Description 09/25/2024 2:00 PM EST Telemedicine [facility] [address] [place] [address] Florian Rojas PharmD [address] [place] [address] documented as of this encounter Goals Goal Patient Goal Type Associated Problems Recent Progress Patient-Stated? Author Blood Pressure < 140/90 Blood Pressure 140/80(2024 10:20 AM EST) No Florian Rojas PharmD Hemoglobin A1c < 7 Result Component 12.6(09/24/19 10:05 AM EST) No Florian Rojas PharmD documented as of this encounter Visit Diagnoses Not on filedocumented in this encounter Care Teams Manuscript Editor Relationship Specialty Start Date End Date Maria A Chavez MD [address] [place] [address] PCP - General Family Medicine 06/20/22 Florian Rojas PharmD [address] [place] [address] Pharmacist Internal Medicine 05/03/23 documented as of this encounter
--- OUTSIDE RECORDS SUMMARY | 2024-09-24 12:55 | XMS_ITS | Encounter Summary ---
Author Organization [employer] [facility] Address [address] [place] [address] Care Team Providers Care Counter Stitcher Name Role Phone Maria A Chavez MD Primary Care Provider [phone] Florian Rojas PharmD Unavailable [phone] Encounter Details Date Type Department Care Team (Late st Contact Info) Description 11/05/[address] [facility] [address] [place] [address] [phone] Maria A Chavez MD [address] [place] [address] [phone] Transaminitis (Primary Dx) Social History Tobacco Use Types Packs/Day Years Used Date Smoking Tobacco: Never Passive Smoke Exposure: Never Smokeless Tobacco: Never Sex and Gender Information Value Date Recorded Sex Assigned at Male 05/30/2022 10:31 AM EDT Legal Sex Male 10:31 AM EDT Gender Identity Male 05/30/2022 10:31 AM EDT Sexual Orientation Straight 05/30/2022 10 :31 AM EDT COVID-19 Exposure Response Date Recorded In the last 10 days, have yo u been in contact with someone who was confirmed or suspected to have Coronavirus/COVID-19? No / Unsure 10/24/2022 2:18 PM EDT documented as of this encounter Plan of Treatment Upcoming Encounters Date Type Department Care Team (Late st Contact Info) Description 09/25/2024 2:[address] [facility] [address] [place] [address] [phone] Florian Rojas, PharmD [address] [place], [place] [phone] documented as of this encounter Procedures Procedure Name Priority Date/Time Associated Diagnosis Comments HEPATITIS B SURFACE AB IMMUNITY, QN Routine 11/09/2022 8:14 AM EDT Transaminitis HEPATITIS C AB W/REFL TO HCV RNA, QN, PCR Routine 11/09/2022 8:14 AM EDT Transaminitis HEPATITIS A ANTIBODY, TOTAL Routine 11/09/2022 8:14 AM EDT Transaminitis HEPATITIS B CORE AB TOTAL Routine 11/09/2022 8:14 AM EDT Transaminitis HEPATITIS B SURFACE ANTIGEN W/REFL CONFIRM Routine 11/09/2022 8:14 AM EDT Transaminitis documented in this encounter Results * Hepatitis C Antibody with Reflex to HCV, RNA, Quantitative, Real-Time PCR (11/09/2022 8:14 AM EDT) Hepatitis C Antibody NON-REACT ALINA NON-REACT ALINA [employer] Index 0.10 <1.00 [employer] Comment: HCV antibody was non-reactive. There is no laboratory evidence of HCV infection. In most cases, no further action is required. However, if recent HCV exposure is suspected, a test for HCV RNA (test code 06158) is suggested. For additional information please refer to http://education.[employer]/faq/JMP72p0 (This link is being provided for informational/ educational purposes only.) Blood Venous blood specimen / Unknown 11/09/2022 8:14 AM EDT 11/09/2022 8:15 AM EDT Narrative [facility] - 11/10/2022 1:19 AM EDT FASTING:YES FASTING: YES us Maria A Chavez MD LAB BLOOD ORDERABLES Final Resul t [facility] [address] [place] [address], [place] [phone] [employer] by [employer] [facility] [address] [place] [phone] * Hepatitis A Antibody IgG (11/09/2022 8:14 AM EDT) Pathologist [facility] [place] Hepatitis A Antibody Total NON-REACT ALINA NON-REACT ALINA [employer] [place] [employer] Comment: For additional information, please refer to http://[employer]/faq/LUC561 (This link is being provided for informational/ educational purposes only.) Blood Venous blood specimen / Unknown 11/09/2022 8:14 AM EDT 11/09/2022 8:15 AM EDT Narrative [facility] - 11/10/2022 1:19 AM EDT FASTING:YES FASTING: YES Maria A Chavze MD LAB BLOOD ORDERABLES Final Resul t Performing Organization Address [facility] Co de Phone Number [address] [phone] [employer] [place] [employer] [address] [place] [phone] * Hepatitis B Core Antibody, Total (11/09/2022 8:14 AM EDT) Pathologist [facility] [place] Hepatitis B Core Antibody Total NON-REACT ALINA NON-REACT ALINA [employer] [place] [employer] Blood Venous blood specimen / Unknown 11/09/2022 8:14 AM EDT 11/09/2022 8:15 AM EDT Narrative [facility] - 11/10/2022 1:19 AM EDT FASTING:YES FASTING: YES Maria A Chavez MD LAB BLOOD ORDERABLES Final Resul t Performing Organization Address [facility] Co de Phone Number [address] [phone] [employer] [place] [employer] [address] [place] [phone] * Hepatitis B Surface Antigen with Reflex Confirmation (11/09/2022 8:14 AM EDT) Pathologist [facility] [place] Hepatitis B Surface Ag NON-REACT ALINA NON-REACT ALINA [employer] [place] [employer] Blood Venous blood specimen / Unknown 11/09/2022 8:14 AM EDT 11/09/2022 8:15 AM EDT Narrative [facility] - 11/10/2022 1:19 AM EDT FASTING:YES FASTING: YES Maria A Chavez MD LAB BLOOD ORDERABLES Final Resul t Performing Organization Address [facility] de Phone Number [facility] [address] [place] [phone] [employer] [place] [employer] [address] [place] [phone] * (ABNORMAL) Hepatitis B Surface Antibody Immunity, Quantitative (11/09/2022 8:14 AM EDT) Hepatitis B Surface Antibody Immunity, QN <5(L) > OR = 10 mIU/mL [employer] [place] [employer] Comment: PATIENT DOES NOT HAVE IMMUNITY TO HEPATITIS B VIRUS. For additional information, please refer to http://education.[employer]/faq/FIK746 (This link is being provided for informational/ educational purposes only). 11/09/2022 8:14 AM EDT 11/09/2022 8:15 AM EDT Narrative [facility] - 11/10/2022 1:19 AM EDT FASTING:YES FASTING: YES Maria A Chavez MD LAB BLOOD ORDERABLES Final Resul t Performing Organization Address [facility] de Phone Number [address] [phone] [employer] [place] [employer] [address] [place] [phone] documented in this encounter Visit Diagnoses Diagnosis Transaminitis- Primary Nonspecific elevation of levels of transaminase or lactic acid dehydrogenase (LDH) documented in this encounter Care Teams Counter Stitcher Relationship Specialty Start Date End Date Maria A Chavez MD [address] [place] [phone] PCP - General Family Medicine 06/20/22 Florian Rojas, PharmD [address] [place] [phone] Pharmacist Internal Medicine 05/03/23 documented as of this encounter
--- OUTSIDE RECORDS SUMMARY | 2024-09-24 12:55 | XMS_ITS | Encounter Summary ---
Author Organization [employer] Address [address] [facility] 7 [place] [address] Care Team Providers Care Cardiology Clinical Nurse Specialist Name Role Phone Maria A Chavez MD Primary Care Provider [phone] Florian Rojas PharmD Unavailable [phone] Encounter Details Date Type Department Care Team (Late st Contact Info) Description 09/24/2024 Orders Only [facility] [address] [place], [place] [phone] Maria A Chavez MD [address] [place], [place] [phone] Social History Tobacco Use Types Packs/Day Years Used Date Smoking Tobacco: Former Cigarettes 2 04 30 988 1997 Passive Smoke Exposure: Never Smokeless Tobacco: [...] Info) Description 09/25/2024 2:00 PM EST Telemedicine [facility] [address] [place] [address] Florian Rojas PharmD [address] [place] [address] documented as of this encounter Goals Goal Patient Goal Type Associated Problems Recent Progress Patient-Stated? Author Blood Pressure < 140/90 Blood Pressure 140/80(2024 10:20 AM EST) No Florian Rojas PharmD Hemoglobin A1c < 7 Result Component 12.6(09/24/19 10:05 AM EST) No Florian Rojas PharmD documented as of this encounter Procedures Procedure Name Priority Date/Time Associated Diagnosis Comments XR ELBOW 3+ VIEWS LEFT Routine 09/24/2024 11:53 AM EST BASIC METABOLIC PANEL, FASTING Routine 09/24/2024 10:47 AM EST ALBUMIN, RANDOM URINE W/CREATININE Routine 09/24/2024 10:47 AM EST LIPID PANEL, STANDARD Routine 09/24/2024 10:47 AM EST documented in this encounter Results * XR Elbow 3+ Views Left (09/24/2024 11:53 AM EST) Anatomical Region Laterality Modality Upper Extremities, Elbow Left Radiogr aphic Imaging 09/24/2024 11:5 3 AM EST Narrative 09/24/2024 12:32 PM EST ? [facility] ?[address] ?[place] [address] ?XRay Report ? Signed ? Patient: Varma,Domingo ?MR#: [id number] ?? 14 ? : 1975 ?Acct:[id number] ? Age/Sex: 49 / M ?ADM Date: 09/24/24 ? Loc: HO.HHCL ? Attending Dr: Maria A Chavez MD ? Ordering Physician: Maria A Chavez MD ?? Date of Service: 09/24/24 ?? Procedure(s): XR elbow LT min 3V ?? Accession Number(s): [id number] ? cc: Maria A Chavez MD ? EXAMINATION: ?? XR ELBOW, LEFT ? CLINICAL INFORMATION: ?? PAIN ? COMPARISON: ?? None available. ? TECHNIQUE: ?? AP, lateral, and oblique views of the left elbow. ? FINDINGS: ?? No acute cortical disruption or malalignment. Small marginal osteophyte ?? formation along the ulnar aspect of the coronoid process of the ulna. ?? No joint effusion. ?? No lytic or blastic lesions. ?? No subcutaneous emphysema. ?? No metallic or radiopaque foreign body. ? XR/XR elbow LT min 3V ?? IMPRESSION: ?? Degenerative changes, coronoid processes of the ulna. ? Electronically signed by: ??Blake Pacheco MD ??09/24/2024 12:30 PM ?? EST RP ? Dictated By: ?Blake Arredondo MD ? Signed By: ?<Electronically signed by Blake Wilkerson MD in OV> ? 09/24/24 1230 ? DD/ 1153 ? TD/TT: 09/24/24 1200 ? Spanner Operator: ? Procedure Note Cristina, Shar - 09/24/[address] [address] XRay Report Signed Patient: Zeferino Varma FMR#: [id number] 14 : 1975Acct:[id number] Age/Sex: 49 / MADM Date: 09/24/24 Loc: HO.HHCL Attending Dr: Maria A Chavez MD Ordering Physician: Maria A Chavez MD Date of Service: 09/24/24 Procedure(s): XR elbow LT min 3V Accession Number(s): [id number] cc: Maria A Chavez MD EXAMINATION: XR ELBOW, LEFT CLINICAL INFORMATION: PAIN COMPARISON: None available. TECHNIQUE: AP, lateral, and oblique views of the left elbow. FINDINGS: No acute cortical disruption or malalignment. Small marginal osteophyte formation along the ulnar aspect of the coronoid process of the ulna. No joint effusion. No lytic or blastic lesions. No subcutaneous emphysema. No metallic or radiopaque foreign body. XR/XR elbow LT min 3V IMPRESSION: Degenerative changes, coronoid processes of the ulna. Electronically signed by: Blake Pacheco MD 09/24/2024 12:30 PM EST RP Dictated By: Blake Arredondo MD Signed By: <Electronically signed by Blake Wilkerson MDin OV> 09/24/24 1230 DD/ 1153 TD/TT: 09/24/24 1200 Spanner Operator: Maria A Chavez MD IMG XR PROCEDURES Final Result * (ABNORMAL) Lipid Panel, Standard (09/24/2024 10:47 AM EST) Triglycerides 160(H) <150 mg/dL [facility] Comment:Desirable Triglyceri de: less than 150 mg/dLBorderline High Triglyceride 150-199 mg/dLHigh Triglyceride: 200-499 mg/dLVery High Triglyceride: greater than or equal to 5OO mg/dL Cholesterol 95 <200 mg/dL [facility] Comment:Desirable Cholestero l: less than 200 mg/dLBorderline High Cholesterol: 200-239 mg/dLHigh Cholesterol: greater than 239 mg/dL LDL Cholesterol Calculated 32 <100 mg/dL [facility] Comment:Desirable LDL: less than 100 mg/dLNear Optimal/Above Optimal LDL: 110- 129 mg/dLBorderline High LDL: 130-159 mg/dLHigh LDL: 160-189 mg/dLVery High LDL: greater than or equal to 190 mg/dL HDL Cholesterol 31(L) >40 mg/dL [facility] Comment:Desirable HDL: great er than 40 mg/dL Note: This HDL assay may give artificially low results in patients with liver disease. 09/24/2024 10:4 7 AM EST 09/24/2024 11:35 AM EST Maria A Chavez MD LAB BLOOD ORDERABLES Final Resul t Performing Organization Address [facility] Co de Phone Number [facility] [address] [place] [phone] * (ABNORMAL) Basic Metabolic Panel, Fasting (09/24/2024 10:47 AM EST) Sodium 137 135 - 145 mmol/L [facility] Potassium 4.1 3.3 - 5.1 mmol/L [facility] Chloride 101 96 - 108 mmol/L [facility] Carbon Dioxide 28 22 - 29 mmol/L [facility] Anion Gap 12 12 - 20 [facility] Urea Nitrogen (BUN) 14 9 - 16 mg/dL [facility] Creatinine, Serum 0.75 0.5 - 1.4 mg/dL [facility] Estimated Glomerular Filt Rate >60 [facility] Comment:Chronic Kidney Disea se: Estimated GFR < 60 mL/min/1.42y1Eybpia Kidney Disease: Estimated GFR < 15 mL/min/1.73m2 Glucose Fasting 253(H) 60 - 99 mg/dL [facility] Comment:A fasting glucose of 126 mg/dl or greater on more than oneoccasion is considered diagnostic of diabetes. Calcium 9.7 8.4 - 10.2 mg/dL [facility] 09/24/2024 10:4 7 AM EST 09/24/2024 11:35 AM EST us Maria A Chavez MD LAB BLOOD ORDERABLES Final Resul t Performing Organization Address [facility] Co de Phone Number [facility] [address] [place] [phone] * Albumin, Random Urine W/Creatinine (09/24/2024 10:47 AM EST) Creatinine, Urine 216.86 mg/dL [facility] Microalbumin Urine 44.0 mg/L [facility] Microalbum Creatinine Ratio Ur 20.2 <30 ug/mg cr [facility] Comment:Albumin/Creatinine R atio Reference Ranges: Normal: < 30 ug/mg creatinine Microalbuminuria: 30 - 300 ug/mg creatinineClinical Albuminuria: > 300 ug/mg creatinine 09/24/2024 10:4 7 AM EST 09/24/2024 11:20 AM EST us Maria A Chavez MD LAB URINE ORDERABLES Final Resul t [facility] [address] [place] [phone] documented in this encounter Visit Diagnoses Not on filedocumented in this encounter Care Teams Cardiology Clinical Nurse Specialist Relationship Specialty Start Date End Date Maria A Chavez MD [address] [place] [phone] PCP - General Family Medicine 06/20/22 Florian Rojas, Esa [address] [place] [address] Pharmacist Internal Medicine 05/03/23 documented as of this encounter
--- OUTSIDE RECORDS SUMMARY | 2024-09-24 12:55 | XMS_ITS | Clinical Summary ---
Author Organization [employer] Address [address] [place] [address] [address], [place] [address] Care Team Providers Care Telephone Clerks Supervisor Name Role Phone Maria A Chavze MD Primary Care Provider [phone] Florian Rojas PharmD Unavailable [phone] Allergies No known active allergies Medications diclofenac sodium 3 % gelIndications:B ilateral carpal tunnel syndrome Apply topically 2 times daily. 100 g 09/14/19 23 Active Blood Pressure Monitor kitIndications:E ssential hypertension Check blood pressure once daily and as needed 1 kit 01/19/20 23 Active sertraline (Zoloft) 25 MG tablet Take 1 tablet (25 mg) by mouth in the morning. 90 tablet 3 06/14/20 23 Active Continuous Blood Gluc Sensor (FreeStyle Feliberto 2 Sensor) misc Use as directed 2 each 11 06/24/20 23 Active ceramides (CeraVe) moisturizing creamIndications :Pruritus APPLY TOPICALLY NEEDED FOR DRY SKIN. 453 g 2 07/18/20 23 Active gabapentin (Neurontin) 100 MG capsuleIndicatio ns:Neuropathy TAKE 1-2 CAPSULE (S) BY MOUTH THREE TIMES DAILY NEEDED 60 capsule 3 07/21/20 23 Active tadalafil (Cialis) 10 MG tablet Take 1 tablet 30 minutes prior to anticipated sexual activity; do not take more than once daily 10 tablet 3 10/10/19 24 Active terbinafine (LamISIL) 1 % cream Apply once or twice daily between toes 28 g 1 10/10/19 24 Active TRUEplus Lancets 33G misc TEST BLOOD SUGAR TWICE DAILY 100 each 11 11/09/19 24 Active FREESTYLE LITE test strip TEST BLOOD SUGAR TWICE DAILY 100 strip 11 11/09/19 24 Active Alcohol Swabs (Alcohol Prep) 70 % pads TEST BLOOD SUGAR TWICE DAILY DIRECTED 100 each 11 11/09/19 24 Active metFORMIN XR (Glucophage-XR) 500 MG 24 hr tablet TAKE 2 TABLETS BY MOUTH TWICE DAILY. DO NOT BREAK, CRUSH, DISSOLVE OR CHEW 360 tablet 3 11/27/19 24 Active atorvastatin (Lipitor) 20 MG tablet TAKE 1 TABLET BY MOUTH AT BEDTIME 90 tablet 3 11/27/19 24 Active losartan (Cozaar) 100 MG tablet TAKE 1 TABLET BY MOUTH EVERY MORNING 90 tablet 3 02/06/20 24 Active triamcinolone (Kenalog) 0.1 % ointmentIndicati ons:Psoriasis Apply topically 2 times daily. 453.6 g 05/03/20 24 Active ustekinumab (Stelara) injectionIndicat ions:Psoriasis Inject 1 ml q3 months 1 mL 11 05/03/20 24 Active Continuous Glucose Machine Shop Instructor (ensembliStyle Feliberto 2 Bishop) device USE DIRECTED 1 each 1 05/20/20 24 Active ketoconazole (NIZOral) 2 % cream APPLY TOPICALLY TO AFFECTED AREA(S) EVERY MORNING 60 g 1 05/22/20 24 Active chlorthalidone (Hygroton) 25 MG tablet Take 1/2 tablets by mouth once daily 90 tablet 3 07/28/20 24 Active Dulaglutide (Trulicity) 3 MG/0.5ML solution auto-injectorInd ications:Type 2 diabetes mellitus with hyperglycemia, without long-term current use of insulin (CMS/HCC) Inject 3 mg under the skin 1 (one) time per week. 2 mL 5 09/04/19 25 Active Dulaglutide (Trulicity) 1.5 MG/0.5ML solution auto-injectorInd ications:Type 2 diabetes mellitus with hyperglycemia, without long-term current use of insulin (CMS/HCC) Inject 1.5 mg under the skin 1 (one) time per week. 2 mL 2 05/31/20 24 025 Discontin ued(Dose adjustmen t) Active Problems Problem Noted Date Diagnosed Date Dysuria 10/12/2023 Assessment & Plan (10/12/2023 12:10 AM EDT): - Will check PSA for further evaluation - Ordered urinalysis w/ culture Weak urinary stream 10/12/2023 Assessment & Plan (10/12/2023 12:10 AM EDT): - Will check PSA for further evaluation Erectile dysfunction 10/11/2023 Assessment & Plan (10/11/2023 11:58 PM EDT): - Take Tdalafil 10 mg as needed. Elevated alanine aminotransferase (ALT) level Assessment & Plan (09/24/2024 8:56 AM EST): - negative hepatitis profile - will recommend hepatitis A and B immunizations - evaluate with US - avoid hepatotoxic substances Assessment & Plan (08/11/2023 12:09 PM EST): - negative hepatitis profile - will recommend hepatitis A and B immunizations - evaluate with US - avoid hepatotoxic substances Dyslipidemia 06/24/2023 Assessment & Plan (09/24/2024 8:56 AM EST): - last lipid profile: 06/14/23 total cholesterol 103; triglyceride 113; LDL 48; HDL 33 - current medication: Atorvastatin 20 mg at bedtime - continue current medication and lifestyle modifications Assessment & Plan (08/11/2023 12:10 PM EST): - last lipid profile: 06/14/23 total cholesterol 103; triglyceride 113; LDL 48; HDL 33 - current medication: Atorvastatin 20 mg at bedtime - continue current medication and lifestyle modifications At increased risk for cardiovascular disease Assessment & Plan (09/24/2024 8:56 AM EST): - last lipid profile: 06/14/23 total cholesterol 103; triglyceride 113; LDL 48; HDL 33 - current medication: Atorvastatin 20 mg at bedtime - continue current medication and lifestyle modifications Assessment & Plan (08/11/2023 12:09 PM EST): - last lipid profile: 06/14/23 total cholesterol 103; triglyceride 113; LDL 48; HDL 33 - current medication: Atorvastatin 20 mg at bedtime - continue current medication and lifestyle modifications Assessment & Plan (06/24/2023 7:01 AM EST): - last lipid profile: September 2022, normal, but pt's risk for ASCVD is high and statin therapy is recommended - current medication: Atorvastatin 20 mg at bedtime - continue current medication and lifestyle modifications Metabolic syndrome 01/18/2023 Assessment & Plan (06/24/2023 6:58 AM EST): Patient had HTN, T2DM, AUDELIA and Obesity - continue with lifestyle modifications - improve adherence to medications - improve adherence to checking BP and BG at home Assessment & Plan (01/18/2023 11:07 AM EDT): Patient had HTN, T2DM, AUDELIA and Obesity - continue with lifestyle modifications - improve adherence to medications - improve adherence to checking BP and BG at home Obesity 01/18/2023 Assessment & Plan (06/24/2023 7:06 AM EST): Work on lifestyle modifications On GLP-1 agonist Carpal tunnel syndrome on both sides 10/24/2022 Assessment & Plan (06/24/2023 7:11 AM EST): - Nerve Conduction Test in 05/2022, showed Capsqcpm-jj-Ipnlgk bilateral carpal tunnel syndrome - s/p bilateral carpal tunnel release -Right 12/05/22 -Left 01/02/23 -improved symptoms; follow up with ortho prn Assessment & Plan (01/19/2023 5:37 AM EDT): - Nerve Conduction Test in 05/2022, showed Opddagpx-zt-[id number] bilateral carpal tunnel syndrome s/p bilateral carpal tunnel release -Right 12/05/22 -Left 01/02/23 -follow with Orthopedist Assessment & Plan (10/24/2022 5:20 PM EDT): Nerve Conduction Test in 05/2022, showed Gqdmowkn-nk-Fowdso bilateral carpal tunnel syndrome -Continue wearing braces -Judicious use of gabapentin -Referral to Hand Specialist placed AUDELIA (obstructive sleep apnea) 10/24/2022 Assessment & Plan (09/24/2024 8:55 AM EST): Following with [facility] -Sleep Study on 10/17/22 confirmed AUDELIA Patient has difficulty using CPAP due to discomfort. Patient will consult with [facility] Medicine [facility] Provider. Assessment & Plan (10/10/2023 6:24 AM EDT): Following with [facility] -Sleep Study on 10/17/22 confirmed AUDELIA Patient has difficulty using CPAP due to discomfort. Patient will consult with [facility] Provider. Assessment & Plan (08/11/2023 11:58 AM EST): Following with [facility] -Sleep Study on 10/17/22 confirmed AUDELIA Patient has difficulty using CPAP due to discomfort. Patient will consult with [facility] Provider. Assessment & Plan (06/24/2023 7:11 AM EST): Following with [facility] -Sleep Study on 10/17/22 confirmed AUDELIA Patient has difficulty using CPAP due to discomfort. Patient will consult with [facility] Provider. Assessment & Plan (01/18/2023 11:06 AM EDT): Following with [facility] -Sleep Study on 10/17/22 confirmed AUDELIA Patient has difficulty using CPAP due to discomfort. Patient will consult with [facility] Provider. Assessment & Plan (10/24/2022 5:21 PM EDT): Following with [facility] -Sleep Study on 10/17/22 confirmed AUDELIA -pt encouraged to check status of CPAP machine Health care maintenance 10/24/2022 Assessment & Plan (01/19/2023 5:44 AM EDT): - Colon cancer screening: Colonoscopy by Dr. Harvey on 07/15/22, mild diverticulosis and small hemorrhoids. Repeat in 10 years. - Immunizations: Due for PCV20 Assessment & Plan (10/24/2022 5:55 AM EDT): - Colon cancer screening: Colonoscopy by Dr. Harvey on 07/15/22, mild diverticulosis and small hemorrhoids. Repeat in 10 years. - Immunizations: Left foot pain 10/24/2022 Assessment & Plan (01/19/2023 5:41 AM EDT): - XR on 11/02/22 showed: At the anterior margin of the tibiotalar joint, there are tiny avulsions fragments, possibly chronically avulsed osteophytes. A tiny posterior calcaneal spur. - seen by brim curler - pt received shoe inserts and currently pain-free - Pt will benefit from Diabetic Shoes Assessment & Plan (11/05/2022 4:16 PM EDT): Likely plantar fasciiitis - evaluate with XR - refer to Gasoline Truck Crane Operator -Pt will benefit from Diabetic Shoes Epigastric pain 10/23/2017 Moderate major depression, single episode 2016 Assessment & Plan (09/24/2024 8:56 AM EST): -[facility] provider: JENNY therapist Diana Balderrama -pt is interested in trying a new antidepressant -previously tried venlafaxine, which was discontinued due to ineffectiveness -continue sertraline 25 mg daily. -continue exercising at gym, which seems to help with his symptoms -able to contract his safety today Assessment & Plan (08/11/2023 12:07 PM EST): -[facility] provider: ehsan ALVARADO -pt is interested in trying a new antidepressant -previously tried venlafaxine, which was discontinued due to ineffectiveness -continue sertraline 25 mg daily. -continue exercising at gym, which seems to help with his symptoms -able to contract his safety today Assessment & Plan (06/24/2023 7:04 AM EST): -[facility] provider: JENNY therapist Diana Balderrama -pt is interested in trying a new antidepressant -previously tried venlafaxine, which was discontinued due to ineffectiveness -start sertraline 25 mg daily. -continue exercising at gym, which seems to help with his symptoms -able to contract his safety today Assessment & Plan (01/19/2023 5:44 AM EDT): -Doing better today -Following with a therapist -possibly with adjustment disorder currently due to divorce process -pt declined antidepressants (previously tried venlafaxine) -pt joined a gym, which seems to help with his symptoms -able to contract his safety today Assessment & Plan (11/05/2022 4:20 PM EDT): -Following with a therapist -possibly with adjustment disorder currently due to divorce process - pt declines antidepressants (previously tried venlafaxine) -pt joined a gym, which seems to help with his symptoms -able to contract his safety today HTN (hypertension) 02/17/2017 Assessment & Plan (09/24/2024 8:55 AM EST): Goal BP <140/90 per JNC-8, < 130/80 per ACC/AHA guideline -BP not at goal today (consecutively) -Co-managed with our pharmacist, Florian Rojas Rph, PharmD, through [facility] -Continue working on lifestyle modifications -continue monitoring BP at home (send a new script) -continue Losartan 100mg daily -continue chlorthalidone 12.5 mg daily -continue working on lifestyle modifications - follow up in 3 mo or sooner prn Assessment & Plan (10/10/2023 6:25 AM EDT): Goal BP <140/90 per JNC-8, < 130/80 per ACC/AHA guideline -BP not at goal today (consecutively) -Co-managed with our pharmacist, Florian Rojas Rph, PharmD, through [facility] -Continue working on lifestyle modifications -continue monitoring BP at home (send a new script) -continue Losartan 100mg daily -continue chlorthalidone 12.5 mg daily -continue working on lifestyle modifications - follow up in 3 mo or sooner prn Assessment & Plan (08/11/2023 11:58 AM EST): Goal BP <140/90 per JNC-8, < 130/80 per ACC/AHA guideline -BP not at goal today (consecutively) -Co-managed with our pharmacist, Florian Rojas Rph, PharmD, through [facility] -Continue working on lifestyle modifications -continue monitoring BP at home (send a new script) -continue Losartan 100mg daily -continue chlorthalidone 12.5 mg daily -continue working on lifestyle modifications - follow up in 3 mo or sooner prn Assessment & Plan (06/24/2023 7:10 AM EST): Goal BP <140/90 per JNC-8, < 130/80 per ACC/AHA guideline -BP not at goal today (consecutively) -Co-managed with our pharmacist, Florian Rojas [facility], PharmD, through [facility] -Continue working on lifestyle modifications -continue monitoring BP at home (send a new script) -continue Losartan 100mg daily -add chlorthalidone 12.5 mg daily -continue working on lifestyle modifications - follow up in 3 mo or sooner prn Assessment & Plan (01/19/2023 5:38 AM EDT): Goal BP <140/90 per JNC-8, < 130/80 per ACC/AHA guideline -BP not at goal today (consecutively) -Continue working on lifestyle modifications -continue monitoring BP at home (send a new script) -continue Losartan 100mg daily -continue working on lifestyle modifications -Refer to [facility] Assessment & Plan (11/05/2022 4:07 PM EDT): Goal BP <140/90 per JNC-8, < 130/80 per ACC/AHA guideline -BP not at goal today -Continue working on lifestyle modifications -continue monitoring BP at home -continue Losartan 100mg daily -continue working on lifestyle modifications -Refer to [facility] Type 2 diabetes mellitus 02/17/2017 Assessment & Plan (09/24/2024 10:36 AM EST): - A1c 12.6% on 09/24/24, 9.2% on 06/14/23, no significant improvement from 9.5% on 01/18/23 despite increasing dulaglutide - questionable medication adherence [...] up in 3 mo or sooner prn Assessment & Plan (10/10/2023 6:25 AM EDT): - A1c 9.2% on 06/14/23, no significant improvement from 9.5% on 01/18/23 despite increasing dulaglutide - questionable medication adherence [...] up in 3 mo or sooner prn Assessment & Plan (08/11/2023 12:06 PM EST): - A1c 9.2% on 06/14/23, no significant improvement from 9.5% on 01/18/23 despite increasing dulaglutide - questionable medication adherence [...] up in 3 mo or sooner prn Assessment & Plan (06/24/2023 7:09 AM EST): - A1c 9.2% on 06/14/23, no significant improvement from 9.5% on 01/18/23 despite increasing dulaglutide - questionable medication adherence and dietary modification (Hx self-adjustment of medications) -Continue Metformin 1000 mg BID -Increase dulaglutide to 3.0 mg weekly -He will benefit from having CGM Last Eye Exam: 03/2022, upcoming appt Last Foot Exam: 10/24/22 Last Microalbumin Test: 12/13/21 UACR negative Last Lipid profile: 10/24/22 TC 148; TG 127; HDL 42; LDL 84 Follow up in 3 mo or sooner prn Assessment & Plan (01/19/2023 5:43 AM EDT): A1c 9.5% on 01/18/23, worsened from 8.4% on 10/24/22 Pt has been self-adjusting medications -Continue Metformin 1000 mg BID -Increase Trulicity to 1.5mg weekly Last Eye Exam: 03/2022, upcoming appt Last Foot Exam: 10/24/22 Last Microalbumin Test: 12/13/21 UACR negative Last Lipid profile: 10/24/22 TC 148; TG 127; HDL 42; LDL 84 Follow up in 3 mo or sooner prn Assessment & Plan (10/31/2022 9:11 AM EDT): A1c 8.4% on 10/24/22 Pt has been self-adjusting medications -Resume Metformin 1000 mg BID -Continue Trulicity 0.75mg weekly Last Eye Exam: 03/2022, upcoming appt Last Foot Exam: 10/24/22 Last Microalbumin Test: 12/13/21 UACR negative Last FLP: will update Psoriasis 02/01/2017 Assessment & Plan (09/24/2024 8:56 AM EST): Following with Agency Recruiter -Continue Triamcinolone 0.1% cream, 80g compounded with 1lb of CeraVe after showers and before bedtime. -Continue ustekunimab injection as prescribed -Evaluated by postdoctoral research associate for possible arthritis. Unlikely to have psoriatic arthritis. Elevated ESR and CRP likely due to obesity. Assessment & Plan (10/12/2023 12:00 AM EDT): Following with Agency Recruiter -Continue Triamcinolone 0.1% cream, 80g compounded with 1lb of CeraVe after showers and before bedtime. -Continue ustekunimab injection as prescribed -Evaluated by postdoctoral research associate for possible arthritis. Unlikely to have psoriatic arthritis. Elevated ESR and CRP likely due to obesity. Assessment & Plan (08/11/2023 12:07 PM EST): -Following with Agency Recruiter -Continue Triamcinolone 0.1% cream, 80g compounded with 1lb of CeraVe after showers and before bedtime. -Continue ustekunimab injection as prescribed -Evaluated by postdoctoral research associate for possible arthritis. Unlikely to have psoriatic arthritis. Elevated ESR and CRP likely due to obesity. Assessment & Plan (06/24/2023 7:05 AM EST): -Following with Agency Recruiter -Continue Triamcinolone 0.1% cream, 80g compounded with 1lb of CeraVe after showers and before bedtime. -Continue ustekunimab injection as prescribed -Refer to postdoctoral research associate to evaluate for possible arthritis. Pt is on Stelala, but will check ESR and CRP. Assessment & Plan (01/19/2023 5:43 AM EDT): -Following with Agency Recruiter -Continue Triamcinolone 0.1% cream, 80g compounded with 1lb of CeraVe after showers and before bedtime. Assessment & Plan (11/05/2022 4:18 PM EDT): -Following with Dr. Rodriguez / Derm clinic -Continue Triamcinolone 0.1% cream, 80g compounded with 1lb of CeraVe after showers and before bedtime. Resolved Problems Problem Noted Date Diagnosed Date Resolved Date Numbness of hand 10/23/2022 10/24/2022 Paronychia of toe 12/22/2017 01/19/2023 Obesity (BMI 30-39.9) 02/01/20172022 Assessment & Plan (10/24/2022 5:19 PM EDT): Work on lifestyle modifications Encounters Date Type Department Care Team Description 09/24/2024 10:30 AM EST Office Visit [facility] [address] [place] [address] [phone] Maria A Chavez MD AUDELIA (obstructive sleep apnea) (Primary Dx); Hypertension, unspecified type; Type 2 diabetes mellitus with hyperglycemia, without long-term current use of insulin ([facility]); Dyslipidemia; At increased risk for cardiovascular disease; Psoriasis; Moderate major depression, single episode ([facility]); Elevated alanine aminotransferase (ALT) level; Left elbow pain 09/24/2024 Orders Only [facility] [address] [place] [address] Maria A Chavez MD 09/24/2024 Travel 09/24/2024 Refill [facility] [address] [place] [address] Florian Rojas, PharmD Type 2 diabetes mellitus with hyperglycemia, without long-term current use of insulin ([facility]) 09/18/2024 Telephone [facility] [address] [place] [address] Maria A Chavez MD Chart Prep 09/04/2024 Travel 07/26/2024 Refill [facility] [address] [place] [address] Christiano Alegre, PharmD 07/26/2024 Refill [facility] [address] [place] [address] Maria A Chavez MD 07/25/2024 Refill [facility] [address] [place] [address] Maria A Chavez MD 06/28/2024 Refill [facility] [address] [place] [address] Maria A Chavez MD Neuropathy 06/26/2024 Telephone [facility] [address] [place] [address] Maria A Chavez MD Prior Authorization (Trulicity ) 06/26/2024 Telephone [facility] [address] [place] [address] Florian Rojas, PharmD from Last 3 Months Immunizations Name Administration Dates Next Due Hep A, Adult 09/13/2023,01/18/2023 Hep B, adult 07/19/2023,02/22/2023,01/18/2023 Pfizer Covid-19 Vaccine 12+ 08/08/2023 Pneumococcal Conjugate PCV 20 08/08/2023 Tdap 02/01/2017 Social History Tobacco Use Types Packs/Day Years Used Date Smoking Tobacco: Former Cigarettes 2 10 1 988 - 1997 Passive Smoke Exposure: Never Smokeless Tobacco: Never Tobacco Cessation:Counseling Given: Not Answered Housing Stability Answer Date Recorded What is [...] Orientation Straight 05/30/2022 10 :31 AM EDT Last Filed Vital Signs Vital Sign Reading [...] Mass Index 47.06 09/24/2024 10:03 AM EST Plan of Treatment Upcoming Encounters Date Type Department Care Team (Late st Contact Info) Description 09/25/2024 2:00 PM EST Telemedicine [facility] [address] [place] [address] Florian Rojas, PharmD [address] [place] [address] Health Maintenance Due Date Last Done Comments CT Colonography 1974 Depression Screening 1974 FIT DNA/Cologuard 1974 FIT 1974 FOBT 1974 Sigmoidoscopy 1974 Eye Exam 1984 Family Planning (PISQ) 1989 SDOH Screening 01/19/2024 01/18/2023 COVID-19 Vaccine ( season) 2024 08/08/2023 Influenza Vaccine (#1) 2024 Zoster Vaccines (1 of 2) 2024 Diabetes: Foot Exam 10/09/2024 10/10/2023, 10/10/2023, 10/10/2023, Additional history exists Diabetes: Hemoglobin A1C 12/22/2024 025, 09/04/2024, 05/29/2024, Additional history exists Alcohol/Substance Use Screening 09/24/2025 09/24/2024 Diabetes: Urine Protein Screening 09/24/2025 09/24/2024, 06/14/2023, 01/18/2023, Additional history exists Lipid Panel 09/24/2025 09/24/2024, 05/31, 10/24/2022, Additional history exists Tobacco Screening 09/24/2025 09/24/2024 DTaP/Tdap/Td Vaccines (2 - Td or Tdap) 02/01/2027 02/01/2017 Colonoscopy 07/18/2032 07/18/2022 Colorectal Cancer Screening 07/18/2032 RSV Patients and Patients Aged 60 years or older (1 - 1-dose 75+ series) 2049 Hepatitis C Screening Completed 11/09/2022, 022 HIV Screening Completed 01/18/2023, 12/13/2021 Hepatitis B Vaccines Completed 07/19/2023, 02/22/2023, 01/18/2023 Pneumococcal Vaccine: 50+ Years Completed 08/08/2023 Hepatitis A Vaccines Aged Out 09/13/2023, 01/19/20 23 No longer eligible based on patient's age to complete this topic HIB Vaccines Aged Out No longer eligi ble based on patient's age to complete this topic HPV Vaccines Aged Out No longer eligi ble based on patient's age to complete this topic IPV Vaccines Aged Out No longer eligi ble based on patient's age to complete this topic Meningococcal Vaccine Aged Out No yazmin melchor eligible based on patient's age to complete this topic RSV under 20 months Aged Out No longe r eligible based on patient's age to complete this topic Rotavirus Vaccines Aged Out No longer eligible based on patient's age to complete this topic Goals Goal Patient Goal Type Associated Problems Recent Progress Patient-Stated? Author Blood Pressure < 140/90 Blood Pressure 140/80(2024 10:20 AM EST) No Florian Rojas PharmD Hemoglobin A1c < 7 Result Component 12.6(09/24/19 10:05 AM EST) No Florian Rojas PharmD Procedures Procedure Name Priority Date/Time Associated Diagnosis Comments XR ELBOW 3+ VIEWS LEFT Routine 09/24/2024 11:53 AM EST LIPID PANEL, STANDARD Routine 09/24/2024 10:47 AM EST BASIC METABOLIC PANEL, FASTING Routine 09/24/2024 10:47 AM EST ALBUMIN, RANDOM URINE W/CREATININE Routine 09/24/2024 10:47 AM EST HEPATIC FUNCTION PANEL Routine 09/24/2024 10:47 AM EST Dyslipidemia POCT GLYCOSYLATED HEMOGLOBIN (HGB A1C) Routine 09/24/2024 10:05 AM EST Type 2 diabetes mellitus with hyperglycemia, without long-term current use of insulin ([facility]) POCT GLUCOSE Routine 09/24/2024 10:04 AM EST Type 2 diabetes mellitus with hyperglycemia, without long-term current use of insulin ([facility]) POCT GLYCATED HEMOGLOBIN, TOTAL Routine 09/04/2024 2:55 PM EST Type 2 diabetes mellitus with hyperglycemia, without long-term current use of insulin (CMS/HCC) HIV 1/2 ANTIGEN/ANTIBODY, FOURTH GENERATION W/RFL Routine 01/18/2023 11:06 AM EDT Routine screening for STI (sexually transmitted infection) HEPATITIS C AB W/REFL TO HCV RNA, QN, PCR Routine 11/09/2022 8:14 AM EDT Transaminitis HM COLONOSCOPY Routine 07/18/2022 from Last 3 Months or Most Recently Relevant to Health Maintenance Results * XR Elbow 3+ Views Left (09/24/2024 11:53 AM EST) Anatomical Region Laterality Modality Upper Extremities, Elbow Left Radiogr aphic Imaging 09/24/2024 11:5 3 AM EST Narrative 09/24/2024 12:32 PM EST ? [facility] ?[address] ?[place] [address] ?XRay Report ? Signed ? Patient: Zeferino Varma ?MR#: [id number] ?? 14 ? : 1975 ?Acct:[id number] ? Age/Sex: 49 / M ?ADM Date: 09/24/24 ? Loc: HO.HHCL ? Attending Dr: Maria A Chavez MD ? Ordering Physician: Maria A Chavez MD ?? Date of Service: 09/24/24 ?? Procedure(s): XR elbow LT min 3V ?? Accession Number(s): [id number] ? cc: Maria A Chavez MD ? [...] DD/ 1153 ? TD/TT: 09/24/24 1200 ? Adoption Worker: ? Procedure Note Donotuseinterpreter, Image - 09/24/2024 [place] [address] XRay Report Signed Patient: Zeferino Varma FMR#: [id number] [birth year] : 1975Acct:[id number] Age/Sex: 49 / MADM Date: 09/24/24 Loc: HO.CL Attending Dr: Maria A Chavez MD Ordering Physician: Maria A Chavez MD Date of Service: 09/24/24 Procedure(s): XR elbow LT min 3V Accession Number(s): [id number] cc: Maria A Chavez MD EXAMINATION: XR [...] Blake Pacheco MD 09/24/2024 12:30 PM EST Dictated By: Blake Arredondo MD Signed By: <Electronically signed by Blake Wilkerson MDin OV> 09/24/24 1230 DD/ 1153 TD/TT: 09/24/24 1200 Adoption Worker: Maria A Chavez MD IMG XR PROCEDURES Final Result * (ABNORMAL) Basic Metabolic Panel, Fasting (09/24/2024 10:47 AM EST) Sodium 137 135 - 145 mmol/L [facility] Potassium 4.1 3.3 - 5.1 mmol/L [facility] Chloride 101 96 - 108 mmol/L [facility] Carbon Dioxide 28 22 - 29 mmol/L [facility] Anion Gap 12 12 - 20 [facility] Urea Nitrogen (BUN) 14 9 - 16 mg/dL [facility] Creatinine, Serum 0.75 0.5 - 1.4 mg/dL [facility] Estimated Glomerular Filt Rate >60 [facility] Comment:Chronic Kidney Disea se: Estimated GFR < 60 mL/min/1.14t5Gazbzz Kidney Disease: Estimated GFR < 15 mL/min/1.73m2 Glucose Fasting 253(H) 60 - 99 mg/dL [facility] Comment:A fasting glucose of 126 mg/dl or greater on more than oneoccasion is considered diagnostic of diabetes. Calcium 9.7 8.4 - 10.2 mg/dL [facility] 09/24/2024 10:4 7 AM EST 09/24/2024 11:35 AM EST Maria A Chavez MD LAB BLOOD ORDERABLES Final Resul t [facility] [address] [place] [phone] * Albumin, Random Urine W/Creatinine (09/24/2024 10:47 AM EST) Creatinine, Urine 216.86 mg/dL [facility] Microalbumin Urine 44.0 mg/L [facility] Microalbum Creatinine Ratio Ur 20.2 <30 ug/mg cr [facility] Comment:Albumin/Creatinine R atio Reference Ranges: Normal: < 30 ug/mg creatinine Microalbuminuria: 30 - 300 ug/mg creatinineClinical Albuminuria: > 300 ug/mg creatinine 09/24/2024 10:4 7 AM EST 09/24/2024 11:20 AM EST Maria A Chavez MD LAB URINE ORDERABLES Final Resul t Performing Organization Address City/[facility] Co de Phone Number [facility] [address] [place] [phone] * (ABNORMAL) Hepatic Function Panel (09/24/2024 10:47 AM EST) Bilirubin, Total 0.3 0.0 - 1.0 mg/dL [facility] Bilirubin, Direct 0.1 0.0 - 0.5 mg/dL [facility] Aspartate Amino Transferase 52(H) 5 - 37 U/L [facility] Alanine Aminotransferase 106(H) 0 - 40 U/L [facility] Total Protein 7.8 6.5 - 8.0 g/dL [facility] Albumin Level 4.1 3.5 - 5.0 g/dL [facility] Alkaline Phosphatase 110 39 - 117 U/L [facility] Blood Venous blood specimen / Unknown 09/24/2024 10:47 AM EST 09/24/2024 11:35 AM EST Maria A Chavez MD LAB BLOOD ORDERABLES Final Resul t Performing Organization Address City/[facility]/ZIP Co de Phone Number [facility] [address] [place] [phone] * (ABNORMAL) Lipid Panel, Standard (09/24/2024 10:47 AM EST) Triglycerides 160(H) <150 mg/dL [facility] Comment:Desirable Triglyceri de: less than 150 mg/dLBorderline High Triglyceride 150-199 mg/dLHigh Triglyceride: 200-499 mg/dLVery High Triglyceride: greater than or equal to 5OO mg/dL Cholesterol 95 <200 mg/dL [facility] Comment:Desirable Cholestero l: less than 200 mg/dLBorderline High Cholesterol: 200-239 mg/dLHigh Cholesterol: greater than 239 mg/dL LDL Cholesterol Calculated 32 <100 mg/dL [facility] Comment:Desirable LDL: less than 100 mg/dLNear Optimal/Above Optimal LDL: 110- 129 mg/dLBorderline High LDL: 130-159 mg/dLHigh LDL: 160-189 mg/dLVery High LDL: greater than or equal to 190 mg/dL HDL Cholesterol 31(L) >40 mg/dL [facility] Comment:Desirable HDL: great er than 40 mg/dL Note: This HDL assay may give artificially low results in patients with liver disease. 09/24/2024 10:4 7 AM EST 09/24/2024 11:35 AM EST Maria A Chavez MD LAB BLOOD ORDERABLES Final Resul t Performing Organization Address City/State/[facility] Co de Phone Number [facility] [address] [place] [phone] * (ABNORMAL) POCT glycosylated hemoglobin (Hgb [...] Media Lot # [id number] Lot# Expiration Date [id number] Blood Capillary blood specimen / Unknown 09/24/2024 10:04 AM EST us Maria A Chavez MD POINT OF CARE TEST ENTER/EDIT OR DERABLES Final Result * (ABNORMAL) POCT HGB A1C (09/04/2024 2:55 PM EST) Pathologist [facility] Hemoglobin A1C 13.8(A) 4.0 - 6.0 % QC Media Lot # [id number] Lot# Expiration Date Blood 09/04/2024 2:55 PM EST Maria A Chavez MD POINT OF CARE TEST ENTER/EDIT OR DERABLES Final Result * HIV-1/2 Antigen and Antibodies, Fourth Generation, with Reflexes (01/18/2023 11:06 AM EDT) Pathologist [facility] HIV Antigen/Antibody, 4th Generation NON-REAC TIVE NON-REAC TIVE [facility] Comment: HIV-1 antigen and HIV-1/HIV-2 antibodies were not detected. There is no laboratory evidence of HIV infection. PLEASE NOTE: This information has been disclosed to you from records whose confidentiality may be protected by state law. ??If your state requires such protection, then the state law prohibits you from making any further disclosure of the information without the specific written consent of the person to whom it pertains, or as otherwise permitted by law. A general authorization for the release of medical or other information is NOT sufficient for this purpose. ?? For additional information please refer to http://education.SeoPult.iGistics/faq/LKP815 (This link is being provided for informational/ educational purposes only.) The performance of this assay has not been clinically validated in patients less than 2 years old. Blood Venous blood specimen / Unknown 01/18/2023 11:06 AM EDT 01/18/2023 11:07 AM EDT Narrative [facility] - 01/19/2023 7:14 PM EDT FASTING:NO FASTING: NO us Maria A Chavez MD LAB BLOOD ORDERABLES Final Resul t [facility] [address], [place] [phone] [facility] [place] [employer] [facility] [address] [place] [address] * Hepatitis C Antibody with Reflex to HCV, RNA, Quantitative, Real-Time PCR (11/09/2022 8:14 AM EDT) [facility] Hepatitis C Antibody NON-REACT ALINA NON-REACT ALINA [facility] [place] [facility] Index 0.10 <1.00 [facility] [place] [facility] Comment: HCV antibody was non-reactive. There is no laboratory evidence of HCV infection. In most cases, no further action is required. However, if recent HCV exposure is suspected, a test for HCV RNA (test code 42854) is suggested. For additional information please refer to http://education.MemfoACT/faq/XRV27j9 (This link is being provided for informational/ educational purposes only.) Blood Venous blood specimen / Unknown 11/09/2022 8:14 AM EDT 11/09/2022 8:15 AM EDT Narrative [facility] - 11/10/2022 1:19 AM EDT FASTING:YES FASTING: YES Maria A Chavez MD LAB BLOOD ORDERABLES Final Resul t [facility] [address], [place] [phone] [facility] [place] [employer] [address] [place] [address] * Hm Colonoscopy (07/18/2022) [facility] Colonoscopy Normal Normal us Jonathan Harvey MD HEALTH MAINTENANCE Edited Result - Final from Last 3 Months or Most Recently Relevant to Health Maintenance Insurance , [address] [place] [address] Care Teams Telephone Clerks Supervisor Relationship Specialty Start Date End Date Maria A Chavez MD [address] [place] [phone] PCP - General Family Medicine 06/20/22 Florian Rojas, RayaD [address] [place] [phone] Pharmacist Internal Medicine 05/03/23
--- OUTSIDE RECORDS SUMMARY | 2024-09-24 12:55 | XMS_ITS | Encounter Summary ---
Author Organization [facility] Address [address] [place] [address] Care Team Providers Care Software Engineer Kernel Name Role Phone Maria A Chavez MD Primary Care Provider [phone] Florian Rojas PharmD Unavailable Encounter Details Date Type Department Care Team (Latest Contact Info) Description 09/04/2024 Travel Social History Tobacco Use Types Packs/Day [...] Info) Description 09/25/2024 2:00 PM EST Telemedicine [facility] [address] [place] [address] Florian Rojas PharmD [address] [place] [address] documented as of this encounter Goals Goal Patient Goal Type Associated Problems Recent Progress Patient-Stated? Author Blood Pressure < 140/90 Blood Pressure 140/80(2024 10:20 AM EST) No Florian Rojas PharmD Hemoglobin A1c < 7 Result Component 12.6(09/24/19 10:05 AM EST) No Florian Rojas PharmD documented as of this encounter Visit Diagnoses Not on filedocumented in this encounter Care Teams Software Engineer Kernel Relationship Specialty Start Date End Date Maria A Chavez MD [address] [place] [phone] PCP - General Family Medicine 06/20/22 Florian Rojas PharmD [address] [place] [phone] Pharmacist Internal Medicine 05/03/23 documented as of this encounter
== END 2024-09-24 10:46 | disposition home or self-care (01) ==
LOC: HO.HHCL 10:45
PROVIDERS: Visit Provider Family Medicine
DX: E11.65 Type 2 diabetes mellitus with hyperglycemia (principal); E78.5 Hyperlipidemia, unspecified; M25.522 Pain in left elbow
CPT/HCPCS: 36415; 73080; 80048; 80061; 80076; 82043; 82570

== ENCOUNTER → 2024-09-24 11:53 | Outpatient (BNV) | payer MEDICAID, SELFPAY | PROVIDERS: Visit Provider Radiology Diagnostic Radiology | DX: M19.022 Primary osteoarthritis, left elbow (principal) | CPT/HCPCS: 73080 ==

== ENCOUNTER 2025-05-16 12:14 | Outpatient (REF) | payer OTHER, SELFPAY ==
--- OUTSIDE RECORDS SUMMARY | 2025-05-16 14:51 | XMS_ITS | Clinical Summary ---
Author Organization [employer] Address [address] [place] [address] [address] [address] Care Team Providers Care Assisted Living Manager Name Role Phone Maria A Chavez MD Primary Care Provider [phone] Florian Rojas PharmD Unavailable [phone] Allergies No known active allergies Medications Blood Pressure Monitor kitIndications: Essential hypertension Check blood pressure once daily and as needed 1 kit 01/19/20 23 Active ceramides (CeraVe) moisturizing creamIndication s:Pruritus APPLY TOPICALLY NEEDED FOR DRY SKIN. 453 g 2 07/18/20 23 Active tadalafil (Cialis) 10 MG tablet Take 1 tablet 30 minutes prior to anticipated sexual activity; do not take more than once daily 10 tablet 3 10/10/19 24 Active Alcohol Swabs (Alcohol Prep) 70 % pads TEST BLOOD SUGAR TWICE DAILY DIRECTED 100 each 11 11/09/19 24 Active triamcinolone (Kenalog) 0.1 % ointmentIndicat ions:Psoriasis Apply topically 2 times daily. 453.6 g 05/03/20 24 Active ustekinumab (Stelara) injectionIndica tions:Psoriasis Inject 1 ml q3 months 1 mL 11 05/03/20 24 Active ketoconazole (NIZOral) 2 % cream APPLY TOPICALLY TO AFFECTED AREA(S) EVERY MORNING 60 g 1 05/22/20 24 Active chlorthalidone (Hygroton) 25 MG tablet Take 1/2 tablets by mouth once daily 90 tablet 3 07/28/20 24 Active metFORMIN XR (Glucophage-XR) 500 MG 24 hr tablet TAKE 2 TABLETS BY MOUTH TWICE DAILY IN THE MORNING AND AT BEDTIME DO NOT BREAK, CRUSH, DISSOLVE OR CHEW 360 tablet 3 06/25/20 25 Active atorvastatin (Lipitor) 20 MG tablet TAKE 1 TABLET BY MOUTH AT BEDTIME 90 tablet 3 01/23/20 25 Active pioglitazone (Actos) 30 MG tabletIndicatio ns:Type 2 diabetes mellitus with hyperglycemia, without long-term current use of insulin (HCC) Take 1 tablet (30 mg) by mouth Once per day. 90 tablet 3 04/14/20 25 Active glucose blood (OneTouch Verio) test stripIndication s:Type 2 diabetes mellitus with hyperglycemia, without long-term current use of insulin (HCC) Use to check blood sugar twice daily 100 each 5 04/14/20 25 026 Active Lancets (OneTouch Delica Plus [id number]) miscIndications :Type 2 diabetes mellitus with hyperglycemia, without long-term current use of insulin ([facility]) Use to check blood sugar twice daily 100 each 5 04/14/20 25 Active losartan (Cozaar) 50 MG tabletIndicatio ns:Hypertension , unspecified type Take 1 tablet (50 mg) by mouth Once per day. 30 tablet 2 04/14/20 25 Active Tirzepatide (Mounjaro) 5 MG/0.5ML solution auto-injectorIn dications:Type 2 diabetes mellitus with hyperglycemia, without long-term current use of insulin ([facility]) Inject 5 mg under the skin 1 (one) time per week. 2 mL 3 05/16/20 25 Active Tirzepatide (Mounjaro) 2.5 MG/0.5ML solution auto-injectorIn dications:Type 2 diabetes mellitus with hyperglycemia, without long-term current use of insulin ([facility]) Inject 2.5 mg under the skin 1 (one) time per week. 2 mL 04/14/20 25 025 Discontinued Active Problems Problem Noted Date Diagnosed Date Left elbow pain 09/25/2024 Overview (09/25/2024): - Ordered XR Elbow 3+ Views Left 09/24/24 Assessment & Plan (09/25/2024 6:26 AM EST): - likely epicondylitis, possibly neuropathy (left worse than right) - activity modification - discussed about ortho referral, but he will not receive steroid injection with his current glycemic control - consider trial of gabapentin Polyarthralgia 09/25/2024 Assessment & Plan (09/25/2024 6:28 AM EST): - previously evaluated by professor of geology for possibility of psoriatic arthritis, but was reassured that it was unlikely - optimize treatment for psoriasis. If patient can use a biologic, it might improve his arthralgia. Weak urinary stream 10/12/2023 Assessment & Plan (10/12/2023 12:10 AM EDT): - Will check PSA for further evaluation Erectile dysfunction 10/11/2023 Assessment & Plan (10/11/2023 11:58 PM EDT): - Take Tdalafil 10 mg as needed. Metabolic dysfunction-associ ated steatotic liver disease (MASLD) 08/08/2023 Assessment & Plan (09/25/2024 6:22 AM EST): - Last liver test: Aug 2024 - Last imaging: US (no elastography) in Jul 2023 showing mild splenomegaly and hepatic steatosis. No focal lesion. - FIB4 index: 1.07 - GI: - continue working on lifestyle modifications - continue surveillance study Assessment & Plan (08/11/2023 12:09 PM EST): [...] - Nerve Conduction Test in 05/2022, showed Okqezkca-rc-Aulzod bilateral carpal tunnel syndrome - s/p bilateral carpal tunnel release -Right 12/05/22 -Left 01/02/23 -improved symptoms; follow up with ortho prn Assessment & Plan (01/19/2023 5:37 AM EDT): - Nerve Conduction Test in 05/2022, showed Qzezdtxb-ho-Djdvao bilateral carpal tunnel syndrome s/p bilateral carpal tunnel release -Right 12/05/22 -Left 01/02/23 -follow with Orthopedist Assessment & Plan (10/24/2022 5:20 PM EDT): Nerve Conduction Test in 05/2022, showed Qvmznhgo-kl-Tojkvg bilateral carpal tunnel syndrome -Continue wearing braces -Judicious use of gabapentin -Referral to Hand Specialist placed AUDELIA (obstructive sleep apnea) 10/24/2022 Assessment & Plan (09/25/2024 6:23 AM EST): -previously following with [facility] -Sleep Study on 10/17/22 confirmed AUDELIA -Patient has difficulty using CPAP due to discomfort -motivated to work on lifestyle modifications and using GLP1RA to lose weight Assessment & Plan (10/10/2023 6:24 AM EDT): [...] tiny posterior calcaneal spur. - seen by rotary dump operator - pt received shoe inserts and currently pain-free - Pt will benefit from Diabetic Shoes Assessment & Plan (11/05/2022 4:16 PM EDT): Likely plantar fasciiitis - evaluate with XR - refer to Relationship Executive -Pt will benefit from Diabetic Shoes Epigastric pain 10/23/2017 Moderate major depression, single episode (CMS/H CC) 05/03/2017 Assessment & Plan (09/24/2024 8:56 AM EST): -[facility] provider: JENNY, therapist Diana Balderrama -pt is interested in trying a new antidepressant -previously tried venlafaxine, which was discontinued due to ineffectiveness -continue sertraline 25 mg daily. -continue exercising at gym, which seems to help with his symptoms -able to contract his safety today Assessment & Plan (08/11/2023 12:07 PM EST): -[facility] provider: ehsan ALVARADO -pt is interested in trying a new antidepressant -previously tried venlafaxine, which was discontinued due to ineffectiveness -continue sertraline 25 mg daily. -continue exercising at gym, which seems to help with his symptoms -able to contract his safety today Assessment & Plan (06/24/2023 7:04 AM EST): -[facility] provider: JENNY, therapist Diana Balderrama -pt is interested in [...] today HTN (hypertension) 02/17/2017 Assessment & Plan (09/25/2024 6:24 AM EST): Goal BP <140/90 per JNC-8, < 130/80 per ACC/AHA guideline -BP not at goal today (consecutively) -Co-managed with our pharmacist, Florian Rojas Rph, PharmD, through [facility] -Continue working on lifestyle modifications -continue monitoring BP at home, advised to take a photo of BP monitor screen or write the numbers. -continue Losartan 100mg daily -continue chlorthalidone 12.5 [...] today (consecutively) -Co-managed with our pharmacist, Florian Rojas, Michael, PharmD, through [facility] -Continue working on lifestyle [...] -continue working on lifestyle modifications -Refer to [facility] Assessment & Plan (11/05/2022 4:07 PM EDT): Goal BP <140/90 per JNC-8, < 130/80 per ACC/AHA guideline -BP not at goal today -Continue working on lifestyle modifications -continue monitoring BP at home -continue Losartan 100mg daily -continue working on lifestyle modifications -Refer to [facility] Type 2 diabetes mellitus 02/17/2017 Assessment & Plan (09/25/2024 6:30 AM EST): - A1c 12.6% on 09/24/24, 9.2% on 06/14/23 - Patient was unable to take medications due to insurance problem -Continue Metformin 1000 mg BID -Continue dulaglutide to 3.0 mg weekly, titrate up as tolerate. Consider switching to semaglutide or tirzepatide. -Consider SGLT2i Last Eye Exam: 07/19/23 Eye and Lasik. Mild non-proliferative diabetic retinopathy bilateral. Recommended to schedule appointment Last Foot Exam: 09/24/24 Last Microalbumin Test: 09/24/24 Last Lipid profile: 09/24/24 Follow up in 3 mo or sooner [...] will update Psoriasis 02/01/2017 Assessment & Plan (09/25/2024 6:33 AM EST): -Followed by [facility], last visit in Apr 2024 -Tried Triamcinolone 0.1% cream, 80g compounded with 1lb of CeraVe after showers and before bedtime. -Continue Triamciniolone ointment as prescribed -Previously prescribed ustekunimab injection. Not using currently due to PA requirement. -Evaluated by professor of geology for possible arthritis. Unlikely to have psoriatic arthritis. Elevated ESR and CRP likely due to obesity. Assessment & Plan (10/12/2023 12:00 AM EDT): Following with Classroom Assistant -Continue Triamcinolone 0.1% cream, 80g compounded with 1lb of CeraVe after showers and before bedtime. -Continue ustekunimab injection as prescribed -Evaluated by professor of geology for possible arthritis. Unlikely to have psoriatic arthritis. Elevated ESR and CRP likely due to obesity. Assessment & Plan (08/11/2023 12:07 PM EST): -Following with Classroom Assistant -Continue Triamcinolone 0.1% cream, 80g compounded with 1lb of CeraVe after showers and before bedtime. -Continue ustekunimab injection as prescribed -Evaluated by professor of geology for possible arthritis. Unlikely to have psoriatic arthritis. Elevated ESR and CRP likely due to obesity. Assessment & Plan (06/24/2023 7:05 AM EST): -Following with Classroom Assistant -Continue Triamcinolone 0.1% cream, 80g compounded with 1lb of CeraVe after showers and before bedtime. -Continue ustekunimab injection as prescribed -Refer to professor of geology to evaluate for possible arthritis. Pt is on Stelala, but will check ESR and CRP. Assessment & Plan (01/19/2023 5:43 AM EDT): -Following with Classroom Assistant -Continue Triamcinolone 0.1% cream, 80g compounded with 1lb of CeraVe after showers and before bedtime. Assessment & Plan (11/05/2022 4:18 PM EDT): -Following with Dr. Rodriguez / Derm clinic -Continue Triamcinolone 0.1% cream, 80g compounded with 1lb of CeraVe after showers and before bedtime. Resolved Problems Problem Noted Date Diagnosed Date Resolved Date Dysuria 10/12/2023 09/25/2024 Assessment & Plan (10/12/2023 12:10 AM EDT): - Will check PSA for further evaluation - Ordered urinalysis w/ culture Numbness of hand 10/23/2022 10/24/2022 Paronychia of toe 12/22/2017 01/19/2023 Obesity (BMI 30-39.9) 02/01/20172022 Assessment & Plan (10/24/2022 5:19 PM EDT): Work on lifestyle modifications Encounters Date Type Department Care Team Description 05/16/2025 Refill [facility] [address] [place] [address] Florian Rojas, PharmD Type 2 diabetes mellitus with hyperglycemia, without long-term current use of insulin ([facility]) 04/14/2025 Travel 03/21/2025 Telephone [facility] [address] [place] [address] Florian Rojas, PharmD 03/21/2025 Telephone [facility] [address] [place] [address] Maria A Chavez MD Med Refill 02/25/2025 Telephone [facility] [address] [place] [phone] Maria A Chavez MD from Last 3 Months Immunizations Immunization Administration Dates Next Due Hep A, Adult 09/13/2023,01/18/2023 Hep B, adult 07/19/2023,02/22/2023,01/18/2023 Pfizer Covid-19 Vaccine 12+ 08/08/2023 Pneumococcal Conjugate PCV 20 08/08/2023 Tdap 02/01/2017 Social History Tobacco Use Types Packs/Day Years Used Date Smoking Tobacco: Former Cigarettes 2 10 1 988 - 1997 Passive Smoke Exposure: Never Smokeless Tobacco: Never Tobacco Cessation:Counseling Given: Not Answered Depression Answer Date Recorded Patient Health Questionnaire-9 Score 9 09/25/2024 Patient Health Questionnaire-9 Score 9 09/25/2024 Last PHQ-9: Questionnaire Data Not on file 0 09/25/2024 Housing Stability Answer Date Recorded What is your housing situation today? I have real jack 09/25/[address] you li ve. Do you have problems with any of the following? None of the above 09/25/2024 Food Insecurity Answer Date Recorded Within the past 12 months, y ou worried that your food would run out before you got money to buy more: Never True 09/25/2024 Within the past 12 months,th e food you bought just didn't last and you didn't have enough money to get more: Never True Transportation Answer Date Recorded In the past 12 months, has l ack of transportation kept you from medical appts, meetings, work or from getting things needed for daily living? No 09/25/2024 Utilities Answer Date Recorded In the past 12 months, has t he electric, gas, oil or water company threatened to shut off services in your home? No 09/25/2024 Depression Answer Date Recorded Patient Health Questionnaire-2 Score 2 09/25/2024 Internet Access Answer Date Recorded Internet Access Q1 Yes 09/25/2024 Internet Access Q2 Not on file 09/25/2024 Sex and Gender Information Value Date Recorded Sex Assigned at Male 05/30/2022 10:31 AM EDT Legal Sex Male 10:31 AM EDT Gender Identity Male 05/30/2022 10:31 AM EDT Sexual Orientation Straight 05/30/2022 10 :31 AM EDT Last Filed Vital Signs Vital Sign Reading Time Taken Comments Blood Pressure 138/68 04/14/2025 12:23 PM EDT Pulse 77 04/14/2025 11:44 AM EDT Temperature 36.3 C (97.3 F) 09/24/2024 10:03 AM EST Respiratory Rate 15 09/24/2024 10:03 AM EST Oxygen Saturation 99% 09/24/2024 10:03 AM EST Inhaled Oxygen Concentration - - Weight 128 kg (282 lb 12.8 oz) 09/24/2024 10:03 AM EST Height 165.1 cm (5' 5 ) 09/24/2024 10:03 AM EST Body Mass Index 47.06 09/24/2024 10:03 AM EST Plan of Treatment Upcoming Encounters Date Type Department Care Team (Late st Contact Info) Description 05/20/2025 11:30 AM EDT Office Visit [facility] [address] [place] [phone] Maria A Chavez MD [address] [place] [address] 06/20/2025 3:30 PM EST Medication Management [facility] [address] [place], [place] [phone] Florian Rojas, PharmD [address] [place], [place] [phone] Health Maintenance Due Date Last Done Comments CT Colonography 1974 FIT DNA/Cologuard 1974 FIT 1974 FOBT 1974 Sigmoidoscopy 1974 Disability Screening 1974 Eye Exam 1984 Family Planning (PISQ) 1989 Zoster Vaccines (1 of 2) 2024 Depression Monitoring 03/25/2025 09/25/2024, 025 COVID-19 Vaccine (2 - season) 2025 08/08/2023 Influenza Vaccine (#1) 2025 Diabetes: Hemoglobin A1C 07/14/2025 025, 09/24/2024, 09/04/2024, Additional history exists Alcohol/Substance Use Screening 09/24/2025 09/24/2024 Diabetes: Foot Exam 09/24/2025 09/24/2024, 09/24/2024, 09/24/2024, Additional history exists Diabetes: Urine Protein Screening 09/24/2025 09/24/2024, 06/14/2023, 01/18/2023, Additional history exists Lipid Panel 09/24/2025 09/24/2024, 05/31, 10/24/2022, Additional history exists Tobacco Screening 09/24/2025 09/24/2024 SDOH Screening 09/25/2025 09/25/2024 DTaP/Tdap/Td Vaccines (2 - Td or Tdap) 02/01/2027 02/01/2017 Colonoscopy 07/18/2032 07/18/2022 Colorectal Cancer Screening 07/18/2032 RSV Patients and Patients Aged 60 years or older (1 - 1-dose 75+ series) 2049 Hepatitis C Screening Completed 11/09/2022, 022 HIV Screening Completed 01/18/2023, 12/13/2021 Hepatitis B Vaccines Completed 07/19/2023, 02/22/2023, 01/18/2023 Pneumococcal Vaccine: 50+ Years Completed 08/08/2023 Hepatitis A Vaccines Completed 09/13/2023, 01/19/20 HIB Vaccines Aged Out No longer eligi ble based on patient's age to complete this topic HPV Vaccines Aged Out No longer eligi ble based on patient's age to complete this topic IPV Vaccines Aged Out No longer eligi ble based on patient's age to complete this topic Meningococcal B Vaccine Aged Out No l onger eligible based on patient's age to complete [...] Author Blood Pressure < 140/90 Blood Pressure 138/68(2024 12:23 PM EDT) No Florian Rojas, Esa Hemoglobin A1c < 7 Result Component 13.8(04/14/20 11:45 AM EDT) No Florian Rojas PharmD Procedures Procedure Name Priority Date/Time Associated Diagnosis Comments POCT GLYCATED HEMOGLOBIN, TOTAL Routine 04/14/2025 11:45 AM EDT Type 2 diabetes mellitus with hyperglycemia, without long-term current use of insulin ([facility]) ALBUMIN, RANDOM URINE W/CREATININE Routine 09/24/2024 10:47 AM EST LIPID PANEL, STANDARD Routine 09/24/2024 10:47 AM EST HIV 1/2 ANTIGEN/ANTIBODY, FOURTH GENERATION W/RFL Routine 01/18/2023 11:06 AM EDT Routine screening for STI (sexually transmitted infection) HEPATITIS C AB W/REFL TO HCV RNA, QN, PCR Routine 11/09/2022 8:14 AM EDT Transaminitis HM COLONOSCOPY Routine 07/18/2022 from Last 3 Months or Most Recently Relevant to Health Maintenance Results * (ABNORMAL) POCT Hgb A1c (04/14/2025 11:45 AM EDT) Hemoglobin A1C 13.8(A) 4.0 - 5.7 % QC Media Lot # [id number] Lot# Expiration Date ,[id number] Blood 04/14/2025 11:4 5 AM EDT Maria A Chavez MD POINT OF CARE TEST ENTER/EDIT OR DERABLES Final Result * Albumin, Random Urine W/Creatinine (09/24/2024 10:47 AM EST) Creatinine, Urine 216.86 mg/dL [facility] Microalbumin Urine 44.0 mg/L [facility] Microalbum Creatinine Ratio Ur 20.2 <30 ug/mg cr [facility] Comment:Albumin/Creatinine R atio Reference Ranges: Normal: < 30 ug/mg creatinine Microalbuminuria: 30 - 300 ug/mg creatinineClinical Albuminuria: > 300 ug/mg creatinine 09/24/2024 10:4 7 AM EST 09/24/2024 11:20 AM EST us Maria A Chavez MD LAB URINE ORDERABLES Final Resul t [facility] [address] [place] [phone] * (ABNORMAL) Lipid Panel, Standard (09/24/2024 10:47 AM EST) Triglycerides 160(H) <150 mg/dL [facility] Comment:Desirable Triglyceri de: less than 150 mg/dLBorderline High Triglyceride 150-199 mg/dLHigh Triglyceride: 200-499 mg/dLVery High Triglyceride: greater than or equal to 5OO mg/dL Cholesterol 95 <200 mg/dL [facility] Comment:Desirable Cholestero l: less than 200 mg/dLBorderline High Cholesterol: 200-239 mg/dLHigh Cholesterol: greater than 239 mg/dL LDL Cholesterol Calculated 32 <100 mg/dL [facility] Comment:Desirable LDL: less than 100 mg/dLNear Optimal/Above Optimal LDL: 110- 129 mg/dLBorderline High LDL: 130-159 mg/dLHigh LDL: 160-189 mg/dLVery High LDL: greater than or equal to 190 mg/dL HDL Cholesterol 31(L) >40 mg/dL [facility] Comment:Desirable HDL: great er than 40 mg/dL Note: This HDL assay may give artificially low results in patients with liver disease. 09/24/2024 10:4 7 AM EST 09/24/2024 11:35 AM EST us Maria A Chavez MD LAB BLOOD ORDERABLES Final Resul t [facility] [address] [place] [address] [phone] * HIV-1/2 Antigen and Antibodies, Fourth Generation, with Reflexes (01/18/2023 11:06 AM EDT) HIV Antigen/Antibody, 4th Generation NON-REAC TIVE NON-REAC TIVE [facility] Comment: HIV-1 antigen and HIV-1/HIV-2 antibodies were not detected. There is no laboratory evidence of HIV infection. PLEASE NOTE: This information has been disclosed to you from records whose confidentiality may be protected by state law. If your state requires such protection, then the state law prohibits you from making any further disclosure of the information without the specific written consent of the person to whom it pertains, or as otherwise permitted by law. A general authorization for the release of medical or other information is NOT sufficient for this purpose. For additional information please refer to http://education.Groupize.com.PF Changs/faq/HBP801 (This link is being provided for informational/ educational purposes only.) The performance of this assay has not been clinically validated in patients less than 2 years old. Blood Venous blood specimen / Unknown 01/18/2023 11:06 AM EDT 01/18/2023 11:07 AM EDT Narrative [facility] - 01/19/2023 7:14 PM EDT FASTING:NO FASTING: NO Maria A Chavez MD LAB BLOOD ORDERABLES Final Resul t Performing Organization Address [facility] Co de Phone Number [employer] [address] [place] [address], [place] [phone] [employer] [address] [place] [phone] * Hepatitis C Antibody with Reflex to HCV, RNA, Quantitative, Real-Time PCR (11/09/2022 8:14 AM EDT) Hepatitis C Antibody NON-REACT ALINA NON-REACT ALINA [facility] Index 0.10 <1.00 [facility] Comment: HCV antibody was non-reactive. There is no laboratory evidence of HCV infection. In most cases, no further action is required. However, if recent HCV exposure is suspected, a test for HCV RNA (test code 45983) is suggested. For additional information please refer to http://Re[employer] Compass.Alerts/faq/QKK35l3 (This link is being provided for informational/ educational purposes only.) Blood Venous blood specimen / Unknown 11/09/2022 8:14 AM EDT 11/09/2022 8:15 AM EDT Narrative [facility] - 11/10/2022 1:19 AM EDT FASTING:YES FASTING: YES Maria A Chavez MD LAB BLOOD ORDERABLES Final Resul t Performing Organization Address [facility]/ZIP Co de Phone Number [employer] [address] [place] [address], [place] [phone] [employer] [address] [place] [phone] * Hm Colonoscopy (07/18/2022) [facility] Signature Colonoscopy Normal Normal Jonathan Harvey MD HEALTH MAINTENANCE Edited Result - Final from Last 3 Months or Most Recently Relevant to Health Maintenance Insurance [employer] PPO [employer] Care Teams Assisted Living Manager Relationship Specialty Start Date End Date Maria A Chavez MD [address] [place] [phone] PCP - General Family Medicine 06/20/22 Florian Rojas, PharmD [address] [place] [phone] Pharmacist Internal Medicine 05/03/23
--- OUTSIDE RECORDS SUMMARY | 2025-05-16 14:51 | XMS_ITS | Encounter Summary ---
Author Organization [employer] Address [address] [place] [address] [address], [place] [address] Care Team Providers Care Wet Suit Gluer Name Role Phone Maria A Chavez MD Primary Care Provider [phone] Florian Rojas PharmD Unavailable [phone] Reason for Visit * Reason Comments Med Refill Encounter Details Date Type Department Care Team ([facility] st Contact Info) Description 05/16/2025 Refill [facility] [address] [place], [place] [phone] Florian Rojas, PharmD 230 [place] [address] Type 2 diabetes mellitus with hyperglycemia, without long-term current use of insulin (HCC) Social History Tobacco Use Types Packs/Day Years Used Date Smoking Tobacco: Former Cigarettes 2 10 1 988 - 1997 Passive Smoke Exposure: Never Smokeless Tobacco: Never Depression Answer Date Recorded Patient Health Questionnaire-9 [...] encounter Miscellaneous Notes * Telephone Encounter - Florian Rojas PharmD - 05/16/2025 1:39 PM EDT Patient requested refill for Mounjaro after completing 4 weeks of 2.5 mg dose. Pharmacist spoke to patient who reports tolerating well. Denies JOSÉ MANUEL including NVD. Reports noticing change to appetite. Patient agreeable to increase dose to 5 mg as indicated. Prescription sent to [facility] pharmacy. Patient counseled on the possibility of experiencing GI JOSÉ MANUEL (nausea, vomiting, diarrhea, constipation) during titration. Patient reminded to avoid greasy/spicy foods, eater smaller more frequent meals, not eating beyond sensation of fullness , and prioritize nutrient dense food options. Patient verbalized understanding. Patient agrees to keep CDTM visit 06/20/2025. documented in this encounter Plan of Treatment Upcoming Encounters Date Type Department Care Team (Late st Contact Info) Description 05/20/2025 11:30 AM EDT Office Visit [facility] [address] [place] [address] Maria A Chavez MD [address] [place] [address] 06/20/2025 3:30 PM EST Medication Management [facility] [address] [place] [address] Florian Rojas PharmD [address] [place] [address] documented as of this encounter Goals Goal Patient Goal Type Associated Problems Recent Progress Patient-Stated? Author Blood Pressure < 140/90 Blood Pressure 138/68(2024 12:23 PM EDT) No Florian Rojas PharmD Hemoglobin A1c < 7 Result Component 13.8(04/14/20 11:45 AM EDT) No Florian Rojas PharmD documented as of this encounter Visit Diagnoses Diagnosis Type 2 diabetes mellitus with hyperglycemia, without long-term current use of insulin (HCC) documented in this encounter Additional Health Concerns Assessment Noted Time PHQ-9 Depression Total Score: 9 09/25/19 2:42 PM EST documented as of this encounter Care Teams Wet Suit Gluer Relationship Specialty Start Date End Date Maria A Chavez MD [address] [place] [phone] PCP - General Family Medicine 06/20/22 Florian Rojas PharmD [address] [place] [address] Pharmacist Internal Medicine 05/03/23 documented as of this encounter
--- OUTSIDE RECORDS SUMMARY | 2025-05-16 14:51 | XMS_ITS | Encounter Summary ---
Author Organization [employer] Address [address] [place] [address] Care Team Providers Care Visual Specialist Name Role Phone Maria A Chavez MD Primary Care Provider [phone] Florian Rojas PharmD Unavailable [phone] Reason for Visit * Reason Comments Med Refill Encounter Details Date Type Department Care Team ([facility] st Contact Info) Description 07/25/2024 Refill [facility] [address] [place], [place] [phone] Maria A Chavez MD 230 [place], [place] [phone] Social History Tobacco Use Types Packs/Day Years [...] Description 05/20/2025 11:30 AM EDT Office Visit [facility] [address] [place] [address] Maria A Chavez MD [address] [place] [address] [phone] 06/20/2025 3:30 PM EST Medication Management [facility] [address] [place] [address] [phone] Florian Rojas PharmD [address] [place] [address] documented as of this encounter Goals Goal Patient Goal Type Associated Problems Recent Progress Patient-Stated? Author Blood Pressure < 140/90 Blood Pressure 138/68(2024 12:23 PM EDT) No Florian Rojas PharmD Hemoglobin A1c < 7 Result Component 13.8(04/14/20 11:45 AM EDT) No Florian Rojas PharmD documented as of this encounter Visit Diagnoses Not on filedocumented in this encounter Care Teams Visual Specialist Relationship Specialty Start Date End Date Maria A Chavez MD [address] [place] [address] [phone] PCP - General Family Medicine 06/20/22 Florian Rojas PharmD [address] [place] [address] [phone] Pharmacist Internal Medicine 05/03/23 documented as of this encounter
--- OUTSIDE RECORDS SUMMARY | 2025-05-16 14:51 | XMS_ITS | Encounter Summary ---
Author Organization [employer] Address [address] [place] [address] Care Team Providers Care Manager Administrative Name Role Phone Maria A Chavez MD Primary Care Provider [phone] Florian Rojas PharmD Unavailable [phone] Reason for Visit * Reason Comments Med Refill Encounter Details Date Type Department Care Team ([facility] st Contact Info) Description 09/13/2023 Refill [facility] 230 [place], [place] [phone] Maria A Chavez MD 230 [place], [place] [phone] Social History Tobacco Use Types Packs/Day Years [...] Description 05/20/2025 11:30 AM EDT Office Visit [facility] MED[facility]INE [address] [place] [phone] Maria A Chavez MD [address] [place] [address] [phone] 06/20/2025 3:30 PM EST Medication Management [facility] [address] [place] [address] [phone] Florian Rojas PharmD [address] [place] [address] documented as of this encounter Goals Goal Patient Goal Type Associated Problems Recent Progress Patient-Stated? Author Blood Pressure < 140/90 Blood Pressure 138/68(2024 12:23 PM EDT) No Florian Rojas PharmD Hemoglobin A1c < 7 Result Component 13.8(04/14/20 11:45 AM EDT) No Florian Rojas PharmD documented as of this encounter Visit Diagnoses Not on filedocumented in this encounter Care Teams Manager Administrative Relationship Specialty Start Date End Date Maria A Chavez MD [address] [place] [address] [phone] PCP - General Family Medicine 06/20/22 Florian Rojas PharmD [address] [place] [address] [phone] Pharmacist Internal Medicine 05/03/23 documented as of this encounter
--- OUTSIDE RECORDS SUMMARY | 2025-05-16 14:51 | XMS_ITS | Encounter Summary ---
Author Organization [employer] Address [address] [facility] [place] [address] Care Team Providers Care Latex Thread Machine Operator Name Role Phone Maria A Chavez MD Primary Care Provider [phone] Florian Rojas PharmD Unavailable [phone] Reason for Visit * Reason Comments Med Refill Encounter Details Date Type Department Care Team ([facility] st Contact Info) Description 06/28/2024 Refill [facility] 230 [place], [place] [phone] Maria A Chavez MD 230 [place] [address] Neuropathy Social History Tobacco Use Types Packs/Day Years Used Date Smoking Tobacco: Former Cigarettes 2 10 - 1997 Passive Smoke Exposure: Never Smokeless [...] Description 05/20/2025 11:30 AM EDT Office Visit [facility] [address] [place] [phone] Maria A Chavez MD [address] [place] [address] 06/20/2025 3:30 PM EST Medication Management [facility] [address] [place] [address] [phone] Florian Rojas PharmD [address] [place] [address] [phone] documented as of this encounter Goals Goal Patient Goal Type Associated Problems Recent Progress Patient-Stated? Author Blood Pressure < 140/90 Blood Pressure 138/68(2024 12:23 PM EDT) No Florian Rojas PharmD Hemoglobin A1c < 7 Result Component 13.8(04/14/20 11:45 AM EDT) No Florian Rojas PharmD documented as of this encounter Visit Diagnoses Diagnosis Neuropathy Mononeuritis of unspecified site documented in this encounter Care Teams Latex Thread Machine Operator Relationship Specialty Start Date End Date Maria A Chavez MD [address] [place] [address] [phone] PCP - General Family Medicine 06/20/22 Florian Rojas PharmD [address] [place] [address] [phone] Pharmacist Internal Medicine 05/03/23 documented as of this encounter
--- OUTSIDE RECORDS SUMMARY | 2025-05-16 14:51 | XMS_ITS | Encounter Summary ---
Author Organization [employer] Address [address] [place] [address] Care Team Providers Care Painter Interior Finish Name Role Phone Maria A Chavez MD Primary Care Provider [phone] Florian Rojas PharmD Unavailable [phone] Reason for Referral * Consultation (Routine) - Authorized Specialty Diagnoses / Procedures Referred By Contac t Referred To Contact Pharmacy Diagnoses Type 2 diabetes mellitus with hyperglycemia, without long-term current use of insulin (HCC) Hypertension, unspecified type Maria A Chavez MD [address] [place] [address] Phone: tel: fax: Referral ID Status Reason Start Date Expiration Date Visits Requested Visits Authorized [id number] Authorized Consult and Treat 11/01/2024 11/01/2025 6 6 Encounter Details Date Type Department Care Team (Late st Contact Info) Description 11/01/2024 Orders Only [facility] [address] [place] [address] [phone] Maria A Chavez MD 230 [place], [place] [phone] Type 2 diabetes mellitus with hyperglycemia, without [...] Description 05/20/2025 11:30 AM EDT Office Visit [facility] [address] [place] [address] Maria A Chavez MD [address] [place] [phone] 06/20/2025 3:30 PM EST Medication Management [facility] [address] [place] [phone] Florian Rojas, PharmD [address] [place] [address] Scheduled Referrals Name Type Priority Associated Diagnoses Orde r Schedule Referral to Pharmacy CDTM Outpatient Referral Routine Type 2 diabetes mellitus with hyperglycemia, without long-term current use of insulin ([facility]) Hypertension, unspecified type Ordered: 11/01/2024 documented as of this encounter Goals Goal [...] hyperglycemia, without long-term current use of insulin ([facility])- Primary Hypertension, unspecified type documented in this encounter Additional Health Concerns Assessment Noted Time PHQ-9 Depression Total Score: 9 09/25/19 25 2:42 PM EST documented as of this encounter Care Teams Painter Interior Finish Relationship Specialty Start Date End Date Maria A Chavez MD 230 [place] [address] PCP - General Family Medicine 06/20/22 Florian Rojas PharmD 230 [place] [address] Pharmacist Internal Medicine 05/03/23 documented as of this encounter
--- OUTSIDE RECORDS SUMMARY | 2025-05-16 14:51 | XMS_ITS | Encounter Summary ---
Author Organization [employer] Address [address] [place] [address] Care Team Providers Care Die Forger Name Role Phone Maria A Chavez MD Primary Care Provider [phone] Florian Rojas PharmD Unavailable Reason for Visit * Reason Comments Med Refill Encounter Details Date Type Department Care Team ([facility] st Contact Info) Description 07/18/2023 Refill [facility] 230 [place], [place] [phone] Name, MD Franck 230 [place] [address] Essential hypertension Social History Tobacco Use Types [...] Description 05/20/2025 11:30 AM EDT Office Visit [facility] MEDICINE [address] [place] [phone] Maria A Chavez MD [address] [place] [address] [phone] 06/20/2025 3:30 PM EST Medication Management [facility] [address] [place] [address] [phone] Florian Rojas PharmD [address] [place] [address] [phone] documented as of this encounter Goals Goal Patient Goal Type Associated Problems Recent Progress Patient-Stated? Author Blood Pressure < 140/90 Blood Pressure 138/68(2024 12:23 PM EDT) No Florian Rojas PharmD Hemoglobin A1c < 7 Result Component 13.8(04/14/20 11:45 AM EDT) No Florian Rojas PharmD documented as of this encounter Visit Diagnoses Diagnosis Essential hypertension Unspecified essential hypertension documented in this encounter Care Teams Die Forger Relationship Specialty Start Date End Date Maria A Chavez MD [address] [place] [address] [phone] PCP - General Family Medicine 06/20/22 Florian Rojas PharmD [address] [place] [address] [phone] Pharmacist Internal Medicine 05/03/23 documented as of this encounter
--- OUTSIDE RECORDS SUMMARY | 2025-05-16 14:51 | XMS_ITS | Encounter Summary ---
Author Organization [employer] Address [address] [place] [address] Care Team Providers Care Animal Care Worker Name Role Phone Maria A Chavez MD Primary Care Provider [phone] Florian Rojas PharmD Unavailable [phone] Reason for Visit * Reason Comments Med Refill Encounter Details Date Type Department Care Team ([facility] st Contact Info) Description 07/18/2023 Refill [facility] 230 [place], [place] [phone] Libby Rodriguez MD 230 [place] [address] Pruritus Social History Tobacco Use Types Packs/Day Years Used Date Smoking Tobacco: Former Cigarettes 2 10 1997 Passive Smoke Exposure: Never Smokeless Tobacco: [...] 11:30 AM EDT Office Visit [facility] [address] [place] [address] Maria A Chavez MD [address] [place] [address] [phone] 06/20/2025 3:30 PM EST Medication Management [facility] [address] [place] [address] [phone] Florian Rojas PharmD [address] [place] [address] [phone] documented as of this encounter Goals Goal Patient Goal Type Associated Problems Recent Progress Patient-Stated? Author Blood Pressure < 140/90 Blood Pressure 138/68(2024 12:23 PM EDT) No Florian Rojas PharmD Hemoglobin A1c < 7 Result Component 13.8(04/14/20 11:45 AM EDT) No Florian Rojas PharmD documented as of this encounter Visit Diagnoses Diagnosis Pruritus Unspecified pruritic disorder documented in this encounter Care Teams Animal Care Worker Relationship Specialty Start Date End Date Maria A Chavez MD [address] [place] [address] [phone] PCP - General Family Medicine 06/20/22 Florian Rojas PharmD [address] [place] [address] [phone] Pharmacist Internal Medicine 05/03/23 documented as of this encounter
--- OUTSIDE RECORDS SUMMARY | 2025-05-16 14:51 | XMS_ITS | Encounter Summary ---
Author Organization [employer] Address [address] [place] [address] Care Team Providers Care Detention Worker Name Role Phone Maria A Chavez MD Primary Care Provider [phone] Florian Rojas PharmD Unavailable [phone] Reason for Visit * Reason Comments Med Refill Encounter Details Date Type Department Care Team ([facility] st Contact Info) Description 09/24/2024 Refill [facility] 230 [place], [place] [phone] Florian Rojas, PharmD 230 [place] [address] Type 2 diabetes mellitus with hyperglycemia, without long-term current use of insulin ([facility]) Social History Tobacco Use Types Packs/Day Years Used Date Smoking Tobacco: Former Cigarettes 2 10 1 8 - 1997 Passive Smoke Exposure: Never Smokeless [...] AM EDT documented as of this encounter Functional Status * Over the past 2 weeks, how often have you been bothered by any of the following problems? Question Answer Date of Assessment Author Patient Health Questionnaire -2 Score 2 09/25/2024 2:42 PM Lisa Landers MA * Little interest or pleasure in doing things Answer Date of Assessment Author Several days 09/25/2024 2:42 PM Ju Landers MA * Feeling down, depressed, or hopeless Answer Date of Assessment Author Several days 09/25/2024 2:42 PM Ju Landers MA * Trouble falling or staying asleep, or sleeping too much Answer Date of Assessment Author Not at all 09/25/2024 2:42 PM Ju Landers MA * Feeling tired or having little energy Answer Date of Assessment Author Not at all 09/25/2024 2:42 PM Ju Landers [place] * Poor appetite or overeating Answer Date of Assessment Author Nearly every day 09/25/2024 2:42 PM Ju Landers MA * Feeling bad about yourself - or that you are a failure or have let yourself or your family down Answer Date of Assessment Author Nearly every day 09/25/2024 2:42 PM Ju Landers MA * Trouble concentrating on things, such as reading the newspaper or watching television Answer Date of Assessment Author Several days 09/25/2024 2:42 PM Ju Landers MA * Moving or speaking so slowly that other people could have noticed? Or the opposite - being so fidgety or restless that you have been moving around a lot more than usual. Answer Date of Assessment Author Not at all 09/25/2024 2:42 PM Ju Landers MA * Thoughts that you would be better off or hurting yourself in some way Answer Date of Assessment Author Not at all 09/25/2024 2:42 PM Ju Landers MA * Patient Health Questionnaire-9 Score Answer Date of Assessment Author 9 09/25/2024 2:42 PM Ju Landers MA * How difficult have these problems made it for you to do your work, take care of things at home, or get along with other people? Answer Date of Assessment Author Not difficult at all 09/25/2024 2:42 PM Ju Sauceda MA * Over the last 2 weeks, how often have you been bothered by any of the following problems? Question Answer Date of Assessment Author Feeling nervous, anxious, or on edge 3 09/25/2024 2:42 PM Lisa Landers MA Not being able to stop or control worrying 3 09/25/2024 2:42 PM Lisa Landers MA Worrying too much about different things 3 09/25/2024 2:42 PM Lisa Landers MA Trouble relaxing 3 09/25/2024 2:42 PM Ju Bustos MA Being so restless that it is hard to sit still 3 09/25/2024 2:42 PM Lisa Landers MA Becoming easily annoyed or irritable 3 09/25/2024 2:42 PM Lisa Landers MA Feeling afraid as if somethi ng awful might happen 3 09/25/2024 2:42 PM Lisa Landers MA MELO-7 Total Score 21 09/25/2024 2:42 PM Ju Landers MA documented as of this encounter Plan of Treatment Upcoming Encounters Date Type Department Care Team (Late st Contact Info) Description 05/20/2025 11:30 AM EDT Office Visit [facility] [address] [place] [phone] Maria A Chavez MD Gisele [place], [place] [phone] 06/20/2025 3:30 PM EST Medication Management [facility] [address] [place] [address] [phone] Florian Rojas, Esa [address] [place] [phone] documented as of this encounter Goals Goal [...] of insulin (HCC) documented in this encounter Care Teams Detention Worker Relationship Specialty Start Date End Date Maria A Chavez MD [address] [place] [address] [phone] PCP - General Family Medicine 06/20/22 Florian Rojas PharmD [address] [place] [address] [phone] Pharmacist Internal Medicine 05/03/23 documented as of this encounter
--- OUTSIDE RECORDS SUMMARY | 2025-05-16 14:51 | XMS_ITS | Encounter Summary ---
Author Organization [employer] Address [address] [place] [address] Care Team Providers Care Summer Camp Counselor Name Role Phone Maria A Chavez MD Primary Care Provider [phone] Florian Rojas PharmD Unavailable [phone] Reason for Visit * Reason Comments Med Refill Encounter Details Date Type Department Care Team ([facility] st Contact Info) Description 07/26/2024 Refill [facility] MEDICINE 230 [place], [place] [phone] Maria A Chavez MD 230 [place], [place] [phone] Social History Tobacco Use Types Packs/Day Years [...] Description 05/20/2025 11:30 AM EDT Office Visit [facility] MEDICINE [address] [place] [address] Maria A Chavez MD [address] [place] [address] [phone] 06/20/2025 3:30 PM EST Medication Management [facility] [address] [place] [address] [phone] Florian Rojas PharmD [address] [place] [phone] documented as of this encounter Goals Goal Patient Goal Type Associated Problems Recent Progress Patient-Stated? Author Blood Pressure < 140/90 Blood Pressure 138/68(2024 12:23 PM EDT) No Florian Rojas PharmD Hemoglobin A1c < 7 Result Component 13.8(04/14/20 11:45 AM EDT) No Florian Rojas PharmD documented as of this encounter Visit Diagnoses Not on filedocumented in this encounter Care Teams Summer Camp Counselor Relationship Specialty Start Date End Date Maria A Chavez MD [address] [place] [address] [phone] PCP - General Family Medicine 06/20/22 Florian Rojas PharmD [address] [place] [address] [phone] Pharmacist Internal Medicine 05/03/23 documented as of this encounter
--- OUTSIDE RECORDS SUMMARY | 2025-05-16 14:51 | XMS_ITS | Encounter Summary ---
Author Organization [employer] Address [address] [place] [address] Care Team Providers Care Credentialing Coordinator Name Role Phone Maria A Chavez MD Primary Care Provider [phone] Florian Rojas PharmD Unavailable [phone] Reason for Referral * Consultation (Routine) - Canceled Specialty Diagnoses / Procedures Referred By Contsteven t Referred To Contact Pharmacy Diagnoses Type 2 diabetes mellitus with hyperglycemia, without long-term current use of insulin (HCC) Hypertension, unspecified type Maria A Chavez MD 230 [place] [address] Phone: tel: fax: Referral ID Status Reason Start Date Expiration Date V isits Requested Visits Authorized [id number] Canceled Consult and Treat 06/11/2024 06/11/2025 6 6 Encounter Details Date Type Department Care Team (Late st Contact Info) Description 06/11/2024 Orders Only [facility] MEDICINE 230 [place], [place] [phone] Maria A Chavez MD 230 [place], [place] [phone] Type 2 diabetes mellitus with hyperglycemia, without [...] 11:30 AM EDT Office Visit [facility] MEDICINE [address] [place] [phone] Maria A Chavez MD [address] [place] [phone] 06/20/2025 3:30 PM EST Medication Management [facility] [address] [place] [phone] Florian Rojas, PharmD [address] [place] [address] Scheduled Referrals Name Type Priority Associated Diagnoses Orde r Schedule Referral to Pharmacy CDTM Outpatient Referral Routine Type 2 diabetes mellitus with hyperglycemia, without long-term current use of insulin ([facility]) Hypertension, unspecified type Ordered: 06/11/2024 documented as [...] hyperglycemia, without long-term current use of insulin (HCC)- Primary Hypertension, unspecified type documented in this encounter Care Teams Credentialing Coordinator Relationship Specialty Start Date End Date Maria A Chavez MD [address] [place] [phone] PCP - General Family Medicine 06/20/22 Florian Rojas PharmD [address] [place] [phone] Pharmacist Internal Medicine 05/03/23 documented as of this encounter
--- OUTSIDE RECORDS SUMMARY | 2025-05-16 14:51 | XMS_ITS | Encounter Summary ---
Author Organization [employer] Address [address] [place] [address] Care Team Providers Care Screw Machine Set Up Operator Name Role Phone Maria A Chavez MD Primary Care Provider [phone] Florian Rojas PharmD Unavailable [phone] Encounter Details Date Type Department Care Team (Late st Contact Info) Description 11/05/2022 Orders Only [facility] [address] [place] [address] [phone] Maria A hCavez MD [address] [place] [address] [phone] Transaminitis (Primary Dx) Social History Tobacco Use [...] Description 05/20/2025 11:30 AM EDT Office Visit [facility] [address] [place] [address] Maria A Chavez MD [address] [place] [address] [phone] 06/20/2025 3:30 PM EST Medication Management [facility] [address] [place], [place] [phone] Florian Rojas, PharmD [address] [place], [place] [phone] documented as of this encounter Procedures Procedure [...] Hepatitis C Antibody NON-REACT ALINA NON-REACT ALINA [employer] [place] [employer] Index 0.10 <1.00 [employer] [place] [employer] Comment: HCV antibody was non-reactive. There is no laboratory evidence of HCV infection. In most cases, no further action is required. However, if recent HCV exposure is suspected, a test for HCV RNA (test code 14970) is suggested. For additional information please refer to http://education.[employer]/faq/MMR75m0 (This link is being provided for informational/ educational purposes only.) Blood Venous blood specimen / Unknown 11/09/2022 8:14 AM EDT 11/09/2022 8:15 AM EDT Narrative [facility] - 11/10/2022 1:19 AM EDT FASTING:YES FASTING: YES Maria A Chavez MD LAB BLOOD ORDERABLES Final Resul t Performing Organization Address [facility] Co de Phone Number [facility] [address] [place] [phone] [employer] [place] [employer] [address] [place] [phone] * Hepatitis A Antibody IgG (11/09/2022 8:14 AM EDT) Hepatitis A Antibody Total NON-REACT ALINA NON-REACT ALINA [employer] [place] [employer] Comment: For additional information, please refer to http://education.[employer]/faq/EVF549 (This link is being provided for informational/ educational purposes only.) Blood Venous blood specimen / Unknown 11/09/2022 8:14 AM EDT 11/09/2022 8:15 AM EDT Narrative [facility] - 11/10/2022 1:19 AM EDT FASTING:YES FASTING: YES Maria A Chavez MD LAB BLOOD ORDERABLES Final Resul t Performing Organization Address [facility] de Phone Number [facility] [address] [place] [phone] [employer] [place] [employer] [address] [place] [phone] * Hepatitis B Core Antibody, Total (11/09/2022 8:14 AM EDT) Hepatitis B Core Antibody Total NON-REACT ALINA NON-REACT ALINA [employer] [place] [employer] Blood Venous blood specimen / Unknown 11/09/2022 8:14 AM EDT 11/09/2022 8:15 AM EDT Narrative [facility] - 11/10/2022 1:19 AM EDT FASTING:YES FASTING: YES Maria A Chavez MD LAB BLOOD ORDERABLES Final Resul t Performing Organization Address City/[facility] Co de Phone Number [address] [phone] [employer] [place] [employer] [address] [place] [phone] * Hepatitis B Surface Antigen with Reflex Confirmation (11/09/2022 8:14 AM EDT) Pathologist [facility] Hepatitis B Surface Ag NON-REACT ALINA NON-REACT ALINA [employer] [place] [employer] Blood Venous blood specimen / Unknown 11/09/2022 8:14 AM EDT 11/09/2022 8:15 AM EDT Narrative [facility] - 11/10/2022 1:19 AM EDT FASTING:YES FASTING: YES Maria A Chavez MD LAB BLOOD ORDERABLES Final Resul t Performing Organization Address [facility] de Phone Number [address] [phone] [employer] [place] [employer] [address] [place] [phone] * (ABNORMAL) Hepatitis B Surface Antibody Immunity, Quantitative (11/09/2022 8:14 AM EDT) Pathologist [facility] Hepatitis B Surface Antibody Immunity, QN <5(L) > OR = 10 mIU/mL [employer] [place] [employer] Comment: PATIENT DOES NOT HAVE IMMUNITY TO HEPATITIS B VIRUS. For additional information, please refer to http://education.[employer]/faq/QSS156 (This link is being provided for informational/ educational purposes only). 11/09/2022 8:14 AM EDT 11/09/2022 8:15 AM EDT Narrative [facility] - 11/10/2022 1:19 AM EDT FASTING:YES FASTING: YES Maria A Chavez MD LAB BLOOD ORDERABLES Final Resul t Performing Organization Address [facility] de Phone Number [address] [phone] [employer] [place] [employer] [address] [place] [phone] documented in this encounter Visit Diagnoses Diagnosis Transaminitis- Primary Nonspecific elevation of levels of transaminase or lactic acid dehydrogenase (LDH) documented in this encounter Care Teams Screw Machine Set Up Operator Relationship Specialty Start Date End Date Maria A Chavez MD [address] [place], [place] [phone] PCP - General Family Medicine 06/20/22 Florian Rojas PharmD [address] [place] [address] Pharmacist Internal Medicine 05/03/23 documented as of this encounter
[2025-05-16 17:24] LABS: Alanine Aminotransferase 78 U/L (0-40); Albumin Level 4.6 g/dL (3.5-5.0); Alkaline Phosphatase 121 U/L (39-117); Anion Gap 13 (12-20); Aspartate Amino Transferase 57 U/L (5-37); Blood Urea Nitrogen 12 mg/dL (9-16); Calcium 10.0 mg/dL (8.4-10.2); Carbon Dioxide 29 mmol/L (22-29); Chloride 98 mmol/L (96-108); Cholesterol 104 mg/dL (<200); Estimated Glomerular Filt Rate > 60; HDL Cholesterol 34 mg/dL (>40); Potassium 4.3 mmol/L (3.3-5.1); Sodium 136 mmol/L (135-145); Total Protein 7.6 g/dL (6.5-8.0); Triglycerides 180 mg/dL (<150)
== END 2025-05-16 12:15 | disposition home or self-care (01) ==
LOC: HO.HHCL 12:14
PROVIDERS: PCP Family Medicine; Visit Provider Family Medicine
DX: E11.65 Type 2 diabetes mellitus with hyperglycemia (principal)
CPT/HCPCS: 36415; 80048; 80061; 80076

== ENCOUNTER 2025-05-20 12:27 | Outpatient (REF) | payer OTHER, SELFPAY ==
--- NOTE | ~2025-05-20 | XR_ITS ---
EXAMINATION: XR LUMBAR SPINE 2-3 VIEWS HISTORY: low back pain. No radiation to legs. No accident. COMPARISON: Comparison is made with the prior examination dated 07/18/2023. FINDINGS: AP, lateral, and coned down views of the lumbar spine are submitted. Osseous mineralization is normal. Five nonrib-bearing lumbar vertebral bodies are identified, maintaining normal height and alignment without evidence of fracture or spondylolisthesis. Again seen are anterior osteophytes at multiple levels. The intervertebral disc spaces are preserved. The posterior elements are intact. The visualized paraspinal soft tissues are unremarkable. XR/XR lumbar spine 2-3V IMPRESSION: Mild degenerative disc disease without change. Electronically signed by: Jonathan Ortiz MD 05/20/2025 01:45 PM EDT
--- OUTSIDE RECORDS SUMMARY | 2025-05-20 11:30 | XMS_ITS | Encounter Summary ---
Author Organization [employer] Address [address] [place] [address] Care Team Providers Care Caregivers Non Medical Name Role Phone Maria A Chavez MD Primary Care Provider [phone] Florian Rojas PharmD Unavailable Reason for Referral * Medications - Closed Specialty Diagnoses / Procedures Referred By Prudence rainey Referred To Contact Diagnoses Psoriasis Maria A Chavez MD [address] [place] [address] Phone: tel: fax: Referral ID Status Reason Start Date Expiration Date Visits Re quested Visits Authorized [id number] Closed 1 1 * Consultation (Routine) - Authorized Specialty Diagnoses / Procedures Referred By Prudence rainey Referred To Contact Family Medicine Diagnoses Psoriasis Maria A Chavez MD [address] [place] [address] Phone: tel: fax: Referral ID Status Reason Start Date Expiration Date Visits Requested Visits Authorized [id number] Authorized Specialty Services Required 05/20/2026 1 1 Encounter Details Date Type Department Care Team (Late st Contact Info) Description 05/20/2025 11:30 AM EDT Office Visit [facility] MED[facility]INE [address] [place] [address] Maria A Chavez MD [address] [place], [place] [phone] Hypertension, unspecified type (Primary Dx); Dyslipidemia; Type 2 diabetes mellitus with hyperglycemia, without long-term current use of insulin (HCC); Metabolic dysfunction-associate d steatotic liver disease (MASLD); Moderate major depression, single episode (CMS/HCC) (HCC); Psoriasis; Carpal tunnel syndrome on both sides; Chronic bilateral low back pain without sciatica Social History Tobacco Use Types Packs/Day Years Used Date Smoking Tobacco: Former Cigarettes 2 10 1 988 - 1997 Passive Smoke Exposure: Never Smokeless Tobacco: Never Depression Answer Date Recorded Patient Health Questionnaire-9 Score 0 05/20/2025 Patient Health Questionnaire-9 Score 0 05/20/2025 Last PHQ-9: Questionnaire Data Not on file 1 Housing Stability Answer Date Recorded What is [...] Answer Date Recorded Patient Health Questionnaire-2 Score 0 05/20/2025 Internet Access Answer Date Recorded Internet Access [...] Sign Reading Time Taken Comments Blood Pressure 114/68 05/20/2025 11:45 AM EDT Pulse 72 05/20/2025 11:45 AM EDT Temperature 36.9 C (98.4 F) 05/20/2025 11:45 AM EDT Respiratory Rate 18 05/20/2025 11:45 AM EDT Oxygen Saturation - - Inhaled Oxygen Concentration - - Weight 124 kg (273 lb) 05/20/2025 11:45 AM EDT Height 165.1 cm (5' 5 ) 05/20/2025 11:45 AM EDT Body Mass Index 45.43 05/20/2025 11:45 AM EDT documented in this encounter Functional Status * Over the past 2 weeks, how often have you been bothered by any of the following problems? Question Answer Date of Assessment Author Patient Health Questionnaire-2 Score 0 05/01 11:50 AM EDT Aron Moy MA * Little interest or pleasure in doing things Answer Date of Assessment Author Not at all 05/20/2025 11:50 AM EDT Roselia Moy MA * Feeling down, depressed, or hopeless Answer Date of Assessment Author Not at all 05/20/2025 11:50 AM EDT Roselia Moy MA * Trouble falling or staying asleep, or sleeping too much Answer Date of Assessment Author Not at all 05/20/2025 11:50 AM EDT Roselia Moy MA * Feeling tired or having little energy Answer Date of Assessment Author Not at all 05/20/2025 11:50 AM EDT Roselia Moy MA * Poor appetite or overeating Answer Date of Assessment Author Not at all 05/20/2025 11:50 AM EDT Roselia Moy MA * Feeling bad about yourself - or that you are a failure or have let yourself or your family down Answer Date of Assessment Author Not at all 05/20/2025 11:50 AM EDT Roselia Moy MA * Trouble concentrating on things, such as reading the newspaper or watching television Answer Date of Assessment Author Not at all 05/20/2025 11:50 AM EDT Roselia Moy MA * Moving or speaking so slowly that other people could have noticed? Or the opposite - being so fidgety or restless that you have been moving around a lot more than usual. Answer Date of Assessment Author Not at all 05/20/2025 11:50 AM EDT Roselia Moy MA * Thoughts that you would be better off or hurting yourself in some way Answer Date of Assessment Author Not at all 05/20/2025 11:50 AM EDT Roselia Moy MA * Patient Health Questionnaire-9 Score Answer Date of Assessment Author 0 05/20/2025 11:50 AM EDT Roselia Moy MA documented as of this encounter Plan of Treatment Upcoming Encounters Date Type Department Care Team (Late st Contact Info) Description 06/20/2025 3:30 PM EST Medication Management [facility] [address] [place] [address] Florian Rojas PharmD [address] [place] [address] Scheduled Referrals Name Type Priority Associated Diagnoses Orde r Schedule Referral to [facility] Derm Skin Adult Outpatient Referral Routine Psoriasis Expected: 05/20/2025 (Approximate), Expires: 05/20/2026 documented as of this encounter Goals Goal Patient Goal Type Associated Problems Recent Progress Patient-Stated? Author Blood Pressure < 140/90 Blood Pressure 114/68(2024 11:45 AM EDT) No Florian Rojas PharmD Hemoglobin A1c < 7 Result Component 13.8(04/14/20 11:45 AM EDT) No Florian Rojas PharmD documented as of this encounter Procedures Procedure Name Priority Date/Time Associated Diagnosis Comments XR LUMBAR SPINE 2-3 VIEWS Routine 05/20/2025 1:40 PM EDT Chronic bilateral low back pain without sciatica POCT GLUCOSE Routine 05/20/2025 11:51 AM EDT Type 2 diabetes mellitus with hyperglycemia, without long-term current use of insulin (HCC) documented in this encounter Results * XR Lumbar Spine 2-3 Views (05/20/2025 1:40 PM EDT) Anatomical Region Laterality Modality Spine, L-spine Radiographic Marjan ging 05/20/2025 1:40 PM EDT Narrative 05/20/2025 1:48 PM EDT [address] [address] XRay Report Signed Patient: Zeferino Varma MR#: [id number] 14 : 1975 Acct:[id number] Age/Sex: 49 / M ADM Date: 05/20/25 Loc: HO.HHCX Attending Dr: Maria A Chavez MD Ordering Physician: Maria A Chavez MD Date of Service: 05/20/25 Procedure(s): XR lumbar spine 2-3V Accession Number(s): [id number] cc: Maria A Chavez MD Reason for Exam: low back pain. No radiation to legs. No accident. EXAMINATION: XR LUMBAR SPINE 2-3 VIEWS HISTORY: low back pain. No radiation to legs. No accident. COMPARISON: Comparison is made with the prior examination dated 07/18/2023. FINDINGS: AP, lateral, and coned down views of the lumbar spine are submitted. Osseous mineralization is normal. Five nonrib-bearing lumbar vertebral bodies are identified, maintaining normal height and alignment without evidence of fracture or spondylolisthesis. Again seen are anterior osteophytes at multiple levels. The intervertebral disc spaces are preserved. The posterior elements are intact. The visualized paraspinal soft tissues are unremarkable. XR/XR lumbar spine 2-3V IMPRESSION: Mild degenerative disc disease without change. Electronically signed by: Jonathan Ortiz MD 05/20/2025 01:45 PM EDT Dictated By: Jonathan Ortiz MD Signed By: <Electronically signed by Jonathan Ortiz MD in OV> 05/20/25 1345 DD/ 1340 TD/TT: 05/20/25 1342 Traveling Buyer: Procedure Note Donotuseinterpreter, Image - 05/20/[address] [address] XRay Report Signed Patient: Zeferino Varma FMR#: [id number] 14 : 1975Acct:[id number] Age/Sex: 49 / MADM Date: 05/20/25 Loc: HO.HHCX Attending Dr: Maria A Chavez MD Ordering Physician: Maria A Chavez MD Date of Service: 05/20/25 Procedure(s): XR lumbar spine 2-3V Accession Number(s): [id number] cc: Maria A Chavez MD Reason for Exam: low back pain. No radiation to legs. No accident. EXAMINATION: XR LUMBAR SPINE 2-3 VIEWS HISTORY: low back pain. No radiation to legs. No accident. COMPARISON: Comparison is made with the prior examination dated 07/18/2023. FINDINGS: AP, lateral, and coned down views of the lumbar spine are submitted. Osseous mineralization is normal. Five nonrib-bearing lumbar vertebral bodies are identified, maintaining normal height and alignment without evidence of fracture or spondylolisthesis. Again seen are anterior osteophytes at multiple levels. The intervertebral disc spaces are preserved. The posterior elements are intact. The visualized paraspinal soft tissues are unremarkable. XR/XR lumbar spine 2-3V IMPRESSION: Mild degenerative disc disease without change. Electronically signed by: Jonathan Ortiz MD 05/20/2025 01:45 PM EDT RP Dictated By: Jonathan Ortiz MD Signed By: <Electronically signed by Jonathan Ortiz MD in OV> 05/20/25 1345 DD/ 1340 TD/TT: 05/20/25 1342 Traveling Buyer: Maria A Chavez MD IMG XR PROCEDURES Edited Result - Final * (ABNORMAL) POCT Glucose (05/20/2025 11:51 AM EDT) Glucose Blood, POC 260(A) 60 - 200 mg/dL Comment:Random QC Media Lot # [id number] Lot# Expiration Date ,692,444 Blood Capillary blood specimen / Unknown 05/20/2025 11:51 AM EDT Maria A Chavez MD POINT OF CARE TEST ENTER/EDIT OR DERABLES Final Result documented in this encounter Visit Diagnoses Diagnosis Hypertension, unspecified type- Primary Dyslipidemia Other and unspecified hyperlipidemia Type 2 diabetes mellitus with hyperglycemia, without long-term current use of insulin (HCC) Metabolic dysfunction-associated steatotic liver disease (MASLD) Moderate major depression, single episode (CMS/HCC) (HCC) Major depressive disorder, single episode, moderate Psoriasis Other psoriasis Carpal tunnel syndrome on both sides Carpal tunnel syndrome Chronic bilateral low back pain without sciatica documented in this encounter Additional Health Concerns Assessment Noted Time PHQ-9 Depression Total Score: 0 05/20/20 25 11:50 AM EDT documented as of this encounter Care Teams Caregivers Non Medical Relationship Specialty Start Date End Date Maria A Chavez MD [address] [place] [address] PCP - General Family Medicine 06/20/22 Florian Rojas, Esa [address] [place] [address] Pharmacist Internal Medicine 05/03/23 documented as of this encounter
--- OUTSIDE RECORDS SUMMARY | 2025-05-20 16:00 | XMS_ITS | Encounter Summary ---
Author Organization [employer] Address [address] [place] [address] Care Team Providers Care Sifter Operator Name Role Phone Maria A Chavez MD Primary Care Provider [phone] Florian Rojas PharmD Unavailable [phone] Reason for Visit * Reason Comments Med Refill Encounter Details Date Type Department Care Team ([facility] st Contact Info) Description 07/25/2024 Refill [facility] MED[facility]INE [address] [place], [place] [phone] Maria A Chavez MD [address] [place], [place] [phone] Social History Tobacco Use Types Packs/Day Years [...] Description 06/20/2025 3:30 PM EST Medication Management [facility] MEDICINE [address] [place] [address] Florian Rojas PharmD [address] [place] [address] documented as of this encounter Goals Goal Patient Goal Type Associated Problems Recent Progress Patient-Stated? Author Blood Pressure < 140/90 Blood Pressure 114/68(2024 11:45 AM EDT) No Florian Rojas PharmD Hemoglobin A1c < 7 Result Component 13.8(04/14/20 11:45 AM EDT) No Florian Rojas PharmD documented as of this encounter Visit Diagnoses Not on filedocumented in this encounter Care Teams Sifter Operator Relationship Specialty Start Date End Date Maria A Chavez MD [address] [place] [phone] PCP - General Family Medicine 06/20/22 Florian Rojas PharmD [address] [place] [address] Pharmacist Internal Medicine 05/03/23 documented as of this encounter
--- OUTSIDE RECORDS SUMMARY | 2025-05-20 16:00 | XMS_ITS | Encounter Summary ---
Author Organization [employer] Address [address] [place] [address] Care Team Providers Care Deaf Teacher Name Role Phone Maria A Chavez MD Primary Care Provider [phone] Florian Rojas PharmD Unavailable [phone] Reason for Referral * Consultation (Routine) - Canceled Specialty Diagnoses / Procedures Referred By Contsteven t Referred To Contact Pharmacy Diagnoses Type 2 diabetes mellitus with hyperglycemia, without long-term current use of insulin (HCC) Hypertension, unspecified type Maria A Chavez MD [address] [place] [address] Phone: tel: fax: Referral ID Status Reason Start Date Expiration Date V isits Requested Visits Authorized [id number] Canceled Consult and Treat 06/11/2024 06/11/2025 6 6 Encounter Details Date Type Department Care Team (Late st Contact Info) Description 06/11/2024 Orders Only [facility] [address] [place], [place] [phone] Maria A Chavez MD [address] [place], [place] [phone] Type 2 diabetes mellitus with hyperglycemia, without [...] Description 06/20/2025 3:30 PM EST Medication Management [facility] [address] [place] [address] Florian Rojas PharmD [address] [place] [address] Scheduled Referrals Name Type Priority Associated Diagnoses Orde r Schedule Referral to Pharmacy CDTM Outpatient Referral Routine Type 2 diabetes mellitus with hyperglycemia, without long-term current use of insulin ([facility]) Hypertension, unspecified type Ordered: 06/11/2024 documented as of this encounter Goals Goal Patient Goal Type Associated Problems Recent Progress Patient-Stated? Author Blood Pressure < 140/90 Blood Pressure 114/68(2024 11:45 AM EDT) No Florian Rojas, Esa Hemoglobin A1c < 7 Result Component 13.8(04/14/20 11:45 AM EDT) No Florian Rojas PharmD documented as of this encounter Visit Diagnoses Diagnosis Type 2 diabetes mellitus with hyperglycemia, without long-term current use of insulin (HCC)- Primary Hypertension, unspecified type documented in this encounter Care Teams Deaf Teacher Relationship Specialty Start Date End Date Maria A Chavez MD [address] [place], [place] [phone] PCP - General Family Medicine 06/20/22 Florian Rojas, RayaD [address] [place] [address] Pharmacist Internal Medicine 05/03/23 documented as of this encounter
--- OUTSIDE RECORDS SUMMARY | 2025-05-20 16:01 | XMS_ITS | Encounter Summary ---
Author Organization [employer] Address [address] [place] [address] Care Team Providers Care Utility Sales And Service Manager Name Role Phone Maria A Chavez MD Primary Care Provider [phone] Florian Rojas PharmD Unavailable [phone] Reason for Referral * Consultation (Routine) - Authorized Specialty Diagnoses / Procedures Referred By Contac t Referred To Contact Pharmacy Diagnoses Type 2 diabetes mellitus with hyperglycemia, without long-term current use of insulin (HCC) Hypertension, unspecified type Maria A Chavez MD [address] [place] [address] Phone: tel: fax: Referral ID Status Reason Start Date Expiration Date Visits Requested Visits Authorized [id number] Authorized Consult and Treat 11/01/2024 11/01/2025 6 6 Encounter Details Date Type Department Care Team (Late st Contact Info) Description 11/01/2024 Orders Only [facility] MEDICINE [address] [place] [address] [phone] Maria A Chavez MD [address] [place], [place] [phone] Type 2 diabetes mellitus with hyperglycemia, without [...] Description 06/20/2025 3:30 PM EST Medication Management [facility]INE [address] [place] [address] Florian Rojas, PharmD [address] [place] [address] Scheduled Referrals Name Type Priority Associated Diagnoses Orde r Schedule Referral to Pharmacy CDTM Outpatient Referral Routine Type 2 diabetes mellitus with hyperglycemia, without long-term current use of insulin ([facility]) Hypertension, unspecified type Ordered: 11/01/2024 documented as [...] documented as of this encounter Care Teams Utility Sales And Service Manager Relationship Specialty Start Date End Date Maria A Chavez MD [address] [place] [address] PCP - General Family Medicine 06/20/22 Florian Rojas PharmD [address] [place] [address] Pharmacist Internal Medicine 05/03/23 documented as of this encounter
--- OUTSIDE RECORDS SUMMARY | 2025-05-20 16:01 | XMS_ITS | Encounter Summary ---
Author Organization [employer] Address [address] [facility] 7 [place] [address] Care Team Providers Care General Foundry Worker Name Role Phone Maria A Chavez MD Primary Care Provider [phone] Florian Rojas PharmD Unavailable [phone] Encounter Details Date Type Department Care Team (Latest Contact Info) Description 05/20/2025 Travel Social History Tobacco Use Types Packs/Day [...] Description 06/20/2025 3:30 PM EST Medication Management [facility] [address] [place] [address] Florian Rojas PharmD [address] [place] [address] documented as of this encounter Goals Goal Patient Goal Type Associated Problems Recent Progress Patient-Stated? Author Blood Pressure < 140/90 Blood Pressure 114/68(2024 11:45 AM EDT) No Florian Rojas PharmD Hemoglobin A1c < 7 Result Component 13.8(04/14/20 11:45 AM EDT) No Florian Rojas PharmD documented as of this encounter Visit Diagnoses Not on filedocumented in this encounter Additional Health Concerns Assessment Noted Time PHQ-9 Depression Total Score: 0 05/20/20 11:50 AM EDT documented as of this encounter Care Teams General Foundry Worker Relationship Specialty Start Date End Date Maria A Chavez MD [address] [place] [address] PCP - General Family Medicine 06/20/22 Florian Rojas PharmD [address] [place] [address] Pharmacist Internal Medicine 05/03/23 documented as of this encounter
--- OUTSIDE RECORDS SUMMARY | 2025-05-20 16:01 | XMS_ITS | Encounter Summary ---
Author Organization [employer] Address [address] [place] [address] Care Team Providers Care Popcorn Machine Operator Name Role Phone Maria A Chavez MD Primary Care Provider Florian Rojas PharmD Unavailable [phone] Reason for Visit * Reason Comments Med Refill Encounter Details Date Type Department Care Team ([facility] st Contact Info) Description 09/13/2023 Refill [facility] [address] [place], [place] [phone] Maria A Chavez MD [address] [place], [place] [phone] Social History Tobacco Use Types Packs/Day Years [...] Description 06/20/2025 3:30 PM EST Medication Management [facility] [address] [place] [address] Florian Rojas PharmD [address] [place] [address] documented as of this encounter Goals Goal Patient Goal Type Associated Problems Recent Progress Patient-Stated? Author Blood Pressure < 140/90 Blood Pressure 114/68(2024 11:45 AM EDT) No Florian Rojas PharmD Hemoglobin A1c < 7 Result Component 13.8(04/14/20 11:45 AM EDT) No Florian Rojas PharmD documented as of this encounter Visit Diagnoses Not on filedocumented in this encounter Care Teams Popcorn Machine Operator Relationship Specialty Start Date End Date Maria A Chavez MD [address] [place] [address] PCP - General Family Medicine 06/20/22 Florian Rojas PharmD [address] [place] [phone] Pharmacist Internal Medicine 05/03/23 documented as of this encounter
--- OUTSIDE RECORDS SUMMARY | 2025-05-20 16:01 | XMS_ITS | Encounter Summary ---
Author Organization [employer] Address [address] [place] [address] Care Team Providers Care Research And Development Tester Name Role Phone Marai A Chavez MD Primary Care Provider [phone] Florian Rojas PharmD Unavailable [phone] Encounter Details Date Type Department Care Team (Late st Contact Info) Description 05/16/2025 Orders Only [facility] [address] [place], [place] [phone] Maria A Chavez MD [address] [place], [place] [phone] Social History Tobacco Use Types Packs/Day Years [...] Description 06/20/2025 3:30 PM EST Medication Management [facility] [address] [place] [address] Florian Rojas PharmD [address] [place] [address] documented as of this encounter Goals Goal Patient Goal Type Associated Problems Recent Progress Patient-Stated? Author Blood Pressure < 140/90 Blood Pressure 114/68(2024 11:45 AM EDT) No Florian Rojas PharmD Hemoglobin A1c < 7 Result Component 13.8(04/14/20 11:45 AM EDT) No Florian Rojas PharmD documented as of this encounter Procedures Procedure Name Priority Date/Time Associated Diagnosis Comments HEPATIC FUNCTION PANEL Routine 05/16/2025 12:23 PM EDT LIPID PANEL, STANDARD Routine 05/16/2025 12:23 PM EDT BASIC METABOLIC PANEL Routine 05/16/2025 12:23 PM EDT documented in this encounter Results * (ABNORMAL) Lipid Panel, Standard (05/16/2025 12:23 PM EDT) Triglycerides 180(H) <150 mg/dL [facility] Comment:Desirable Triglyceri de: less than 150 mg/dLBorderline High Triglyceride 150-199 mg/dLHigh Triglyceride: 200-499 mg/dLVery High Triglyceride: greater than or equal to 5OO mg/dL Cholesterol 104 <200 mg/dL [facility] Comment:Desirable Cholestero l: less than 200 mg/dLBorderline High Cholesterol: 200-239 mg/dLHigh Cholesterol: greater than 239 mg/dL LDL Cholesterol Calculated 34 <100 mg/dL [facility] Comment:Desirable LDL: less than 100 mg/dLNear Optimal/Above Optimal LDL: 110- 129 mg/dLBorderline High LDL: 130-159 mg/dLHigh LDL: 160-189 mg/dLVery High LDL: greater than or equal to 190 mg/dL HDL Cholesterol 34(L) >40 mg/dL [facility] Comment:Desirable HDL: great er than 40 mg/dL Note: This HDL assay may give artificially low results in patients with liver disease. 05/16/2025 12:2 3 PM EDT 05/16/2025 4:02 PM EDT us Maria A Chavez MD LAB BLOOD ORDERABLES Final Resul t [facility] [address] [place] [phone] * (ABNORMAL) Basic Metabolic Panel (05/16/2025 12:23 PM EDT) Sodium 136 135 - 145 mmol/L [facility] Potassium 4.3 3.3 - 5.1 mmol/L [facility] Chloride 98 96 - 108 mmol/L [facility] Carbon Dioxide 29 22 - 29 mmol/L [facility] Anion Gap 13 12 - 20 [facility] Urea Nitrogen (BUN) 12 9 - 16 mg/dL [facility] Creatinine, Serum 0.76 0.5 - 1.4 mg/dL [facility] Estimated Glomerular Filt Rate >60 [facility] Comment:Chronic Kidney Disea se: Estimated GFR < 60 mL/min/1.33m2Yomhyb Kidney Disease: Estimated GFR < 15 mL/min/1.73m2 Glucose 289(H) 60 - 115 mg/dL [facility] Calcium 10.0 8.4 - 10.2 mg/dL [facility] 05/16/2025 12:2 3 PM EDT 05/16/2025 4:02 PM EDT us Maria A Chavez MD LAB BLOOD ORDERABLES Final Resul t Performing Organization Address [facility] Co de Phone Number [facility] [address] [place] [phone] * (ABNORMAL) Hepatic Function Panel (05/16/2025 12:23 PM EDT) Bilirubin, Total 0.4 0.0 - 1.0 mg/dL [facility] Bilirubin, Direct 0.2 0.0 - 0.5 mg/dL [facility] Aspartate Amino Transferase 57(H) 5 - 37 U/L [facility] Alanine Aminotransferase 78(H) 0 - 40 U/L [facility] Total Protein 7.6 6.5 - 8.0 g/dL [facility] Albumin Level 4.6 3.5 - 5.0 g/dL [facility] Alkaline Phosphatase 121(H) 39 - 117 U/L [facility] 05/16/2025 12:2 3 PM EDT 05/16/2025 4:02 PM EDT us Maria A Chavez MD LAB BLOOD ORDERABLES Final Resul t Performing Organization Address [facility] Co de Phone Number [facility] [address] [place] [phone] documented in this encounter Visit Diagnoses Not on filedocumented in this encounter Additional Health Concerns Assessment Noted Time PHQ-9 Depression Total Score: 9 09/25/19 25 2:42 PM EST documented as of this encounter Care Teams Research And Development Tester Relationship Specialty Start Date End Date Maria A Chavez MD [address] [place] [phone] PCP - General Family Medicine 06/20/22 Florian Rojas, RayaD [address] [place], [place] [address]asi[place] [address] Pharmacist Internal Medicine 05/03/23 documented as of this encounter
--- OUTSIDE RECORDS SUMMARY | 2025-05-20 16:01 | XMS_ITS | Encounter Summary ---
Author Organization [employer] Address [address] [place] [address] Care Team Providers Care Lamination Technician Name Role Phone Maria A Chavez MD Primary Care Provider [phone] Florian Rojas PharmD Unavailable [phone] Reason for Visit * Reason Comments Med Refill Encounter Details Date Type Department Care Team ([facility] st Contact Info) Description 07/18/2023 Refill [facility] [address] [place], [place] [phone] Name, MD Franck [address] [place] [address] Essential hypertension Social History Tobacco Use Types [...] Description 06/20/2025 3:30 PM EST Medication Management [facility] [address] [place] [address] Florian Rojas, Esa [address] [place] [address] documented as of this encounter Goals Goal Patient Goal Type Associated Problems Recent Progress Patient-Stated? Author Blood Pressure < 140/90 Blood Pressure 114/68(2024 11:45 AM EDT) No Florian Rojas PharmD Hemoglobin A1c < 7 Result Component 13.8(04/14/20 11:45 AM EDT) No Florian Rojas, Esa documented as of this encounter Visit Diagnoses Diagnosis Essential hypertension Unspecified essential hypertension documented in this encounter Care Teams Lamination Technician Relationship Specialty Start Date End Date Maria A Chavez MD [address] [place] [address] PCP - General Family Medicine 06/20/22 Florian Rojas PharmD [address] [place] [address] Pharmacist Internal Medicine 05/03/23 documented as of this encounter
--- OUTSIDE RECORDS SUMMARY | 2025-05-20 16:01 | XMS_ITS | Encounter Summary ---
Author Organization [employer] Address [address] [facility] [address] [facility] [place] [address] Care Team Providers Care Design Engineer Marine Equipment Name Role Phone Maria A Chavez MD Primary Care Provider [phone] Florian Rojas PharmD Unavailable [phone] Reason for Visit * Reason Comments Med Refill Encounter Details Date Type Department Care Team ([facility] st Contact Info) Description 06/28/2024 Refill [facility] [address] [place], [place] [phone] Maria A Chavez MD [address] [place] [address] Neuropathy Social History Tobacco Use Types Packs/Day [...] 06/20/2025 3:30 PM EST Medication Management [facility] [address] [place] [address] Florian Rojas PharmD [address] [place] [address] documented as of this encounter Goals Goal Patient Goal Type Associated Problems Recent Progress Patient-Stated? Author Blood Pressure < 140/90 Blood Pressure 114/68(2024 11:45 AM EDT) No Florian Rojas PharmD Hemoglobin A1c < 7 Result Component 13.8(04/14/20 11:45 AM EDT) No Florian Rojas PharmD documented as of this encounter Visit Diagnoses Diagnosis Neuropathy Mononeuritis of unspecified site documented in this encounter Care Teams Design Engineer Marine Equipment Relationship Specialty Start Date End Date Maria A Chavez MD [address] [place] [address] PCP - General Family Medicine 06/20/22 Florian Rojas PharmD [address] [place] [address] Pharmacist Internal Medicine 05/03/23 documented as of this encounter
--- OUTSIDE RECORDS SUMMARY | 2025-05-20 16:01 | XMS_ITS | Encounter Summary ---
Author Organization [employer] Address [address] [place] [address] Care Team Providers Care Bookkeeper Receptionist Name Role Phone Maria A Chavez MD Primary Care Provider [phone] Florian Rojas PharmD Unavailable [phone] Encounter Details Date Type Department Care Team (Late st Contact Info) Description 05/20/2025 Results Follow-Up [facility] [address] [place], [place] [phone] Maria A Chavez MD [address] [place] [address] XR Lumbar Spine 2-3 Views Social History Tobacco Use Types Packs/Day Years [...] Description 06/20/2025 3:30 PM EST Medication Management [facility] [address] [place] [address] Florian Rojas PharmD [address] [place] [address] documented as of this encounter Goals Goal [...] documented as of this encounter Care Teams Bookkeeper Receptionist Relationship Specialty Start Date End Date Maria A Chavez MD [address] [place] [address] PCP - General Family Medicine 06/20/22 Florian Rojas PharmD [address] [place] [address] Pharmacist Internal Medicine 05/03/23 documented as of this encounter
--- OUTSIDE RECORDS SUMMARY | 2025-05-20 16:01 | XMS_ITS | Encounter Summary ---
Author Organization [employer] Address [address] [place] [address] Care Team Providers Care Child Life Assistant Name Role Phone Maria A Chavez MD Primary Care Provider [phone] Florian Rojas PharmD Unavailable [phone] Reason for Visit * Reason Comments Med Refill Encounter Details Date Type Department Care Team ([facility] st Contact Info) Description 07/18/2023 Refill [facility] [address] [place], [place] [phone] Libby Rodriguez MD [address] [place] [address] Pruritus Social History Tobacco Use Types Packs/Day [...] Description 06/20/2025 3:30 PM EST Medication Management [facility] [address] [place] [address] Florian Rojas PharmD [address] [place] [address] documented as of this encounter Goals Goal Patient Goal Type Associated Problems Recent Progress Patient-Stated? Author Blood Pressure < 140/90 Blood Pressure 114/68(2024 11:45 AM EDT) No Florian Rojas PharmD Hemoglobin A1c < 7 Result Component 13.8(04/14/20 11:45 AM EDT) No Florian Rojas PharmD documented as of this encounter Visit Diagnoses Diagnosis Pruritus Unspecified pruritic disorder documented in this encounter Care Teams Child Life Assistant Relationship Specialty Start Date End Date Maria A Chavez MD [address] [place] [phone] PCP - General Family Medicine 06/20/22 Florian Rojas PharmD [address] [place] [phone] Pharmacist Internal Medicine 05/03/23 documented as of this encounter
--- OUTSIDE RECORDS SUMMARY | 2025-05-20 16:01 | XMS_ITS | Clinical Summary ---
Author Organization [employer] Address [address] [place] [address] [address], [place] [address] Care Team Providers Care Loop Cutter Name Role Phone Maria A Chavez MD Primary Care Provider [phone] Florian Rojas PharmD Unavailable [phone] Allergies No known active allergies Medications Blood [...] times daily. 453.6 g 05/03/20 24 Active ketoconazole (NIZOral) 2 % [...] CRUSH, DISSOLVE OR CHEW 360 tablet 3 01/23/20 25 Active atorvastatin (Lipitor) 20 MG tablet [...] twice daily 100 each 5 04/14/20 25 2025 Active Lancets (OneTouch Delica Plus [id number]) miscIndications :Type 2 diabetes mellitus with hyperglycemia, without long-term current use of insulin (HCC) Use to check blood sugar twice daily 100 each 04/14/20 25 Active losartan (Cozaar) 50 MG tabletIndicatio ns:Hypertension , unspecified type Take 1 tablet (50 mg) by mouth Once per day. 30 tablet 2 04/14/20 25 Active Tirzepatide (Mounjaro) 5 MG/0.5ML solution auto-injectorIn dications:Type 2 diabetes mellitus with hyperglycemia, without long-term current use of insulin (HCC) Inject 5 mg under the skin 1 (one) time per week. 2 mL 3 05/16/20 25 Active ustekinumab (Stelara) injectionIndica tions:Psoriasis Inject 1 ml q3 months 1 mL 05/20/20 25 Active ustekinumab (Stelara) injectionIndica tions:Psoriasis Inject 1 ml q3 months 1 mL 11 05/03/20 24 2024 Discontinued(R eorder (will not trigger notification to Pharmacy)) Tirzepatide (Mounjaro) 2.5 MG/0.5ML solution auto-injectorIn dications:Type 2 diabetes mellitus with hyperglycemia, without long-term current use of insulin (HCC) Inject 2.5 mg under the skin 1 (one) time per week. 2 mL 04/14/20 25 2024 Discontinued ustekinumab (Stelara) injectionIndica tions:Psoriasis Inject 1 ml q3 months 1 mL 11 05/20/20 25 2024 Discontinued(E ntered in error) Active Problems Problem Noted Date Diagnosed Date [...] 6:28 AM EST): - previously evaluated by precision dyer for possibility of psoriatic arthritis, but was [...] - Nerve Conduction Test in 05/2022, showed Wmytzlvo-ip-Hbsixl bilateral carpal tunnel syndrome - s/p bilateral carpal tunnel release -Right 12/05/22 -Left 01/02/23 -improved symptoms; follow up with ortho prn Assessment & Plan (01/19/2023 5:37 AM EDT): - Nerve Conduction Test in 05/2022, showed Yposqejv-uo-Jwzocr bilateral carpal tunnel syndrome s/p bilateral carpal tunnel release -Right 12/05/22 -Left 01/02/23 -follow with Orthopedist Assessment & Plan (10/24/2022 5:20 PM EDT): Nerve Conduction Test in 05/2022, showed Jzmgnbsz-sh-Bfeujx bilateral carpal tunnel syndrome -Continue wearing braces [...] tiny posterior calcaneal spur. - seen by stained glass painter - pt received shoe inserts and currently pain-free - Pt will benefit from Diabetic Shoes Assessment & Plan (11/05/2022 4:16 PM EDT): Likely plantar fasciiitis - evaluate with XR - refer to Funeral Sales Manager -Pt will benefit from Diabetic Shoes Epigastric pain 10/23/2017 Moderate major depression, single episode (CMS/H CC) 05/03/2017 Assessment & Plan (09/24/2024 8:56 AM EST): -S provider: JENNY, therapist Diana Balderrama -pt is interested in trying a new antidepressant -previously tried venlafaxine, which was discontinued due to ineffectiveness -continue sertraline 25 mg daily. -continue exercising at gym, which seems to help with his symptoms -able to contract his safety today Assessment & Plan (08/11/2023 12:07 PM EST): -[facility] provider: JENNY, therapist Diana Balderrama -pt is interested in trying a new antidepressant -previously tried venlafaxine, which was discontinued due to ineffectiveness -continue sertraline 25 mg daily. -continue exercising at gym, which seems to help with his symptoms -able to contract his safety today Assessment & Plan (06/24/2023 7:04 AM EST): -[facility] provider: JENNY therapist Diana Balderrama -pt is [...] (consecutively) -Co-managed with our pharmacist, Florian Rojas [facility], PharmD, through [facility] -Continue working on lifestyle [...] -continue working on lifestyle modifications -Refer to [facility] Assessment & Plan (11/05/2022 4:07 PM EDT): Goal BP <140/90 per JNC-8, < 130/80 per ACC/AHA guideline -BP not at goal today -Continue working on lifestyle modifications -continue monitoring BP at home -continue Losartan 100mg daily -continue working on lifestyle modifications -Refer to [facility] Clinic Type 2 diabetes mellitus 02/17/2017 Assessment [...] Plan (09/25/2024 6:33 AM EST): -[place] [facility], last visit in Apr 2024 -Tried Triamcinolone 0.1% cream, 80g compounded with 1lb of CeraVe after showers and before bedtime. -Continue Triamciniolone ointment as prescribed -Previously prescribed ustekunimab injection. Not using currently due to PA requirement. -Evaluated by precision dyer for possible arthritis. Unlikely to have psoriatic arthritis. Elevated ESR and CRP likely due to obesity. Assessment & Plan (10/12/2023 12:00 AM EDT): Following with Container Finishing Inspector -Continue Triamcinolone 0.1% cream, 80g compounded with 1lb of CeraVe after showers and before bedtime. -Continue ustekunimab injection as prescribed -Evaluated by precision dyer for possible arthritis. Unlikely to have psoriatic arthritis. Elevated ESR and CRP likely due to obesity. Assessment & Plan (08/11/2023 12:07 PM EST): -Following with Container Finishing Inspector -Continue Triamcinolone 0.1% cream, 80g compounded with 1lb of CeraVe after showers and before bedtime. -Continue ustekunimab injection as prescribed -Evaluated by precision dyer for possible arthritis. Unlikely to have psoriatic arthritis. Elevated ESR and CRP likely due to obesity. Assessment & Plan (06/24/2023 7:05 AM EST): -Following with Container Finishing Inspector -Continue Triamcinolone 0.1% cream, 80g compounded with 1lb of CeraVe after showers and before bedtime. -Continue ustekunimab injection as prescribed -Refer to precision dyer to evaluate for possible arthritis. Pt is on Stelala, but will check ESR and CRP. Assessment & Plan (01/19/2023 5:43 AM EDT): -Following with Container Finishing Inspector -Continue Triamcinolone 0.1% cream, 80g compounded with [...] Encounters Date Type Department Care Team Description 05/20/2025 11:30 AM EDT Office Visit [address] [address] Maria A Chavez MD Hypertension, unspecified type (Primary Dx); Dyslipidemia; Type 2 diabetes mellitus with hyperglycemia, without long-term current use of insulin (HCC); Metabolic dysfunction-associat ed steatotic liver disease (MASLD); Moderate major depression, single episode (CMS/HCC) (HCC); Psoriasis; Carpal tunnel syndrome on both sides; Chronic bilateral low back pain without sciatica 05/20/2025 Results Follow-Up [address] [phone] Maria A Chavez MD XR Lumbar Spine 2-3 Views 05/20/2025 Travel 05/19/2025 Telephone [facility] [place], [place] [phone] Maria A Chavez MD chartprep 05/16/2025 Orders Only [address] [phone] Maria A Chavez MD 05/16/2025 Refill [facility] [address] [place] [address] Florian Rojas, PharmD Type 2 diabetes mellitus with hyperglycemia, without long-term current use of insulin (HCC) 04/14/2025 Travel 03/21/2025 Telephone [facility] [address] [place] [address] Florian Rojas, PharmAiram 03/21/2025 Telephone [facility] [address] [place] [address] Maria A Chavez MD Med Refill 02/25/2025 Telephone [facility] [address] [place] [address] Maria A Chavez MD from Last 3 [...] 18 05/20/2025 11:45 AM EDT Oxygen Saturation 99% 09/24/2024 10:03 AM EST Inhaled Oxygen Concentration - - Weight 124 kg (273 lb) 05/20/2025 11:45 AM EDT Height 165.1 cm (5' 5 ) 05/20/2025 11:45 AM EDT Body Mass Index 45.43 05/20/2025 11:45 AM EDT Plan of Treatment Upcoming Encounters Date Type Department Care Team (Late st Contact Info) Description 06/20/2025 3:30 PM EST Medication Management [facility] [address] [place] [address] Florian Rojas, PharmD [address] [place] [address] Health Maintenance Due Date Last Done Comments CT Colonography 1974 FIT DNA/Cologuard 1974 FIT 1974 FOBT 1975 Sigmoidoscopy 1974 Eye Exam 1984 Family Planning (PISQ) 1989 Zoster Vaccines (1 of 2) 2024 COVID-19 Vaccine (2 - season) 2025 08/08/2023 Influenza Vaccine (#1) 2025 Diabetes: Hemoglobin A1C 07/14/2025 025, 09/24/2024, 09/04/2024, Additional history exists Alcohol/Substance Use Screening 09/24/2025 09/24/2024 Diabetes: Foot Exam 09/24/2025 09/24/2024, 09/24/2024, 09/24/2024, Additional history exists Diabetes: Urine Protein Screening 09/24/2025 09/24/2024, 06/14/2023, 01/18/2023, Additional history exists SDOH Screening 09/25/2025 09/25/2024 Lipid Panel 05/16/2026 05/16/2025, 09/01, 06/14/2023, Additional history exists Depression Screening 05/20/2026 05/20/2025, 05/20/20 25 Disability Screening 05/20/2026 05/20/2025 Tobacco Screening 05/20/2026 05/20/2025 DTaP/Tdap/Td Vaccines (2 - Td or Tdap) 02/01/2027 02/01/2017 Colonoscopy 07/18/2032 07/18/2022 Colorectal Cancer Screening 07/18/2032 RSV Patients and Patients Aged 60 years or older (1 - 1-dose 75+ series) 2049 Hepatitis C Screening Completed 11/09/2022, 022 HIV Screening Completed 01/18/2023, 12/13/2021 Hepatitis B Vaccines Completed 07/19/2023, 02/22/2023, 01/18/2023 Pneumococcal Vaccine: 50+ Years Completed 08/08/2023 Hepatitis A Vaccines Completed 09/13/2023, 01/19/20 23 HIB Vaccines Aged Out No longer eligi [...] without long-term current use of insulin (HCC) LIPID PANEL, STANDARD Routine 05/16/2025 12:23 PM EDT BASIC METABOLIC PANEL Routine 05/16/2025 12:23 PM EDT HEPATIC FUNCTION PANEL Routine 05/16/2025 12:23 PM EDT POCT GLYCATED HEMOGLOBIN, TOTAL Routine 04/14/2025 11:45 AM EDT Type 2 diabetes mellitus with hyperglycemia, without long-term current use of insulin (CMS/HCC) ALBUMIN, RANDOM URINE W/CREATININE Routine 09/24/2024 10:47 AM EST HIV 1/2 ANTIGEN/ANTIBODY, FOURTH GENERATION W/RFL Routine 01/18/2023 11:06 AM EDT Routine screening for STI (sexually transmitted infection) HEPATITIS C AB W/REFL TO HCV RNA, QN, PCR Routine 11/09/2022 8:14 AM EDT Transaminitis HM COLONOSCOPY Routine 07/18/2022 from Last 3 Months or Most Recently Relevant to Health Maintenance Results * XR Lumbar Spine 2-3 Views (05/20/2025 1:40 PM EDT) Anatomical Region Laterality Modality Spine, L-spine Radiographic Marjan ging 05/20/2025 1:40 PM EDT Narrative 05/20/2025 1:48 PM EDT [address] [address] XRay Report Signed Patient: Zeferino Varma MR#: [id number] 14 : 1975 Acct:[id number] Age/Sex: 49 / M ADM Date: 05/20/25 Loc: HO.HHCX Attending Dr: Maria A Chavez MD Ordering Physician: Maria A Chavez MD Date of Service: 05/20/25 Procedure(s): XR lumbar spine 2-3V Accession Number(s): [id number] cc: Maria A Chavez MD Reason for [...] 05/20/25 1345 DD/ 1340 TD/TT: 05/20/25 1342 Research Center Director: Procedure Note Donotuseinterpreter, Image - 05/20/2025 [facility] [address] [place] [address] XRay Report Signed Patient: Zeferino Varma FMR#: [id number] 14 : 1975Acct:[id number] Age/Sex: 49 / MADM Date: 05/20/25 Loc: HO.HHCX Attending Dr: Maria A Chavez MD Ordering Physician: Maria A Chavez MD Date of Service: 05/20/25 Procedure(s): XR lumbar spine 2-3V Accession Number(s): [id number] cc: Maria A Chavez MD Reason for [...] 05/20/25 1345 DD/ 1340 TD/TT: 05/20/25 1342 Research Center Director: us Maria A Chavez MD IMG XR PROCEDURES Edited Result - Final * (ABNORMAL) POCT Glucose (05/20/2025 11:51 AM EDT) Glucose Blood, POC 260(A) 60 - 200 mg/dL Comment:Random QC Media Lot # [id number] Lot# Expiration Date 306, Blood Capillary blood specimen / Unknown 05/20/2025 11:51 AM EDT Maria A Chavez MD POINT OF CARE TEST ENTER/EDIT OR DERABLES Final Result * (ABNORMAL) Hepatic Function Panel (05/16/2025 12:23 PM EDT) Bilirubin, Total 0.4 0.0 - 1.0 mg/dL [facility] Bilirubin, Direct 0.2 0.0 - 0.5 mg/dL [facility] Aspartate Amino Transferase 57(H) 5 - 37 U/L [facility] Alanine Aminotransferase 78(H) 0 - 40 U/L [facility] Total Protein 7.6 6.5 - 8.0 g/dL [facility] Albumin Level 4.6 3.5 - 5.0 g/dL [facility] Alkaline Phosphatase 121(H) 39 - 117 U/L [facility] 05/16/2025 12:2 3 PM EDT 05/16/2025 4:02 PM EDT Maria A Chavez MD LAB BLOOD ORDERABLES Final Resul t [facility] [address] [place] [phone] * (ABNORMAL) Lipid Panel, Standard (05/16/2025 12:23 PM EDT) Triglycerides 180(H) <150 mg/dL [facility] Comment:Desirable Triglyceri de: less than 150 mg/dLBorderline High Triglyceride 150-199 mg/dLHigh Triglyceride: 200-499 mg/dLVery High Triglyceride: greater than or equal to 5OO mg/dL Cholesterol 104 <200 mg/dL [facility] Comment:Desirable Cholestero l: less than 200 mg/dLBorderline High Cholesterol: 200-239 mg/dLHigh Cholesterol: greater than 239 mg/dL LDL Cholesterol Calculated 34 <100 mg/dL [facility] Comment:Desirable LDL: less than 100 mg/dLNear Optimal/Above Optimal LDL: 110- 129 mg/dLBorderline High LDL: 130-159 mg/dLHigh LDL: 160-189 mg/dLVery High LDL: greater than or equal to 190 mg/dL HDL Cholesterol 34(L) >40 mg/dL [facility] Comment:Desirable HDL: great er than 40 mg/dL Note: This HDL assay may give artificially low results in patients with liver disease. 05/16/2025 12:2 3 PM EDT 05/16/2025 4:02 PM EDT us Maria A Chavez MD LAB BLOOD ORDERABLES Final Resul t Performing Organization Address City/[facility]/ZIP Co de Phone Number [facility] [address] [place] [phone] [phone] * (ABNORMAL) Basic Metabolic Panel (05/16/2025 12:23 PM EDT) Sodium 136 135 - 145 mmol/L [facility] Potassium 4.3 3.3 - 5.1 mmol/L [facility] Chloride 98 96 - 108 mmol/L [facility] Carbon Dioxide 29 22 - 29 mmol/L [facility] Anion Gap 13 12 - 20 [facility] Urea Nitrogen (BUN) 12 9 - 16 mg/dL [facility] Creatinine, Serum 0.76 0.5 - 1.4 mg/dL [facility] Estimated Glomerular Filt Rate >60 [facility] Comment:Chronic Kidney Disea se: Estimated GFR < 60 mL/min/1.78j4Tmllap Kidney Disease: Estimated GFR < 15 mL/min/1.73m2 Glucose 289(H) 60 - 115 mg/dL [facility] Calcium 10.0 8.4 - 10.2 mg/dL [facility] 05/16/2025 12:2 3 PM EDT 05/16/2025 4:02 PM EDT us Maria A Chavez MD LAB BLOOD ORDERABLES Final Resul t [facility] [address] [place] [phone] [phone] * (ABNORMAL) POCT Hgb A1c (04/14/2025 11:45 AM EDT) Hemoglobin A1C 13.8(A) 4.0 - 5.7 % QC Media Lot # [id number] Lot# Expiration Date ,[id number] Blood 04/14/2025 11:4 5 AM EDT Maria A Chavez MD POINT OF CARE TEST ENTER/EDIT OR DERABLES Final Result * Albumin, Random Urine W/Creatinine (09/24/2024 10:47 AM EST) Creatinine, Urine 216.86 mg/dL [facility] Microalbumin Urine 44.0 mg/L [facility] Microalbum Creatinine Ratio Ur 20.2 <30 ug/mg cr [facility] Comment:Albumin/Creatinine R atio Reference Ranges: Normal: < 30 ug/mg creatinine Microalbuminuria: 30 - 300 ug/mg creatinineClinical Albuminuria: > 300 ug/mg creatinine 09/24/2024 10:4 7 AM EST 09/24/2024 11:20 AM EST Maria A Chavez MD LAB URINE ORDERABLES Final Resul t [facility] [address] [place] [address] [phone] * HIV-1/2 Antigen and Antibodies, Fourth Generation, with Reflexes (01/18/2023 11:06 AM EDT) HIV Antigen/Antibody, 4th Generation NON-REAC TIVE NON-REAC TIVE [facility] Comment: HIV-1 antigen and HIV-1/HIV-2 antibodies [...] purpose. For additional information please refer to http://[employer].Dromadaire.com/faq/HWB323 (This link is being provided for informational/ educational purposes only.) The performance of this assay has not been clinically validated in patients less than 2 years old. Blood Venous blood specimen / Unknown 01/18/2023 11:06 AM EDT 01/18/2023 11:07 AM EDT Narrative [facility] - 01/19/2023 7:14 PM EDT FASTING:NO FASTING: NO us Maria A Chavez MD LAB BLOOD ORDERABLES Final Resul t [facility] [address], [place] [address] [facility] [place] [facility] [address] [place] [address] * Hepatitis C Antibody with Reflex to HCV, RNA, Quantitative, Real-Time PCR (11/09/2022 8:14 AM EDT) Hepatitis C Antibody NON-REACT ALINA NON-REACT ALINA [facility] [place] adaffix Index 0.10 <1.00 [facility] [place] [facility] Comment: HCV antibody was non-reactive. There is no laboratory evidence of HCV infection. In most cases, no further action is required. However, if recent HCV exposure is suspected, a test for HCV RNA (test code 06880) is suggested. For additional information please refer to http://[email or web address].Roc2Loc/faq/YQY29c1 (This link is being provided for informational/ educational purposes only.) Blood Venous blood specimen / Unknown 11/09/2022 8:14 AM EDT 11/09/2022 8:15 AM EDT Narrative [facility] - 11/10/2022 1:19 AM EDT FASTING:YES FASTING: YES us Maria A Sakurai MD LAB BLOOD ORDERABLES Final Resul t [facility] [address], [place] [address] [facility] [address] [place] [address] * Hm Colonoscopy (07/18/2022) Colonoscopy Normal Normal Jonathan Harvey MD HEALTH MAINTENANCE Edited Result - Final from Last 3 Months or Most Recently Relevant to Health Maintenance Insurance [employer] Care Teams Loop Cutter Relationship Specialty Start Date End Date Maria A Chavez MD [address] [place] [phone] PCP - General Family Medicine 06/20/22 Florian Rojas, PharmD [facility] [place] [address] Pharmacist Internal Medicine 05/03/23
--- OUTSIDE RECORDS SUMMARY | 2025-05-20 16:01 | XMS_ITS | Encounter Summary ---
Author Organization [employer] Address [address] [place] [address] Care Team Providers Care Mixing And Dispensing Supervisor Name Role Phone Maria A Chavez MD Primary Care Provider [phone] Florian Rojas PharmD Unavailable [phone] Encounter Details Date Type Department Care Team (Late st Contact Info) Description 11/05/2022 Orders Only [facility] [address] [place] [phone] Maria A Chavez MD [address] [place] [address] [phone] Transaminitis (Primary Dx) Social History Tobacco Use [...] Description 06/20/2025 3:30 PM EST Medication Management [facility] [address] [place] [phone] Florian Rojas, PharmD [address] [place], [place] [phone] documented as of this encounter Procedures Procedure [...] Hepatitis C Antibody NON-REACT ALINA NON-REACT ALINA [facility] Index 0.10 <1.00 [facility] Comment: HCV antibody was non-reactive. There is no laboratory evidence of HCV infection. In most cases, no further action is required. However, if recent HCV exposure is suspected, a test for HCV RNA (test code 50767) is suggested. For additional information please refer to http://education.Stopango/faq/TAI60t1 (This link is being provided for informational/ educational purposes only.) Blood Venous blood specimen / Unknown 11/09/2022 8:14 AM EDT 11/09/2022 8:15 AM EDT Narrative [facility] - 11/10/2022 1:19 AM EDT FASTING:YES FASTING: YES us Maria A Chavez MD LAB BLOOD ORDERABLES Final Resul t [facility] [address] [place] [address], [place] [address] [facility] [address] [place] [phone] * Hepatitis A Antibody IgG (11/09/2022 8:14 AM EDT) Hepatitis A Antibody Total NON-REACT ALINA NON-REACT ALINA [facility] [place] [facility] Comment: For additional information, please refer to http://Watchfinder.Stopango/faq/PRW440 (This link is being provided for informational/ educational purposes only.) Blood Venous blood specimen / Unknown 11/09/2022 8:14 AM EDT 11/09/2022 8:15 AM EDT Narrative [facility] - 11/10/2022 1:19 AM EDT FASTING:YES FASTING: YES Maria A Chavez MD LAB BLOOD ORDERABLES Final Resul t Performing Organization Address [facility] de Phone Number [address] [phone] [facility] [place] [facility] [address] [place] [phone] * Hepatitis B Core Antibody, Total (11/09/2022 8:14 AM EDT) Pathologist [facility] Hepatitis B Core Antibody Total NON-REACT ALINA NON-REACT ALINA [facility] [place] [facility] Blood Venous blood specimen / Unknown 11/09/2022 8:14 AM EDT 11/09/2022 8:15 AM EDT Narrative [facility] - 11/10/2022 1:19 AM EDT FASTING:YES FASTING: YES Maria A Chavez MD LAB BLOOD ORDERABLES Final Resul t Performing Organization Address [facility] Co de Phone Number [address] [phone] [facility] [place] [facility] [address] [place] [phone] * Hepatitis B Surface Antigen with Reflex Confirmation (11/09/2022 8:14 AM EDT) Hepatitis B Surface Ag NON-REACT ALINA NON-REACT ALINA [facility] Blood Venous blood specimen / Unknown 11/09/2022 8:14 AM EDT 11/09/2022 8:15 AM EDT Narrative [facility] - 11/10/2022 1:19 AM EDT FASTING:YES FASTING: YES Maria A Chavez MD LAB BLOOD ORDERABLES Final Resul t Performing Organization Address [facility] de Phone Number [facility] [address] [place] [address], [place] [address] [facility] [address] [place] [phone] * (ABNORMAL) Hepatitis B Surface Antibody Immunity, Quantitative (11/09/2022 8:14 AM EDT) Hepatitis B Surface Antibody Immunity, QN <5(L) > OR = 10 mIU/mL [facility] Comment: PATIENT DOES NOT HAVE IMMUNITY TO HEPATITIS B VIRUS. For additional information, please refer to http://education.Stopango/faq/GET388 (This link is being provided for informational/ educational purposes only). 11/09/2022 8:14 AM EDT 11/09/2022 8:15 AM EDT [facility] - 11/10/2022 1:19 AM EDT FASTING:YES FASTING: YES Maria A Chavez MD LAB BLOOD ORDERABLES Final Resul t Performing Organization Address [facility] de Phone Number [address] [phone] [facility] [place] [facility] [address] [place] [phone] documented in this encounter Visit Diagnoses Diagnosis Transaminitis- Primary Nonspecific elevation of levels of transaminase or lactic acid dehydrogenase (LDH) documented in this encounter Care Teams Mixing And Dispensing Supervisor Relationship Specialty Start Date End Date Maria A Chavez MD [address] [place] [phone] PCP - General Family Medicine 11/21/22 Florian Rojsa, PharmD [address] [place] [phone] Pharmacist Internal Medicine 05/03/23 documented as of this encounter
--- OUTSIDE RECORDS SUMMARY | 2025-05-20 16:01 | XMS_ITS | Encounter Summary ---
Author Organization [employer] Address [address] [place] [address] Care Team Providers Care Cooler Worker Name Role Phone Maria A Chavez MD Primary Care Provider [phone] Florian Rojas PharmD Unavailable [phone] Reason for Visit * Reason Comments Med Refill Encounter Details Date Type Department Care Team ([facility] st Contact Info) Description 07/26/2024 Refill [facility] [address] [place], [place] [phone] Maria A Chavez MD [address] [place], [place] [phone] Social History Tobacco Use Types Packs/Day Years [...] Description 06/20/2025 3:30 PM EST Medication Management [facility] [address] [place] [address] Florian Rojas PharmD [address] [place] [address] documented as of this encounter Goals Goal Patient Goal Type Associated Problems Recent Progress Patient-Stated? Author Blood Pressure < 140/90 Blood Pressure 114/68(2024 11:45 AM EDT) No Florian Rojas PharmD Hemoglobin A1c < 7 Result Component 13.8(04/14/20 11:45 AM EDT) No Florian Rojas PharmD documented as of this encounter Visit Diagnoses Not on filedocumented in this encounter Care Teams Cooler Worker Relationship Specialty Start Date End Date Maria A Chavez MD [address] [place] [id number] PCP - General Family Medicine 06/20/22 Florian Rojas PharmD [address] [place] [phone] Pharmacist Internal Medicine 05/03/23 documented as of this encounter
--- OUTSIDE RECORDS SUMMARY | 2025-05-20 16:01 | XMS_ITS | Encounter Summary ---
Author Organization [employer] Address [address] [place] [address] Care Team Providers Care Trauma Program Manager Name Role Phone Maria A Chavez MD Primary Care Provider Florian Rojas PharmD Unavailable [phone] Reason for Visit * Reason Onset Date Comments chartprep 05/19/2025 Encounter Details Date Type Department Care Team ([facility] st Contact Info) Description 05/19/2025 Telephone [facility] [address] [place], [place] [phone] Maria A Chavez MD [address] [place] [address] chartprep Social History Tobacco Use Types Packs/Day Years [...] encounter Miscellaneous Notes * Telephone Encounter - Winnie Tay [place] - 05/19/2025 1:22 PM EDT ..Chart Prep Labs: done Images: done Vaccines due: Covid Due, Flu Due, and Shingles in pharmacy Due Referrals: Not Applicable Screenings: Eye Exam Overdue care gaps: SDOH, PHQ9, and Disability ,glu documented in this encounter Plan of Treatment Upcoming Encounters Date Type Department Care Team (Late st Contact Info) Description 06/20/2025 3:30 PM EST Medication Management [facility] [address] [place] [address] Florian Rojas PharmD [address] [place] [address] documented as of this encounter Goals Goal Patient Goal Type Associated Problems Recent Progress Patient-Stated? Author Blood Pressure < 140/90 Blood Pressure 114/68(2024 11:45 AM EDT) No Florian Rojas PharmD Hemoglobin A1c < 7 Result Component 13.8(04/14/20 11:45 AM EDT) No Florian oRjas PharmD documented as of this encounter Visit Diagnoses Not on filedocumented in this encounter Additional Health Concerns Assessment Noted Time PHQ-9 Depression Total Score: 9 02/26/20 25 2:42 PM EST documented as of this encounter Care Teams Trauma Program Manager Relationship Specialty Start Date End Date Maria A Chavez MD [address] [place], [place] [phone] PCP - General Family Medicine 06/20/22 Florian Rojas PharmD [address] [place] [address] Pharmacist Internal Medicine 05/03/23 documented as of this encounter
--- OUTSIDE RECORDS SUMMARY | 2025-05-20 16:01 | XMS_ITS | Encounter Summary ---
Author Organization [employer] Address [address] [place] [address], [place] [address] Care Team Providers Care Refrigerating Engineer Head Name Role Phone Maria A Chavez MD Primary Care Provider [phone] Florian Rojas PharmD Unavailable [phone] Reason for Visit * Reason Comments Med Refill Encounter Details Date Type Department Care Team ([facility] st Contact Info) Description 05/16/2025 Refill [facility] [address] [place], [place] [phone] Florian Rojas, PharmD [address] [place] [address] Type 2 diabetes mellitus with hyperglycemia, without [...] 5 mg as indicated. Prescription sent to [facility] pharmacy. Patient counseled on the possibility of [...] Description 06/20/2025 3:30 PM EST Medication Management [facility] [address] [place] [address] Florian Rojas PharmD [address] [place] [address] documented as of this encounter Goals Goal [...] documented as of this encounter Care Teams Refrigerating Engineer Head Relationship Specialty Start Date End Date Maria A Chavez MD [address] [place] [address] PCP - General Family Medicine 06/20/22 Florian Rojas PharmD [address] [place] [address] Pharmacist Internal Medicine 05/03/23 documented as of this encounter
--- OUTSIDE RECORDS SUMMARY | 2025-05-20 16:01 | XMS_ITS | Encounter Summary ---
Author Organization [employer] Address [address] [place] [address] Care Team Providers Care Photographic Spotter Name Role Phone Maria A Chavez MD Primary Care Provider [phone] Florian Rojas PharmD Unavailable [phone] Reason for Visit * Reason Comments Med Refill Encounter Details Date Type Department Care Team ([facility] st Contact Info) Description 09/24/2024 Refill [facility] [address] [place], [place] [phone] Florian Rojas, PharmD [address] [place] [address] Type 2 diabetes mellitus with hyperglycemia, without long-term current use of insulin ([facility]) Social History Tobacco Use Types Packs/Day Years [...] Not difficult at all 09/25/2024 2:42 PM EST Ju Kuo [place] * Over the last 2 weeks, [...] [place] Trouble relaxing 3 09/25/2024 2:42 PM EST Ju Rubio [place] Being so restless that it is hard to sit still 3 09/25/2024 2:42 PM Lisa Landers [place] Becoming easily annoyed or irritable 3 09/25/2024 2:42 PM Lisa Landers [place] Feeling afraid as if somethi ng awful might happen 3 09/25/2024 2:42 PM Lisa Landers [place] MELO-7 Total Score 21 09/25/2024 2:42 PM Ju Landesr [place] documented as of this encounter Plan of Treatment Upcoming Encounters Date Type Department Care Team (Late st Contact Info) Description 06/20/2025 3:30 PM EST Medication Management [facility] [address] [place] [address] Florian Rojas PharmD [address] [place] [address] documented as of this encounter Goals Goal [...] (HCC) documented in this encounter Care Teams Photographic Spotter Relationship Specialty Start Date End Date Maria A Chavez MD [address] [place] [phone] PCP - General Family Medicine 06/20/22 Florian Rojas, RayaD [address] [place] [phone] Pharmacist Internal Medicine 05/03/23 documented as of this encounter
== END 2025-05-20 12:28 | disposition home or self-care (01) ==
LOC: HO.HHCX 12:27
PROVIDERS: PCP Family Medicine; Visit Provider Family Medicine
DX: M54.50 Low back pain, unspecified (principal); G89.29 Other chronic pain
CPT/HCPCS: 72100

== ENCOUNTER → 2025-05-20 12:58 | Outpatient (BNV) | payer OTHER, SELFPAY | PROVIDERS: PCP Family Medicine; Visit Provider Radiology Diagnostic Radiology | DX: M51.360 Other intervertebral disc degeneration, lumbar region with discogenic back pain only (principal) | CPT/HCPCS: 72100 ==